=== PATIENT | male | born 1940 | race Caucasian/White ===

== ENCOUNTER 2017-11-08 10:01 | Emergency (ER) | payer OTHER, SELFPAY ==
[2017-11-08 10:12] VITALS: BP 160/86; PULSE 64; RESP 13; TEMP 38.1; O2SAT 98
--- NOTE | 2017-11-08 10:19 | ED_ITS ---
HPI - Fever General Chief Complaint: Fever Stated Complaint: FEVER Time Seen by Provider: 11/08/17 10:10 Source: patient Mode of arrival: EMS Limitations: no limitations History of Present Illness HPI Narrative: 77-year-old male here for evaluation of a fever. Patient states that he has had a fever since last week. He states that over the weekend he felt like that it improved somewhat but then came back again at the beginning of this week. Has not tried anything at home for it. Does denies any cough. Denies any rashes. States that he has been feeling chills. No recent travel. No recent antibiotics. States that he has been urinating although not as much as normal. Has no abdominal pain. Was brought in by EMS to ?get checked out ? Related Data Home Medications Medication Instructions Recorded Confirmed aspirin 325 mg PO DAILY 11/08/17 11/08/17 atenolol 25 mg PO DAILY 11/08/17 11/08/17 atorvastatin 40 mg PO DAILY 11/08/17 11/08/17 doxazosin 8 mg PO DAILY 11/08/17 11/08/17 glipizide 2 tab PO QACBREAK 11/08/17 11/08/17 linagliptin [Tradjenta] 5 mg PO DAILY 11/08/17 11/08/17 metformin 500 mg PO BIDAC 11/08/17 11/08/17 moexipril 15 mg PO BID 11/08/17 11/08/17 pantoprazole 20 mg PO QACBREAK 11/08/17 11/08/17 Previous Rx's Medication Instructions Recorded azithromycin See Label Instructions .ROUTE 11/08/17 .COMPLEX #6 tab Allergies Allergy/AdvReac Type Severity Reaction Status Date / Time sulfamethoxazole Allergy Intermediate Verified 11/08/17 11:19 [From Bactrim] trimethoprim [From Bactrim] Allergy Intermediate Verified 11/08/17 11:19 Review of Systems Constitutional Reports chills, Denies fatigue, Reports fever(s), Denies lethargy and Denies weakness Cardiovascular Denies chest pain, Denies irregular heart rhythm, Denies lightheadedness, Denies palpitations, Denies dyspnea, Denies dyspnea on exertion and Denies orthopnea Respiratory Denies cough, Denies dyspnea, Denies dyspnea on exertion and Denies wheezing Gastrointestinal Gastrointestinal: Denies abdominal pain, Denies change in bowel habits, Denies diarrhea, Denies nausea and Denies vomiting Genitourinary Comments: Still urinating although having some decreased output Musculoskeletal Denies back pain, Denies muscle weakness, Denies numbness and Denies tingling Integumentary/Breasts Denies pruritus, Denies erythema, Denies rash and Denies wounds Neurologic Denies numbness, Denies tingling and Denies weakness Endocrine Denies fatigue and Denies palpitations Hematologic/Lymphatic Denies easy bruising Allergic/Immunologic Denies wheezing [facility] Social History Smoking Status: Never smoker Exam Const General: cooperative and well developed Nutritional Appearance: well nourished Orientation: alert, awake, oriented x3 and not confused Resp Effort & Inspection: normal respiratory effort, able to speak in complete sentences, no respiratory distress and no use of accessory muscles Auscultation: clear to auscultation bilaterally, no rales, no rhonchi and no wheezes Cardio Rate: regular rate Rhythm: regular rhythm Heart Sounds: no click, no gallops, no murmurs and no rubs Pulses: normal peripheral pulses GI Inspection: non-distended Palpation: soft, no hepatosplenomegaly, No guarding, No pulsatile mass and No tender Auscultation: normal bowel sounds Skin General: no rashes or lesions noted, No jaundice and No petechiae Neuro General: alert, oriented x3, gait normal and no focal motor deficits Speech: speech normal Sensory Exam: no sensory deficits noted Extrem General: full ROM, no clubbing, cyanosis or edema, no pedal edema and no calf tenderness MDM - Fever MDM Narrative Medical decision making narrative: Patient is nontoxic appearing. Chest x-ray read by Radiology concern for left lower lobe pneumonia. Upon re-evaluation patient states that he has been coughing for the past several days. This is most likely the source of his fevers. He is still tolerating oral intake. Will give a prescription for antibiotics to cover for this pneumonia. He was instructed to contact his primary doctor for a follow-up. He is given return precautions. He expressed understanding and agreement with plan Lab Data Attestation: I reviewed the patient's lab results. Result diagrams: 11/08/17 10:30 11/08/17 10:30 Lab Results 11/08/17 11/08/17 11/08/17 Range/Units 10:30 10:30 10:30 WBC 8.6 (4.5-11.0) X10^3/uL RBC 4.58 (4.5-5.9) X10^6/uL Hgb 13.7 (13.5-17.5) g/dL Hct 39.7 L (41-53) % MCV 86.6 (80-100) fL MCH 29.9 (26-34) PG MCHC 34.5 (30-36) % RDW 13.8 (11.6-14.8) % Plt Count 122 L (150-400) X10^3/uL Neut % (Auto) 82.9 H (50-75) % Lymph % (Auto) 7.2 L (25-40) % [place] % (Auto) 9.8 (3-14) % Eos % (Auto) 0.0 L (2-4) % Baso % (Auto) 0.1 (0-2) % Neut # (Auto) 7100 H (3955-0822) /uL Sodium 130 L (137-145) mmol/L Potassium 3.4 (3.4-5.1) mmol/L Chloride 93.0 L (98-107) mmol/L Carbon Dioxide 24.0 (22-32) mmol/L BUN 20.0 (9-20) mg/dL Creatinine 1.10 (0.66-1.25) mg/dL Estimated GFR > 60.0 (>60) mL/min BUN/Creatinine Ratio 18.2 (6-22) Glucose 177 H (80-110) mg/dL Lactate 1.2 (0.7-2.1) mmol/L Calcium 7.6 L (8.4-10.2) mg/dL Urine Color Urine Appearance Urine pH (4.5-8.0) Ur Specific [place] (1.000-1.035) Urine Protein (Negative) Urine Glucose (UA) (Normal) g/dL Urine Ketones (NEGATIVE) Urine Occult Blood (Negative) Urine Nitrate (NEGATIVE) Urine Bilirubin (NEGATIVE) Urine Urobilinogen (0.2) E.U./dL Ur Leukocyte Esterase (NEGATIVE) Urine RBC (0-5/HPF) Amorphous Sediment Urine Bacteria (None) Granular Casts (None) Ur Culture Indicated? Micro UA Comment 11/08/17 Range/Units 10:45 WBC (4.5-11.0) X10^3/uL RBC (4.5-5.9) X10^6/uL Hgb (13.5-17.5) g/dL Hct (41-53) % MCV (80-100) fL MCH (26-34) PG MCHC (30-36) % RDW (11.6-14.8) % Plt Count (150-400) X10^3/uL Neut % (Auto) (50-75) % Lymph % (Auto) (25-40) % [place] % (Auto) (3-14) % Eos % (Auto) (2-4) % Baso % (Auto) (0-2) % Neut # (Auto) (9466-5273) /uL Sodium (137-145) mmol/L Potassium (3.4-5.1) mmol/L Chloride (98-107) mmol/L Carbon Dioxide (22-32) mmol/L BUN (9-20) mg/dL Creatinine (0.66-1.25) mg/dL Estimated GFR (>60) mL/min BUN/Creatinine Ratio (6-22) Glucose (80-110) mg/dL Lactate (0.7-2.1) mmol/L Calcium (8.4-10.2) mg/dL Urine Color Yellow Urine Appearance Sl cloudy Urine pH 5.0 (4.5-8.0) Ur Specific [place] 1.020 (1.000-1.035) Urine Protein 2+ (Negative) Urine Glucose (UA) 2+ (Normal) g/dL Urine Ketones 1+ H (NEGATIVE) Urine Occult Blood 3+ (Negative) Urine Nitrate Negative (NEGATIVE) Urine Bilirubin Negative (NEGATIVE) Urine Urobilinogen 0.2 (0.2) E.U./dL Ur Leukocyte Esterase Negative (NEGATIVE) Urine RBC 1-5/hpf (0-5/HPF) Amorphous Sediment 1+ Urine Bacteria Many (>30) H (None) Granular Casts Occasional H (None) Ur Culture Indicated? Cult not indicated Micro UA Comment Not Reportable Imaging Data Chest x-ray: Radiologist's impression: PROCEDURE: XR CHEST 1V INDICATIONS: Fever TECHNIQUE: One view of the chest was acquired. COMPARISON: None. FINDINGS: Surgical changes and devices: None except for surgical clips right neck area possibly from prior carotid endarterectomy or glandular surgery. Lungs and pleura: No pleural effusions or pneumothorax. Lungs are abnormal with reduced inspiratory volume in the retrocardiac left lower lobe pneumonia. Mediastinum: Mediastinal contours appear normal. Heart size is normal. Bones and chest wall: No suspicious bony lesions. Overlying soft tissues appear unremarkable. IMPRESSION: Retrocardiac left lower lobe pneumonia, reduced inspiratory volume. Dictated by: Jarett Pino M.D. on 11/08/2017 at 11:33 Course Orders Ordered: ED Orders 11/08/17 10:25 XR chest 1V Stat 11/08/17 10:30 Basic Metabolic Panel Stat Complete Blood Count AUTO DIFF Stat Lactate (Lactic Acid) Stat 11/08/17 10:45 Urinalysis and Microscopic Stat Acetaminophen (Tylenol) 650 mg PO Q4HR PRN PRN Reason: As Needed for Fever/Mild Pain Last Admin: 11/08/17 10:38 Dose: 650 mg Discontinued Medications Sodium Chloride (Normal Saline 0.9%) 1,000 mls @ 1,000 mls/hr IV BOLUS ONE Stop: 11/08/17 11:24 Last Admin: 11/08/17 10:39 Dose: 1,000 mls/hr Last Vital Signs Temp 100.3 F H 11/08/17 10:38 Pulse 64 11/08/17 10:12 Resp 13 11/08/17 10:12 BP 160/86 H 11/08/17 10:12 Pulse Ox 98 11/08/17 10:12 Discharge Plan Departure Patient Disposition: Home, Self-Care Clinical Impression: Pneumonia, Fever and chills Instructions: DI for Pneumonia -- Adult Activity Restrictions/Additional Instructions: Take all of your medications as instructed. Call your primary care doctor for a follow-up in the next week. Return to the emergency department for any new symptoms, problems breathing, inability to take her medications, or any other concerning symptoms Prescriptions: New azithromycin 250 mg tablet See Label Instructions .ROUTE .COMPLEX Qty: 6 RF: 0 No Action atorvastatin 40 mg tablet 40 mg PO DAILY RF: 0 metformin 500 mg tablet 500 mg PO BIDAC RF: 0 aspirin 325 mg Tablet 325 mg PO DAILY RF: 0 glipizide 10 mg tablet extended release 24hr 2 tab PO QACBREAK RF: 0 atenolol 25 mg tablet 25 mg PO DAILY RF: 0 pantoprazole 20 mg tablet,delayed release (DR/EC) 20 mg PO QACBREAK RF: 0 doxazosin 8 mg tablet 8 mg PO DAILY RF: 0 moexipril 15 mg tablet 15 mg PO BID RF: 0 linagliptin [Tradjenta] 5 mg tablet 5 mg PO DAILY RF: 0
--- NOTE | 2017-11-08 10:25 | DI.RAD.S_ITS ---
PROCEDURE: XR CHEST 1V INDICATIONS: Fever TECHNIQUE: One view of the chest was acquired. COMPARISON: None. FINDINGS: Surgical changes and devices: None except for surgical clips right neck area possibly from prior carotid endarterectomy or glandular surgery. Lungs and pleura: No pleural effusions or pneumothorax. Lungs are abnormal with reduced inspiratory volume in the retrocardiac left lower lobe pneumonia. Mediastinum: Mediastinal contours appear normal. Heart size is normal. Bones and chest wall: No suspicious bony lesions. Overlying soft tissues appear unremarkable. IMPRESSION: Retrocardiac left lower lobe pneumonia, reduced inspiratory volume. Dictated by: Jarett Pino M.D. on 11/08/2017 at 11:33 Approved by: Jarett Pino M.D. on 11/08/2017 at 11:34
[2017-11-08 10:38] VITALS: TEMP 37.9
[2017-11-08] MEDS: ACETAMINOPHEN 325 MG TABLET 650 MG PO (10:38)
[2017-11-08] MEDS: SODIUM CHLORIDE 0.9% 1,000 ML 1000 ML IV (10:39)
[2017-11-08 10:41] LABS: Add Manual Diff / Slide Review NO; Basophils Percent Auto 0.1 % (0-2); Hematocrit 39.7 % (41-53); Hemoglobin 13.7 g/dL (13.5-17.5); Lymphocytes Percent Auto 7.2 % (25-40); Mean Corpuscular HGB Conc 34.5 % (30-36); Mean Corpuscular Hemoglobin 29.9 PG (26-34); Mean Corpuscular Volume 86.6 fL (80-100); Monocytes Percent Auto 9.8 % (3-14); Neutrophils Absolute Auto 7100 /uL (3000-5900); Neutrophils Percent Auto 82.9 % (50-75); Platelet Count 122 X10^3/uL (150-400); Red Blood Cell Count 4.58 X10^6/uL (4.5-5.9); Red Cell Distribution Width 13.8 % (11.6-14.8); White Blood Cell Count 8.6 X10^3/uL (4.5-11.0)
[2017-11-08 10:53] LABS: BUN Creatinine Ratio 18.2 (6-22); Calcium 7.6 mg/dL (8.4-10.2); Estimated Glomerular Filt Rate > 60.0 mL/min (>60); Glucose 177 mg/dL (80-110); HEMOLYSIS < 15 (0-50); Lactate (Lactic Acid) 1.2 mmol/L (0.7-2.1); Potassium 3.4 mmol/L (3.4-5.1); Sodium 130 mmol/L (137-145)
[2017-11-08 10:55] LABS: Appearance Urine UA SL CLOUDY; Bilirubin Urine UA NEGATIVE (NEGATIVE); Color Urine UA YELLOW; Glucose Urine UA 2+ g/dL (Normal); Ketones Urine UA 1+ (NEGATIVE); Leukocyte Esterase Urine UA NEGATIVE (NEGATIVE); Nitrite Urine UA NEGATIVE (NEGATIVE); Occult Blood Urine UA 3+ (Negative); Protein Urine UA 2+ (Negative); Urobilinogen Urine UA 0.2 E.U./dL (0.2)
[2017-11-08 11:12] LABS: Amorphous Sediment Urine 1+; Bacteria Urine Many (>30); RBC Urine 1-5/HPF (0-5/HPF)
[2017-11-08 11:13] LABS: Culture Indicated Urine Cult Not Indicated; Granular Casts Urine Occasional
[2017-11-08 11:57] VITALS: BP 145/60; PULSE 70; RESP 15; TEMP 37.8; O2SAT 96
== END 2017-11-08 12:09 | disposition home or self-care (01) ==
PROVIDERS: Emergency Provider Emergency Medicine; Family Provider Family Medicine; PCP Family Medicine
DX: J18.9 Pneumonia, unspecified organism (principal); R50.9 Fever, unspecified; R68.83 Chills (without fever)
CPT/HCPCS: 36591; 71045; 80048; 81001; 83605; 85025; 96360; 99282; 99284

== ENCOUNTER → 2017-11-14 11:06 | Outpatient (CLI) | payer OTHER, SELFPAY ==
--- NOTE | 2017-11-14 | DI.US.S_ITS ---
PROCEDURE: US PERIPH VENOUS LOW EXTREM RT INDICATIONS: PAIN IN RIGHT CALF TECHNIQUE: Real-time imaging, as well as color and pulse Doppler interrogation, were performed of the lower extremity deep veins from the inguinal ligament to the popliteal fossa. COMPARISON: None. FINDINGS: The deep veins are normally compressible, and free of intraluminal thrombus. Color and pulse Doppler demonstrate normal phasic intraluminal flow. There is normal augmentation response to distal compression maneuver. IMPRESSION: Negative for DVT Dictated by: Alexandr Vega M.D. on 11/14/2017 at 14:15 Approved by: Alexandr Vega M.D. on 11/14/2017 at 14:16
== END ==
PROVIDERS: Family Provider Family Medicine; PCP Family Medicine; Visit Provider Family Medicine
DX: M79.661 Pain in right lower leg (principal)
CPT/HCPCS: 93971

== ENCOUNTER → 2017-11-28 12:51 | Outpatient (CLI) | payer OTHER, SELFPAY ==
--- NOTE | 2017-11-28 | DI.RAD.S_ITS ---
PROCEDURE: XR CHEST 2V INDICATIONS: 77 year-old male with right lower lobe pneumonia symptoms. TECHNIQUE: 2 views of the chest were acquired. COMPARISON: [facility], CR, XR CHEST 1V, 11/08/2017, 10:30. FINDINGS: Surgical changes and devices: Patient is status post transcatheter cardiac valve replacement. Right neck surgical clips are present. Lungs and pleura: No pleural effusions or pneumothorax. Posterior left hemidiaphragm is obscured by localized airspace opacity on the lateral projection. Lung volumes are decreased. Mediastinum: Mediastinal contours are normal. Heart size is normal. Bones and chest wall: No suspicious bony abnormalities. Soft tissues appear unremarkable. IMPRESSION: Possible posterior left lung base pneumonia. Decreased lung volumes. Dictated by: Abner Gonzalez M.D. on 11/28/2017 at 13:26 Approved by: Abner Gonzalez M.D. on 11/28/2017 at 13:29
== END ==
PROVIDERS: PCP Family Medicine; Visit Provider Family Medicine
DX: J18.1 Lobar pneumonia, unspecified organism (principal)
CPT/HCPCS: 71046

== ENCOUNTER → 2018-08-16 09:19 | Outpatient (CLI) | payer OTHER, SELFPAY ==
--- NOTE | 2018-08-16 | DI.MRI.S_ITS ---
PROCEDURE: MR LUMBAR SPINE WO CON INDICATIONS: BILATERAL HIP PAIN TECHNIQUE: Noncontrast sagittal T1 spin echo and T2 fast echo, sagittal STIR, axial T1 and T2 fast spin echo through the lumbar spine. In cases with scoliosis, additional coronal T2 fast spin echo may be performed. COMPARISON: None. FINDINGS: Image quality: Excellent. Alignment and Curvature: There is normal bony alignment. Bone Marrow: Marrow is of normal overall signal. No acute vertebral body compression fractures. Spinal Cord: Conus medullaris terminates at the L1 level. Visualized cord demonstrates normal signal and size. Paraspinous Soft Tissues: No paravertebral masses. Numerous peripelvic cysts can be seen involving the kidneys. T12-L1: Normal appearance. L1-L2: Mild loss of disc height is seen. Loss of disc signal is seen. Mild to moderate disc bulge is seen. Moderate bilateral neural foraminal narrowing is seen. Mild central canal narrowing is seen. L2-L3: Mild loss of disc height is seen. Loss of disc signal is seen. Moderate disc bulge is seen, which is eccentric to the left. There is mild to moderate right-sided and moderate left-sided neural foraminal narrowing seen. Mild to moderate central canal narrowing is seen. L3-L4: The disc height is well-preserved. Loss of disc signal is seen at this level. Moderate disc bulge is seen, which is eccentric to the left. Mild facet joint hypertrophy is seen. There is mild to moderate bilateral neural foraminal narrowing seen, left worse than right. Mild to moderate central canal narrowing is seen. L4-L5: The disc height is well-preserved. Loss of disc signal is seen at this level. At least moderate disc bulge is seen. Moderate facet joint hypertrophy is seen. Moderate to severe bilateral neural foraminal narrowing is seen. There is a degree of impingement seen upon the exiting nerve roots. At least moderate central canal narrowing is seen. L5-S1: At least moderate loss of disc height and disc signal are seen. Along the posterior aspect of the annulus fibrosis, there is a focal annular fissure, as on series 4 image 9. Moderate disc bulge is seen, with a central/left disc extrusion. There is inferior migration of disc material. Reactive marrow endplate changes are seen which are hypointense on T1-weighted imaging and hyperintense on T2 weighted imaging, which is most consistent with edema (Modic type I changes). Moderate to severe bilateral neural foraminal narrowing is seen, right greater than left. There is a degree of impingement seen upon the exiting nerve roots. Moderate central canal narrowing is seen. IMPRESSION: Multiple levels of lumbar spine degenerative changes are seen, which are overall most prominent at L5-S1 level. At this level, there is endplate edema with moderate to severe bilateral neural foraminal narrowing and moderate to severe central canal narrowing. A central/left disc extrusion is also seen at this level. Dictated by: Damir Murrell M.D. on 08/16/2018 at 9:52 Approved by: Damir Murrell M.D. on 08/16/2018 at 9:58
== END ==
PROVIDERS: Family Provider Family Medicine; PCP Family Medicine; Visit Provider Physical Medicine & Rehabilitation Pain Medicine
DX: M25.551 Pain in right hip (principal); M25.552 Pain in left hip; M47.817 Spondylosis without myelopathy or radiculopathy, lumbosacral region; M47.816 Spondylosis without myelopathy or radiculopathy, lumbar region; M48.07 Spinal stenosis, lumbosacral region; M48.061 Spinal stenosis, lumbar region without neurogenic claudication
CPT/HCPCS: 72148

== ENCOUNTER → 2019-03-07 07:39 | Outpatient (CLI) | payer OTHER, SELFPAY ==
--- NOTE | 2019-03-07 | DI.MRI.S_ITS ---
PROCEDURE: MR HIPS LEONILA WO CON INDICATIONS: BILATERAL PRIMARY OSTEOARTHRITIS TECHNIQUE: Noncontrast coronal T1 spin echo and STIR through the bony pelvis. Coronal and axial T2 fast spin echo with fat saturation, sagittal T1 spin echo, and oblique axial T2 fast spin echo with fat saturation through the hip. COMPARISON: None. FINDINGS: Image quality: Excellent. Bones and joints: There is mild to moderate bilateral hip joint space narrowing slightly worse on the right side with subchondral sclerosis. No marrow edema. No acute fracture or dislocation. No gross intraosseous lesions. No avascular necrosis of the femoral heads. The visualized lower lumbar spine appears normally aligned. Degenerative disc disease in visualized lower lumbar spine is seen most prominent at L5-S1 level. Tendons and ligaments: The gluteus medius and minimus tendons appear intact, without associated muscle atrophy. The nearby proximal iliotibial band also appears intact. The iliopsoas tendon appears intact, without adjacent bursal fluid collections or evidence for impingement syndrome. The origin of the hamstring tendon is intact at the ischial tuberosity, as well as the associated sacrotuberous ligament. The straight and reflected heads of the rectus femoris muscle origin appear intact, as well as the conjoint tendon. The ligamentum teres appears intact where visualized. Labrum and cartilage: There is suggestion of bilateral superior anterior labral tear in the absence of intra-articular contrast. The alpha angle of the femur is within normal limits at less than 55 degrees. Soft tissues: Visualized muscles demonstrate normal bulk and internal signal. Quadratus femoris muscle demonstrates no internal edema to suggest ischiofemoral impingement. The proximal sciatic neurovascular bundle appears normal adjacent to the hamstring tendons. No free pelvic fluid. Bladder wall thickness is normal. Genitourinary structures and bowel loops appear normal where visualized. IMPRESSION: 1. Right worse than left bilateral hip joint osteoarthritis. No marrow edema. No fracture or dislocation. No evidence of avascular necrosis of femoral head. 2. Degenerative disc disease at L5-S1 level. 3. Finding is suspicious for bilateral superior anterior hip labral tear in the absence of intra-articular contrast. Dictated by: Amaury Kaur M.D. on 03/07/2019 at 11:24 Approved by: Amaury Kaur M.D. on 03/07/2019 at 14:36
== END ==
PROVIDERS: PCP Family Medicine; Visit Provider Orthopaedic Surgery
DX: M16.0 Bilateral primary osteoarthritis of hip (principal); M51.37 Other intervertebral disc degeneration, lumbosacral region
CPT/HCPCS: 73721

== ENCOUNTER → 2019-04-05 16:40 | Outpatient (CLI) | payer OTHER, SELFPAY | PROVIDERS: PCP Family Medicine | DX: Z23 Encounter for immunization (principal) | CPT/HCPCS: 90471; 90662 ==

== ENCOUNTER → 2019-06-05 10:02 | Outpatient (CLI) | payer OTHER, SELFPAY ==
--- NOTE | 2019-06-05 12:19 | DIET.PN ---
Diabetes Intake: Initial Assessment Assess: Mr. Ty is a 78 YOM referred for type 2 diabetes. He was diagnosed several years ago and has been taking metformin, glipizide, and lantus. He has not been consistent with monitoring his BG until recently. He continues to notice an upward trend as the day progresses starting with a FBG in the 130 increasing to 250-280 by the end of the day. He reports no specific dietary habits. He does not eat 3 meals per day, but rather grazes all day long. He admits to having a sweet tooth and is always looking for sugar free cookies and snacks. Neither he nor his cook regularly as his does dialysis 3x/wk and often does not have energy to prepare meals. He has recently been place on Humalog which he has not yet began as he was concerned with how this medication works. He is not interested in checking his BG several times per day and therefore purchased the freestyle humberto sensor for continuous glucose monitoring. His concern with this new regimen is how much to take and what his goal numbers should be. Labs: Per pt report: A1c: 8.5 (05/15) FB?s Evenin-300 Meds: lantus: 13 u am/pm Novolo u 2x/day (not yet taking) Metformin: 500 mg BID Glipizde XL: 10 mg x2 am Diet: per 24 hr recall: inconsistent dietary patterns. Reports grazing throughout the day. Does not count/understand carbohydrates DX: Altered nutrition related laboratory values related to impaired glucose metabolism, lack of previous exposure to nutrition information as evidenced by pt report, diagnosis of diabetes, previous diet high in refined carbohydrates. Intervention: 1. Discussed pathophysiology of diabetes. Reviewed A1c and its correlation to blood glucose numbers. Discussed recommended BG ranges. 2. Discussed importance of self-monitoring, how often, and when to check. Discussed use of freestyle humberto CGM. 3. Reviewed hyper/hypoglycemia and treatment. 4. Reviewed safe disposal of equipment (strip/lancets/insulin needles). 5. Discussed medication management. Described difference between rapid and long acting insulin. 6. Discussed appropriate use of Humalog and when to administer. Recommend patient start with 3 units with meals greater than 30 grams of carb. Pt will keep a record of FBG, pre-meal, and evening glucose. Will evaluate at follow up. 7. Discussed administer sites. Recommend patient alternate outer thigh and stomach. Reviewed appropriate steps for administering. Monitor/Evaluate: Will discuss carbohydrate counting and review blood glucose log and discuss medication management at follow up on Jul 13.
== END ==
PROVIDERS: PCP Family Medicine; Visit Provider Family Medicine
DX: E11.9 Type 2 diabetes mellitus without complications (principal); Z79.84 Long term (current) use of oral hypoglycemic drugs; Z79.4 Long term (current) use of insulin; Z71.3 Dietary counseling and surveillance
CPT/HCPCS: 97802

== ENCOUNTER → 2019-07-20 10:44 | Outpatient (CLI) | payer OTHER, SELFPAY ==
--- NOTE | 2019-07-20 14:16 | DIET.PN ---
INDIVIDUAL NUTRITION ASSESSMENT? ? ASSESS:? Mr. Ty is a 78 yom?seen for diabetes nutrition F/U. He has been wearing a CGM for 2 weeks and brings his results in with him today. His patterns appear to be consistent; however, it is difficult to associate his hyperglycemic events. He has very inconsistent dietary patterns and is far less worried about his caloric intake as he is his numbers and medication management. He reports he does not eat much sugar, but then states he had a cinnamon roll for breakfast without the glaze. He has been taking 13 u of lantus a.m. and p.m., but he has not yet started his Humalog which we discussed in our prior appt. He presents with similar questions from our previous visit regarding accuracy of his CGM, when to take his Humalog, and what his glucose numbers should be. ? LABS: A1c: 8.5 FB-121 between BF & L: 211-340 between L&D: 102-180 ? Weight: 218 ? DIET: inconsistent dietary patterns ? EXERCISE:??no exercise, but is active with heavy lifting at work ? NUTRITION Dx? 1. Altered nutrition related labs r/t type 2 DM, inconsistent carbohydrate intake as evidenced by pt report, dietary recall.?? ? INTERVENTION? 1. Reviewed blood sugar log and implications/reasons for elevated/decreased blood sugar.? Spent a considerate amount of time discussing appropriate glucose levels, the importance of meal timing and medications in pattern management. ? 2. Reviewed meal intake and importance of balanced meals (kirit to prevent overeating).??? 3. Discussed possible lag time between CGM and POC finger sticks. Recommended patient continue to monitor pre-meal ?finger stick? BG to ensure appropriate meal time insulin is achieved. 4. Discussed importance of limiting sugar/starchy foods for better glucose control. Will spend our next appt specifically on CHO counting and easy meal preparation. ? MONITOR/EVALUATE: Pt receptive to information provided.? Follow up scheduled for 2 weeks to review to CGM with novolog and discuss CHO counting.
== END ==
PROVIDERS: PCP Family Medicine; Visit Provider Family Medicine
DX: E11.9 Type 2 diabetes mellitus without complications (principal)
CPT/HCPCS: 97803

== ENCOUNTER 2019-07-21 14:29 | Emergency (ER) | payer OTHER, SELFPAY ==
[2019-07-21 14:29] VITALS: BP 110/78; PULSE 63; RESP 16; O2SAT 97; BMI 31.6
[2019-07-21] MEDS: HEPARIN DRIP 25,000 UNIT/500 ML IV.SOLN 20 UNIT IV (14:32)
[2019-07-21] MEDS: ASPIRIN 81 MG CHEW TAB 324 MG PO (14:32)
[2019-07-21] MEDS: HEPARIN 5,000 UNIT/ML VIAL 5000 UNIT IV (14:32)
--- NOTE | 2019-07-21 14:36 | ED_ITS ---
HPI - Chest Pain General Chief Complaint: Chest Pain Stated Complaint: STEMI Time Seen by Provider: 07/21/19 14:31 Source: patient Mode of arrival: Ambulatory Limitations: no limitations History of Present Illness HPI narrative: The patient is a 78-year-old male employee of [employer] with history of coronary artery disease including stents and TAVR, presenting with chest discomfort shortness of breath and diaphoresis. He says he actually had an episode like this yesterday which resolved. 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 Nonradiating he's extremely diaphoretic and short of breath. It started roughly 5 minutes prior to arrival MD complaint: chest pain Onset (ago): minute(s) Onset: during exertion Pain location: substernal Severity: moderate Quality: tightness and heaviness Pain radiation: none Relieving factors: nothing Exacerbating factors: nothing Related Data Home Medications Medication Instructions Recorded Confirmed aspirin 325 mg PO DAILY 11/08/17 11/08/17 atenolol 25 mg PO DAILY 11/08/17 11/08/17 atorvastatin 40 mg PO DAILY 11/08/17 11/08/17 doxazosin 8 mg PO DAILY 11/08/17 11/08/17 glipizide 2 tab PO QACBREAK 11/08/17 11/08/17 linagliptin [Tradjenta] 5 mg PO DAILY 11/08/17 11/08/17 metformin 500 mg PO BIDAC 11/08/17 11/08/17 moexipril 15 mg PO BID 11/08/17 11/08/17 pantoprazole 20 mg PO QACBREAK 11/08/17 11/08/17 Previous Rx's Medication Instructions Recorded azithromycin See Rx Instructions .ROUTE 11/08/17 .COMPLEX #6 tab Allergies Allergy/AdvReac Type Severity Reaction Status Date / Time sulfamethoxazole Allergy Intermediate Verified 11/08/17 11:19 [From Bactrim] trimethoprim [From Bactrim] Allergy Intermediate Verified 11/08/17 11:19 Review of Systems Review of Systems Narrative: GENERAL: Denies chills, fatigue, malaise, fever, sweats, travel HEENT: Denies sinus pain, ear pain, sore throat, difficulty swallowing, neck pain RESPIRATORY: Denies dyspnea, cough, wheezing, hemoptysis, sputum. CARDIOVASCULAR: See HPI GASTROINTESTINAL: Denies nausea, vomiting, abdominal pain, diarrhea, constipation, melena. : Denies dysuria, frequency, incontinence, hematuria, urinary retention, flank pain. MUSCULOSKELETAL: Denies weakness, joint pain, or bony pain SKIN: No rash, no erythema, no pruritus NEUROLOGIC: Denies weakness, dizziness, headache, numbness, change in speech, confusion PSYCHIATRIC: No concerning psychosocial issues. 12 point review of systems is negative except for those stated above and HPI Patient History Medical History Coronary artery disease (Acute) Diabetes (Acute) Hyperlipidemia (Acute) Hypertension (Acute) Social History Smoking Status: Never smoker Smoking Status: Never smoker alcohol intake frequency: 0-2 drinks per day Substance Use Type: does not use Exam Initial Vital Signs Initial Vital Signs: Vital Signs Pulse Rate 63 07/21/19 14:29 Respiratory Rate 16 07/21/19 14:29 Blood Pressure 110/78 07/21/19 14:29 Pulse Oximetry 97 07/21/19 14:29 GENERAL: Pale diaphoretic male appears in discomfort HEENT: Head atraumatic,EOMI, pupils reactive CARDIOVASCULAR: Regular rate and rhythm without murmurs, rubs or gallops. RESPIRATORY: Breath sounds equal bilaterally, no wheezes rales or rhonchi. ABDOMEN: Soft, nontender. Normoactive bowel sounds all 4 quadrants. No guarding or rebound. EXTREMITIES: Normal range of motion, no clubbing or edema. Neurovascularly intact NEUROLOGICAL: Alert and oriented x4.Normal gait and speech. Cranial nerves II through XII grossly intact. SKIN: Warm, dry, no laceration, no petechiae, no rashes or lesions. Course Orders Ordered: ED Orders 07/21/19 14:34 XR chest 1V Stat EKG-12 Lead Stat 07/21/19 14:40 Complete Blood Count AUTO DIFF Stat Comprehensive Metabolic Panel Stat Lipase Stat Partial Thromboplastin Time DAILY Troponin & CK Cardiac Panel Stat Discontinued Medications Aspirin (Aspirin Chew) 324 mg PO NOW ONE Stop: 07/21/19 14:32 Last Admin: 07/21/19 14:32 Dose: 324 mg Documented by: BRIANNA Heparin Sodium (Porcine) (Heparin) 5,000 unit IV NOW ONE Stop: 07/21/19 14:32 Last Admin: 07/21/19 14:32 Dose: 5,000 unit Documented by: BRIANNA Sodium Chloride (Normal Saline 0.9%) 1,000 mls @ 150 mls/hr IV CONT JOHN Last Admin: 07/21/19 14:45 Dose: Not Given Documented by: BRIANNA Heparin Sodium/Dextrose (Heparin Drip) 25,000 unit in 500 mls @ 20 mls/hr IV CONT JOHN; Protocol Last Titration: 07/21/19 14:38 Dose: 0 units/hr, 0 mls/hr Documented by: Admin: 07/21/19 14:32 Dose: 1,000 units/hr, 20 mls/hr Documented by: BRIANNA Vital Signs Vital signs: Vital Signs - 8 hr 07/21/19 14:29 Pulse Rate 63 Respiratory Rate 16 Blood Pressure 110/78 Pulse Oximetry 97 MDM - Chest Pain Lab Data Result diagrams: 07/21/19 14:40 07/21/19 14:40 Labs: Lab Results 07/21/19 07/21/19 07/21/19 Range/Units 14:40 14:40 14:40 WBC 10.0 (4.5-11.0) X10^3/uL RBC 4.59 (4.5-5.9) X10^6/uL Hgb 13.8 (13.5-17.5) g/dL Hct 40.0 L (41-53) % MCV 87.1 (80-100) fL MCH 30.0 (26-34) PG MCHC 34.4 (30-36) % RDW 13.3 (11.6-14.8) % Plt Count 137 L (150-400) X10^3/uL Neut % (Auto) 62.2 (50-75) % Lymph % (Auto) 24.4 L (25-40) % [place] % (Auto) 12.6 (3-14) % Eos % (Auto) 0.6 L (2-4) % Baso % (Auto) 0.2 (0-2) % Neut # (Auto) 6200 ([address]187) /uL Lymph # (Auto) 2400 (1657-6219) /uL [place] # (Auto) 1300 H (0-900) /uL Eos # (Auto) 100 (0-450) /uL Baso # (Auto) 0 (0-100) /uL APTT 32 (26.4-36.2) SECONDS Sodium 140 (137-145) mmol/L Potassium 4.3 (3.4-5.1) mmol/L Chloride 107 (98-107) mmol/L Carbon Dioxide 22 (22-32) mmol/L BUN 32 H (9-20) mg/dL Creatinine 1.30 H (0.66-1.25) mg/dL Estimated GFR 53.1 L (>60) mL/min BUN/Creatinine Ratio 24.6 H (6-22) Glucose 202 H (80-110) mg/dL Calcium 9.3 (8.4-10.2) mg/dL Total Bilirubin 0.6 (0.2-1.3) mg/dL AST 80 H (17-59) IU/L ALT 32 (<50) IU/L Alkaline Phosphatase 60 (38-126) U/L Total Creatine Kinase 342 H (55-170) U/L CK-MB (CK-2) 6.61 H (<2.37) ng/mL CK-MB (CK-2) Rel Index 1.9 (1.5-5.0) % Troponin I 8.470 H* (0.01-0.034) ng/mL Total Protein 7.3 (6.3-8.2) g/dL Albumin 3.8 (3.5-5.0) g/dL Globulin 3.5 (1.7-4.1) g/dL Albumin/Globulin Ratio 1.1 (1.0-2.8) Lipase 222 (23-300) U/L Imaging Data Chest x-ray: Attestation: I personally reviewed and interpreted this imaging study as follows: My Impression: No acute cardiopulmonary process Radiologist's Impression: PROCEDURE: XR CHEST 1V INDICATIONS: Chest pain TECHNIQUE: One view of the chest was acquired. COMPARISON: [facility], CR, XR CHEST 2V, 11/28/2017, 12:33. FINDINGS: Surgical changes and devices: Post surgical changes at the base of the right neck are incidentally noted. Lungs and pleura: Lungs are clear. No pleural effusions or pneumothorax. Subtle area of a linear increased density is evident at the left costophrenic angle, suggesting scarring versus atelectasis. Mediastinum: Mediastinal contours appear normal. Heart size is borderline enlarged. Bones and chest wall: No suspicious bony lesions. Overlying soft tissues appear unremarkable. IMPRESSION: No acute cardiopulmonary process is evident. Dictated by: Pollo Connor M.D. on 07/21/2019 at 13:43 ECG Data Attestation: I personally reviewed and interpreted this ECG as follows: Prior ECG tracings: not available for review Interpretation: ST elevation V1 and V2 with peak Ts in V3 and be for ST depression in 2 3 AVF no priors to compare MDM Narrative Medical decision making narrative: STEMI identified immediately is. EMS likely already in the emergency department. I called and spoke with Dr. Gann ER physician at [facility] updated patient's symptoms test results happy to accept patient for emergent transfer. Heparin was started in the emergency department he was given aspirin and nitro by EMS. Critical Care Time Critical Care Time Critical Care Time: Yes Total Critical Care Time: 10 Attestation: The high probability of a clinically significant, sudden or life threatening deterioration of the [cardiovascular] system(s) required my full and direct attention, intervention and personal management. The aggregate critical care time was [10] minutes. This time is in addition to time spent performing reported procedures but includes the following: [x] Data Review and interpretation [x] Patient assessment and monitoring of vital signs [x] Documentation [x] Medication orders and management Discharge Plan Departure Patient Disposition: [facility] Clinical Impression: ST elevation (STEMI) myocardial infarction Qualifiers: Involved coronary artery: LAD coronary artery Qualified Code(s): I21.02 - ST elevation (STEMI) myocardial infarction involving left anterior descending coron matilde artery Discharge Date/Time: 07/21/19 14:40 Prescriptions: No Action atorvastatin 40 mg tablet 40 mg PO DAILY RF: 0 metformin 500 mg tablet 500 mg PO BIDAC RF: 0 aspirin 325 mg Tablet 325 mg PO DAILY RF: 0 glipizide 10 mg tablet extended release 24hr 2 tab PO QACBREAK RF: 0 atenolol 25 mg tablet 25 mg PO DAILY RF: 0 pantoprazole 20 mg tablet,delayed release (DR/EC) 20 mg PO QACBREAK RF: 0 doxazosin 8 mg tablet 8 mg PO DAILY RF: 0 moexipril 15 mg tablet 15 mg PO BID RF: 0 linagliptin [Tradjenta] 5 mg tablet 5 mg PO DAILY RF: 0 azithromycin 250 mg tablet See Rx Instructions .ROUTE .COMPLEX Qty: 6 RF: 0 Referrals: Ian Manning MD [Primary Care Provider] -
[2019-07-21 14:44] LABS: Add Manual Diff / Slide Review NO; Basophils Absolute Auto 0 /uL (0-100); Basophils Percent Auto 0.2 % (0-2); Eosinophils Absolute Auto 100 /uL (0-450); Eosinophils Percent Auto 0.6 % (2-4); Hemoglobin 13.8 g/dL (13.5-17.5); Lymphocytes Absolute Auto 2400 /uL (1100-4500); Lymphocytes Percent Auto 24.4 % (25-40); Mean Corpuscular HGB Conc 34.4 % (30-36); Mean Corpuscular Volume 87.1 fL (80-100); Monocytes Absolute Auto 1300 /uL (0-900); Monocytes Percent Auto 12.6 % (3-14); Neutrophils Absolute Auto 6200 /uL (1500-7000); Neutrophils Percent Auto 62.2 % (50-75); Platelet Count 137 X10^3/uL (150-400); Red Blood Cell Count 4.59 X10^6/uL (4.5-5.9); Red Cell Distribution Width 13.3 % (11.6-14.8)
[2019-07-21 14:56] LABS: Alanine Aminotransferase 32 IU/L (<50); Albumin 3.8 g/dL (3.5-5.0); Albumin Globulin Ratio 1.1 (1.0-2.8); Alkaline Phosphatase 60 U/L (38-126); Aspartate Aminotransferase 80 IU/L (17-59); BUN Creatinine Ratio 24.6 (6-22); Bilirubin Total 0.6 mg/dL (0.2-1.3); Blood Urea Nitrogen 32 mg/dL (9-20); Calcium 9.3 mg/dL (8.4-10.2); Carbon Dioxide 22 mmol/L (22-32); Chloride 107 mmol/L (98-107); Creatine Kinase 342 U/L (55-170); Estimated Glomerular Filt Rate 53.1 mL/min (>60); Globulin 3.5 g/dL (1.7-4.1); Glucose 202 mg/dL (80-110); HEMOLYSIS < 15 (0-50); Lipase 222 U/L (23-300); Potassium 4.3 mmol/L (3.4-5.1); Sodium 140 mmol/L (137-145); Total Protein 7.3 g/dL (6.3-8.2)
[2019-07-21 15:11] LABS: CKMB % Relative Index 1.9 % (1.5-5.0); Creatine Kinase MB 6.61 ng/mL (<2.37)
[2019-07-21 15:17] LABS: PTT Partial Thromboplastin Tim 32 SECONDS (26.4-36.2)
== END 2019-07-21 14:40 | disposition short-term general hospital (02) ==
PROVIDERS: Emergency Provider Emergency Medicine; PCP Family Medicine
DX: I21.02 ST elevation (STEMI) myocardial infarction involving left anterior descending coronary artery (principal); I10 Essential (primary) hypertension; E78.5 Hyperlipidemia, unspecified; I25.10 Atherosclerotic heart disease of native coronary artery without angina pectoris; E11.9 Type 2 diabetes mellitus without complications
CPT/HCPCS: 36415; 71045; 80053; 82550; 82553; 83690; 84484; 85025; 85730; 93005; 93010; 96374; 99284; 99285; J1644

== ENCOUNTER 2019-07-28 09:47 | Inpatient (IN) | payer OTHER, SELFPAY ==
[2019-07-28] VITALS (14 sets, daily range): BP systolic 103–133; BP diastolic 55–89; PULSE 68–81; RESP 16–30; TEMP 36.4–37.4; O2SAT 95–100; BMI 32.6; BMI 31.2
--- NOTE | 2019-07-28 | DI.ECHO.S_ITS ---
[facility]---------+ [facility] +---------+ : : [address] : : : : [place] : : : : [id number] : : : : Phone: [phone]+ Echocardiogram Report + + :Name: DAVID COATES Study Date: 07/29/2019 Height: 68 in : :[facility] Exam Location: [facility] Weight: 208 lb : : Gender: Male BSA: 2.1 m2 : :: 1940 Age: 78 yrs BP: 129/94 mmHg: :Reason For Study: Recent STEMI : :Ordering Physician: Mckinley : :Hospitalist Performed By: Julianna Tadeo : :Referring: ALLY NEGRO : + + Interpretation Summary The left ventricle is normal in size. Left ventricular systolic function is severely reduced. The ejection fraction is estimated to be 20-25%. There has been no significant change since the previous study based on personal review of prior study. Compared to the prior exam, the left ventricular wall motion has not changed. Procedure: A two-dimensional transthoracic echocardiogram with color flow and Doppler was performed in limited views only. Focused echocardiogram to assess wall motion. See prior echocardiogram for assessment of valves. The study quality was technically adequate. Comparison is made with the echocardiogram of 07/22/2019. The patient was in normal sinus rhythm during the exam. Left Ventricle: The left ventricle is normal in size. Left ventricular wall thickness is mildly increased. There is no thrombus. Left ventricular systolic function is severely reduced. The ejection fraction is estimated to be 20-25%. There has been no significant change since the previous study. Compared to the prior exam, the left ventricular wall motion has not changed. Right Ventricle: The right ventricle is not well visualized. Mitral Valve: There is mild mitral regurgitation. Pericardium/ Pleura There is no pericardial effusion. There is no pleural effusion. MMode/2D Measurements & Calculations LVIDd: 5.7 cm LVIDs: 3.7 cm FS: 35.2 % IVSd: 1.1 cm LVPWd: 1.6 cm LV solano. diameter/BSA (cm/m^2): 2.7 LV sys. diameter/BSA (cm/m^2): 1.8 Reading Physician:04:10 PM
--- NOTE | 2019-07-28 10:06 | ED_ITS ---
HPI - General Adult General Chief complaint: Shortness of Breath/Dyspnea Stated complaint: difficulty breathing, dry mouth Time Seen by Provider: 07/28/19 09:59 Source: patient Mode of arrival: Ambulatory Limitations: no limitations History of Present Illness HPI narrative: Patient is an 78-year-old male. Known coronary artery disease. Within the past week was seen here in our emergency department and transferred to [facility] with a diagnosis of a ST-elevation NM. Patient states that he did have a cardiac stent placed. Was discharged home 4 days ago. States that he has been taking his medications. States that since his discharge she has been short of breath. He returns today for continued short of breath. He states he has a follow-up appointment on the with Cardiology and he felt like he could not wait that long because of the shortness of breath and also his children thought that he was having more problems. He denies any chest pain. No lightheadedness. He states that his symptoms today are not any worse than when he was discharged from the hospital. No lower extremity swelling. Related Data Home Medications Medication Instructions Recorded Confirmed glipizide 2 tab PO QACBREAK 11/08/17 07/28/19 metformin 500 mg PO BIDAC 11/08/17 07/28/19 apixaban 5 mg PO BID 07/28/19 07/28/19 aspirin [Adult Low Dose Aspirin] 81 mg PO DAILY 07/28/19 07/28/19 brimonidine 1 drp EYE-BOTH BID 07/28/19 07/28/19 coenzyme Q10 100 mg PO DAILY 07/28/19 07/28/19 dorzolamide-timolol (PF) 1 drp OPHTHALMIC (EYE) BID 07/28/19 07/28/19 insulin glargine [Lantus U-100 13 unit SUBCUT BID 07/28/19 07/28/19 Insulin] latanoprost 1 drp OPHTHALMIC (EYE) BEDTIME 07/28/19 07/28/19 lisinopril 2.5 mg PO DAILY 07/28/19 07/28/19 metoprolol succinate 25 mg PO DAILY 07/28/19 07/28/19 pantoprazole 20 mg PO DAILY 07/28/19 07/28/19 rosuvastatin 40 mg PO BEDTIME 07/28/19 07/28/19 spironolactone 12.5 mg PO DAILY 07/28/19 07/28/19 Allergies Allergy/AdvReac Type Severity Reaction Status Date / Time sulfamethoxazole Allergy Intermediate Verified 07/28/19 10:24 [From Bactrim] trimethoprim [From Bactrim] Allergy Intermediate Verified 07/28/19 10:24 Review of Systems Constitutional Constitutional: Denies fatigue and Denies headache(s) ENT Ears, Nose, Mouth, and Throat: Denies headache(s) Cardiovascular Cardiovascular: Denies chest pain, Denies syncope, Denies rapid heart rate, Denies pedal edema, Denies edema, Denies palpitations, Reports dyspnea and Reports dyspnea on exertion Respiratory Respiratory: Denies cough, Reports dyspnea and Reports dyspnea on exertion Gastrointestinal Gastrointestinal: Denies abdominal pain, Denies nausea and Denies vomiting Genitourinary Genitourinary: Denies dysuria Musculoskeletal Musculoskeletal: Denies myalgias and Denies arthralgias Integumentary/Breasts Skin/Breast: Denies lesions and Denies rash Neurologic Neurologic: Denies behavioral changes, Denies syncope and Denies headache(s) Psychiatric Psychiatric: Denies behavioral changes Endocrine Endocrine: Denies fatigue and Denies palpitations Hematologic/Lymphatic Comments: On blood thinners Allergic/Immunologic Allergic/Immunologic: Denies urticaria Patient History Medical History Coronary artery disease (Acute) Diabetes (Acute) Hyperlipidemia (Acute) Hypertension (Acute) Social History Smoking Status: Never smoker Smoking Status: Never smoker alcohol intake frequency: 0-2 drinks per day Substance Use Type: does not use Exam Initial Vital Signs Initial Vital Signs: Vital Signs Temperature 97.7 F 07/28/19 09:48 Pulse Rate 79 07/28/19 09:48 Respiratory Rate 26 H 07/28/19 09:48 Blood Pressure 133/84 07/28/19 09:48 Pulse Oximetry 99 07/28/19 09:48 Const General: cooperative, comfortable and well developed Limitations: mental status not altered [facility] Head: normal to inspection and normocephalic Resp Effort & Inspection: no cough, labored, no pursed lip breathing, no retractions, no stridor, tachypneic, no tracheal deviation and no tripod positioning Auscultation: clear to auscultation bilaterally Cardio Rate: regular rate Rhythm: regular rhythm GI Inspection: non-distended Palpation: soft Skin Lesions: no lesions Rashes: no rashes Neuro General: alert, awake and oriented x3 Cognition: normal cognition Speech: speech normal Extrem General: normal to inspection and capillary refill normal Psych Appearance: grossly normal and well kempt Scores GCS Michael coma scale eye opening: Spontaneous [place] coma scale verbal response: Orientated Michael coma scale motor response: Obey commands [place] coma scale total score: 15 Course Orders Ordered: ED Orders 07/28/19 10:07 XR chest 1V Stat 07/28/19 10:20 Complete Blood Count AUTO DIFF Stat Comprehensive Metabolic Panel Stat Lipase Stat NT-proBNP (BNP-Adult 18+) Stat Partial Thromboplastin Time Stat Procalcitonin Stat Prothrombin Time INR Stat Troponin I Stat 07/28/19 12:35 Troponin & CK Cardiac Panel Stat 07/28/19 14:16 Consult to Physician Routine Discontinued Medications Aspirin (Aspirin Chew) 324 mg PO NOW ONE Stop: 07/28/19 10:07 Last Admin: 07/28/19 10:34 Dose: 324 mg Documented by: SHIRA Furosemide (Lasix) 40 mg IV NOW ONE Stop: 07/28/19 10:26 Last Admin: 07/28/19 10:34 Dose: 40 mg Documented by: SHIRA Vital Signs Vital signs: Vital Signs - 8 hr 07/28/19 09:48 07/28/19 09:56 07/28/19 10:23 Temperature 97.7 F 97.7 F Pulse Rate 79 79 78 Respiratory Rate 26 H 26 H 24 Blood Pressure 133/84 Blood Pressure [Right Arm] 133/84 131/73 Pulse Oximetry 99 99 100 07/28/19 10:50 07/28/19 12:00 07/28/19 12:40 Temperature Pulse Rate 76 77 73 Respiratory Rate 20 18 Blood Pressure Blood Pressure [Right Arm] 118/80 128/89 133/65 Pulse Oximetry 100 99 100 07/28/19 13:20 07/28/19 13:30 07/28/19 14:00 Temperature Pulse Rate 68 74 74 Respiratory Rate 18 26 H 29 H Blood Pressure Blood Pressure [Right Arm] 107/68 119/71 124/66 Pulse Oximetry 97 99 100 Medical Decision Making Medical Records Medical records reviewed: Yes I reviewed the patient's medical records. Lab Data Lab results reviewed: Yes I reviewed the patient's lab results. Result diagrams: 07/28/19 10:20 07/28/19 10:20 Labs: Lab Results 07/28/19 07/28/19 07/28/19 Range/Units 10:20 10:20 10:20 WBC 12.4 H (4.5-11.0) X10^3/uL RBC 4.05 L (4.5-5.9) X10^6/uL Hgb 12.1 L (13.5-17.5) g/dL Hct 35.7 L (41-53) % MCV 88.1 (80-100) fL MCH 29.9 (26-34) PG MCHC 33.9 (30-36) % RDW 13.4 (11.6-14.8) % Plt Count 283 (150-400) X10^3/uL Neut % (Auto) 69.3 (50-75) % Lymph % (Auto) 16.9 L (25-40) % [place] % (Auto) 11.8 (3-14) % Eos % (Auto) 1.1 L (2-4) % Baso % (Auto) 0.9 (0-2) % Neut # (Auto) 8600 H (9848-5084) /uL Lymph # (Auto) 2100 (3381-7926) /uL [place] # (Auto) 1500 H (0-900) /uL Eos # (Auto) 100 (0-450) /uL Baso # (Auto) 100 (0-100) /uL PT 23.0 H (10.1-12.7) SECONDS INR 2.0 H (0.9-1.3) APTT 37 H D (26.4-36.2) SECONDS Sodium 136 L (137-145) mmol/L Potassium 4.3 (3.4-5.1) mmol/L Chloride 105 (98-107) mmol/L Carbon Dioxide 22 (22-32) mmol/L BUN 28 H (9-20) mg/dL Creatinine 1.00 (0.66-1.25) mg/dL Estimated GFR > 60.0 (>60) mL/min BUN/Creatinine Ratio 28.0 H (6-22) Glucose 146 H (80-110) mg/dL Calcium 8.8 (8.4-10.2) mg/dL Total Bilirubin 0.8 (0.2-1.3) mg/dL AST 51 (17-59) IU/L ALT 35 (<50) IU/L Alkaline Phosphatase 54 (38-126) U/L Total Creatine Kinase Cancelled CK-MB (CK-2) Cancelled CK-MB (CK-2) Rel Index Cancelled Troponin I 12.200 H* (0.01-0.034) ng/mL NT-Pro-B Natriuret Pep 64381 H (<450) pg/mL Total Protein 6.5 (6.3-8.2) g/dL Albumin 3.1 L (3.5-5.0) g/dL Globulin 3.4 (1.7-4.1) g/dL Albumin/Globulin Ratio 0.9 L (1.0-2.8) Lipase 87 D (23-300) U/L Procalcitonin (<0.5) ng/mL 07/28/19 07/28/19 Range/Units 10:20 12:35 WBC (4.5-11.0) X10^3/uL RBC (4.5-5.9) X10^6/uL Hgb (13.5-17.5) g/dL Hct (41-53) % MCV (80-100) fL MCH (26-34) PG MCHC (30-36) % RDW (11.6-14.8) % Plt Count (150-400) X10^3/uL Neut % (Auto) (50-75) % Lymph % (Auto) (25-40) % [place] % (Auto) (3-14) % Eos % (Auto) (2-4) % Baso % (Auto) (0-2) % Neut # (Auto) (3027-7735) /uL Lymph # (Auto) (0909-7929) /uL [place] # (Auto) (0-900) /uL Eos # (Auto) (0-450) /uL Baso # (Auto) (0-100) /uL PT (10.1-12.7) SECONDS INR (0.9-1.3) APTT (26.4-36.2) SECONDS Sodium (137-145) mmol/L Potassium (3.4-5.1) mmol/L Chloride (98-107) mmol/L Carbon Dioxide (22-32) mmol/L BUN (9-20) mg/dL Creatinine (0.66-1.25) mg/dL Estimated GFR (>60) mL/min BUN/Creatinine Ratio (6-22) Glucose (80-110) mg/dL Calcium (8.4-10.2) mg/dL Total Bilirubin (0.2-1.3) mg/dL AST (17-59) IU/L ALT (<50) IU/L Alkaline Phosphatase (38-126) U/L Total Creatine Kinase 238 H CK-MB (CK-2) 2.45 H CK-MB (CK-2) Rel Index 1.0 L Troponin I 11.800 H* (0.01-0.034) ng/mL NT-Pro-B Natriuret Pep (<450) pg/mL Total Protein (6.3-8.2) g/dL Albumin (3.5-5.0) g/dL Globulin (1.7-4.1) g/dL Albumin/Globulin Ratio (1.0-2.8) Lipase (23-300) U/L Procalcitonin < 0.05 (<0.5) ng/mL Imaging Data Chest x-ray: Radiologist's Impression: [address] [address] XRay Report Signed Patient: Jason Ty FMR#: [id number] : 9Acct:[id number] Age/Sex: 78 / MDate of Service: 07/28/19 Loc: ED Accession Number: [id number] Procedure: XR chest 1V Ordering Provider: Junaid Denson D.O. PROCEDURE: XR CHEST 1V INDICATIONS: Shortness of breath TECHNIQUE: One view of the chest was acquired. COMPARISON: [facility], CR, XR CHEST 1V, 11/08/2017, 10:30. [facility], CR, XR CHEST 2V, 11/28/2017, 12:33. [facility], CR, XR CHEST 1V, 07/21/2019, 14:32. FINDINGS: Surgical changes and devices: A percutaneously placed aortic valve replacement can be seen. Lower right neck clips can be seen. Lungs and pleura: There is mild interstitial prominence. No pleural effusions or pneumothorax. Mediastinum: The cardiac contours are mildly enlarged. The aorta demonstrates calcification and tortuosity. Bones and chest wall: No suspicious bony lesions. Age-appropriate bony degenerative changes are seen. Overlying soft tissues appear unremarkable. IMPRESSION: Mild cardiomegaly and interstitial prominence. Please correlate with patient presentation, physical examination findings, and laboratory values for congestive heart failure. Postoperative and degenerative changes are seen. Dictated by: Damir Murrell M.D. on 07/28/2019 at 9:43 Approved by: Damir Murrell M.D. on 07/28/2019 at 9:45 ECG Data Attestation: I personally reviewed and interpreted this ECG as follows: Prior ECG tracings: available for review Interpretation: EKG upon arrival Sinus rhythm Occasional PVCs Ventricular rate is 77 Left axis deviation Normal QRS Normal QTC ST elevation V2 V3 V4 V5 T-wave inversion 1 in aVL Comparison EKG 07/21/2019 Similar to today's EKG Repeat EKGs at 1010 a.m., 1015 hours, similar to presentation EKG MDM Narrative Medical decision making narrative: Patient with known coronary artery disease. Had a ST-elevation NM with a cardiac catheterization 1 week ago. Arrives today with shortness of breath. Appears that this is not new. He states that he has been having it since he was discharged from the hospital. No fevers. No cough. No chest pain. Has ST elevations on his EKG today but they are unchanged from his prior EKGs. I did discuss the case with Dr. Ward with cardiology. He was able to look up the patient's report. Does not appear that these ST elevations are new. There is some concern for left ventricular aneurysm given the persistent ST elevations. His troponin is also elevated but is down from a peak of 29. A repeat 2 hours later shows that it is not increasing in actually decreasing very small amount. Does have an elevated BNP. Chest x-ray is concerning for fluid overload. I do suspect his symptoms today are related to CHF. He did have a echocardiogram during his last admission which showed an ejection fraction of 30-35%. There was some question as to whether not he has been taking his diuretic since his discharge. I did discuss the case with Dr. castillo who is on-call for the patient's primary doctor. Will admit for continued diuresis and a repeat echocardiogram per Cardiology recommendation. Discussed this with the patient. He expressed understanding and agreement with plan. Discharge Plan Departure Patient Disposition: Admitted As Inpatient Clinical Impression: Congestive heart failure Qualifiers: Heart failure type: unspecified Heart failure chronicity: unspecified Qualified Code(s): I50.9 - Heart failure, unspecified
[2019-07-28] MEDS: FUROSEMIDE 40 MG/4 ML VIAL IV (10:34)
[2019-07-28] MEDS: ASPIRIN 81 MG CHEW TAB 324 MG PO (10:34)
[2019-07-28 10:36] LABS: Add Manual Diff / Slide Review NO; Basophils Absolute Auto 100 /uL (0-100); Basophils Percent Auto 0.9 % (0-2); Eosinophils Absolute Auto 100 /uL (0-450); Eosinophils Percent Auto 1.1 % (2-4); Hematocrit 35.7 % (41-53); Hemoglobin 12.1 g/dL (13.5-17.5); Lymphocytes Absolute Auto 2100 /uL (1100-4500); Lymphocytes Percent Auto 16.9 % (25-40); Mean Corpuscular HGB Conc 33.9 % (30-36); Mean Corpuscular Hemoglobin 29.9 PG (26-34); Mean Corpuscular Volume 88.1 fL (80-100); Monocytes Absolute Auto 1500 /uL (0-900); Monocytes Percent Auto 11.8 % (3-14); Neutrophils Absolute Auto 8600 /uL (1500-7000); Neutrophils Percent Auto 69.3 % (50-75); Platelet Count 283 X10^3/uL (150-400); Red Blood Cell Count 4.05 X10^6/uL (4.5-5.9); Red Cell Distribution Width 13.4 % (11.6-14.8); White Blood Cell Count 12.4 X10^3/uL (4.5-11.0)
[2019-07-28 10:48] LABS: PTT Partial Thromboplastin Tim 37 SECONDS (26.4-36.2)
--- NOTE | 2019-07-28 10:51 | PC.NURSE ---
Pt w/ recent STEMI and stent placement at [facility]. Also has h/o tavr procedure. States skipped doses of spironolactone r/t issue with pharmacy. Missed two days (Tue/) and took Tuesday am. c/o exertional shortness of breath, inability to lay down flat and sleep, persistent cough. Denies fever / chills. Denies chest pain.
[2019-07-28 11:17] LABS: NT-proBNP (BNP-Adult 18+) 12500 pg/mL (<450)
[2019-07-28 11:24] LABS: Alanine Aminotransferase 35 IU/L (<50); Albumin 3.1 g/dL (3.5-5.0); Albumin Globulin Ratio 0.9 (1.0-2.8); Alkaline Phosphatase 54 U/L (38-126); Aspartate Aminotransferase 51 IU/L (17-59); Bilirubin Total 0.8 mg/dL (0.2-1.3); Blood Urea Nitrogen 28 mg/dL (9-20); Calcium 8.8 mg/dL (8.4-10.2); Carbon Dioxide 22 mmol/L (22-32); Chloride 105 mmol/L (98-107); Estimated Glomerular Filt Rate > 60.0 mL/min (>60); Globulin 3.4 g/dL (1.7-4.1); Glucose 146 mg/dL (80-110); HEMOLYSIS 23 (0-50); Lipase 87 U/L (23-300); Potassium 4.3 mmol/L (3.4-5.1); Sodium 136 mmol/L (137-145); Total Protein 6.5 g/dL (6.3-8.2)
[2019-07-28 11:25] LABS: Procalcitonin < 0.05 ng/mL (<0.5)
[2019-07-28 13:12] LABS: Creatine Kinase 238 U/L (55-170)
[2019-07-28 13:22] LABS: Creatine Kinase MB 2.45 ng/mL (<2.37)
--- NOTE | 2019-07-28 17:47 | PM.HP.1 ---
History of Present Illness History of Present Illness Date Patient Seen: 07/28/19 Time Patient Seen: 17:47 Chief complaint: difficulty breathing, dry mouth Narrative: 78-year-old male with history of right carotid endarterectomy in 2012 and coronary artery angioplasty with stenting in 2017, presents from the ED secondary to worsening dyspnea at rest. He is status post a STEMI 8 days ago requiring a complex PCI of an acutely thrombosed and totally occluded LAD utilizing a combination of aspiration thrombectomy, balloon angioplasty, and drug-eluting stent x2. Procedure was complicated by ventricular tachycardia and cardiogenic shock and had long procedure time. Patient was on pressors in the CCU but improved substantially over the first 12 hours. His resultant acute systolic heart failure was treated with diuresis and he was started on a beta [place] for afterload reduction. He did have transient atrial fibrillation that cardiology elected to anticoagulate secondary to his CHADS score as well as the possibility of a coronary artery thrombus. He was discharged on apixaban and dual anti-platelet therapy 4 days ago. At time of discharge, he was also feeling short of breath as well but symptoms have progressed. Denies any current chest pain or pressure. ?It was nothing like it was when I was having a heart attack, that was like a ton of metal on my chest.? Last night, he did not get any rest, was coughing nonproductively and felt like he had to do something. He was discharged with new cardiac medications including spironolactone which he accidentally did not take until yesterday. Denies any peripheral edema. No nausea or vomiting, appetite is normal. No change in bowel or bladder symptoms. No change in mentation. Vital signs in the ED included temperature of 97.7, pulse 79, respirations 26, blood pressure 133/84, O2 saturation 98% on room air. Lab work significant for an elevated troponin of 12.2, trending down upon recheck in the ED to 10.8. Peak troponin during last hospitalization was 28.0. BMP also notably elevated at 12,500. Chest x-ray showed mild cardiomegaly with interstitial prominence. EKG showed normal sinus rhythm with a ventricular rate of 77, left axis deviation and ST elevation in V2-V4. There was also T-wave inversion in 1 and aVL. Patient's folder inspector, Dr. Ward was consulted and he noted that previous EKG on 07/21/2019 showed the same. Serial EKGs in the ED also showed no change. Social Work Instructor recommended inpatient hospitalization for diuresis due to acute CHF and repeat echocardiogram. Echo during last inpatient stay revealed an ejection fraction of 30-35%, the apical cap, anterior wall, mid to distal anterior septum, and mid to distal anterior lateral wall were all severely hypokinetic to akinetic. The inferior wall also had moderate hypokinesis. There was normal right ventricular size and function. Patient's bioprosthetic aortic valve was well seated with a mildly increased gradient. The ascending aorta was also mild to moderately enlarged at 4.5 cm. 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 Lives at home with his partner, Jose R Bazan. Never-smoker. Patient History Medical History Coronary artery disease (Acute) Diabetes (Acute) Hyperlipidemia (Acute) Hypertension (Acute) Family & Social History Social History: household members spouse Prior Living Arrangements House Safety & Behavioral: Feels Safe in Current Yes Environment Been Physically Hurt or No Threatened By a Person Suicidal Ideation Description None Tobacco & Substance use: Smoking Status Never smoker alcohol intake never alcohol intake frequency 0-2 drinks per day Substance Use Type does not use Meds Home Medications and Allergies Home Medications Medication Instructions Recorded Confirmed Type glipizide 2 tab PO QACBREAK 11/08/17 07/28/19 History metformin 500 mg PO BIDAC 11/08/17 07/28/19 History apixaban 5 mg PO BID 07/28/19 07/28/19 History aspirin [Adult Low Dose Aspirin] 81 mg PO DAILY 07/28/19 07/28/19 History brimonidine 1 drp EYE-BOTH BID 07/28/19 07/28/19 History cholecalciferol (vitamin D3) 2,000 unit PO DAILY 07/28/19 07/28/19 History clopidogrel 75 mg PO DAILY 07/28/19 07/28/19 History coenzyme Q10 100 mg PO DAILY 07/28/19 07/28/19 History dorzolamide-timolol (PF) 1 drp OPHTHALMIC (EYE) BID 07/28/19 07/28/19 History insulin glargine [Lantus U-100 13 unit SUBCUT BID 07/28/19 07/28/19 History Insulin] latanoprost 1 drp OPHTHALMIC (EYE) BEDTIME 07/28/19 07/28/19 History lisinopril 2.5 mg PO DAILY 07/28/19 07/28/19 History metoprolol succinate 25 mg PO DAILY 07/28/19 07/28/19 History pantoprazole 20 mg PO DAILY 07/28/19 07/28/19 History rosuvastatin 40 mg PO BEDTIME 07/28/19 07/28/19 History spironolactone 12.5 mg PO DAILY 07/28/19 07/28/19 History Allergies Allergy/AdvReac Type Severity Reaction Status Date / Time sulfamethoxazole Allergy Intermediate Verified 07/28/19 10:24 [From Bactrim] trimethoprim [From Bactrim] Allergy Intermediate Verified 07/28/19 10:24 Review of Systems Review of Systems ROS: Yes All systems reviewed with the patient and are negative except as otherwise documented Exam Vital Signs (past 8 hours): - 07/28/19 09:48 07/28/19 09:56 07/28/19 10:23 Temperature 97.7 F 97.7 F Pulse Rate 79 79 78 Respiratory Rate 26 H 26 H 24 Blood Pressure 133/84 Blood Pressure [Right Arm] 133/84 131/73 Pulse Oximetry 99 99 100 07/28/19 10:50 07/28/19 12:00 07/28/19 12:40 Temperature Pulse Rate 76 77 73 Respiratory Rate 20 18 Blood Pressure Blood Pressure [Right Arm] 118/80 128/89 133/65 Pulse Oximetry 100 99 100 07/28/19 13:20 07/28/19 13:30 07/28/19 14:00 Temperature Pulse Rate 68 74 74 Respiratory Rate 18 26 H 29 H Blood Pressure Blood Pressure [Right Arm] 107/68 119/71 124/66 Pulse Oximetry 97 99 100 07/28/19 14:58 07/28/19 15:23 07/28/19 15:45 Temperature 97.6 F Pulse Rate 80 78 81 Respiratory Rate 30 H 30 H 25 H Blood Pressure 117/76 Blood Pressure [Right Arm] 103/60 112/55 L Pulse Oximetry 99 97 97 Oxygen Delivery Method Room Air Oxygen Flow Rate 0 Narrative Exam Narrative: GENERAL: Alert and oriented, appearing stated age and in no acute distress. HEENT: Head normocephalic/atraumatic. LUNGS: Diminished inspiratory effort with expiratory cough with any amount of deep inhalation. No rhonchi or rales. CV: Normal S1 and S2 with regular rate and rhythm, no audible murmurs, rubs or gallops. ABDOMEN: Soft, non-tender, non-distended, no organomegaly. Positive bowel sounds. EXTREMITIES: No clubbing, cyanosis, or edema. NEURO: Cranial nerves II through XII grossly intact, no focal deficits. PSYCH: Alert and oriented x 3. SKIN: Large contusion, right upper thigh. Objective Labs Result Diagrams: 07/28/19 10:20 07/28/19 10:20 Labs: Laboratory Results - last 24 hr 07/28/19 07/28/19 07/28/19 10:20 10:20 10:20 WBC 12.4 H RBC 4.05 L Hgb 12.1 L Hct 35.7 L MCV 88.1 MCH 29.9 MCHC 33.9 RDW 13.4 Plt Count 283 Neut % (Auto) 69.3 Lymph % (Auto) 16.9 L Jennings % (Auto) 11.8 Eos % (Auto) 1.1 L Baso % (Auto) 0.9 Neut # (Auto) 8600 H Lymph # (Auto) 2100 Jennings # (Auto) 1500 H Eos # (Auto) 100 Baso # (Auto) 100 PT 23.0 H INR 2.0 H APTT 37 H D Sodium 136 L Potassium 4.3 Chloride 105 Carbon Dioxide 22 BUN 28 H Creatinine 1.00 Estimated GFR > 60.0 BUN/Creatinine Ratio 28.0 H Glucose 146 H Calcium 8.8 Total Bilirubin 0.8 AST 51 ALT 35 Alkaline Phosphatase 54 Total Creatine Kinase Cancelled CK-MB (CK-2) Cancelled CK-MB (CK-2) Rel Index Cancelled Troponin I 12.200 H* NT-Pro-B Natriuret Pep 29762 H Total Protein 6.5 Albumin 3.1 L Globulin 3.4 Albumin/Globulin Ratio 0.9 L Lipase 87 D Procalcitonin 07/28/19 07/28/19 10:20 12:35 WBC RBC Hgb Hct MCV MCH MCHC RDW Plt Count Neut % (Auto) Lymph % (Auto) Jennings % (Auto) Eos % (Auto) Baso % (Auto) Neut # (Auto) Lymph # (Auto) Jennings # (Auto) Eos # (Auto) Baso # (Auto) PT INR APTT Sodium Potassium Chloride Carbon Dioxide BUN Creatinine Estimated GFR BUN/Creatinine Ratio Glucose Calcium Total Bilirubin AST ALT Alkaline Phosphatase Total Creatine Kinase 238 H CK-MB (CK-2) 2.45 H CK-MB (CK-2) Rel Index 1.0 L Troponin I 11.800 H* NT-Pro-B Natriuret Pep Total Protein Albumin Globulin Albumin/Globulin Ratio Lipase Procalcitonin < 0.05 Assessment & Plan Assessment & Plan narrative: Assessment 1: Acute systolic heart failure, secondary to recent STEMI, failed outpatient therapy. Plan: IV furosemide 40 mg b.i.d., close monitoring of electrolytes. Will keep potassium greater than 4.0 and Mg greater than 2.0. Strict I/Os, daily weights. Will update echo per cardiology recommendation. Assessment 2: STEMI, recent, status post PCI 8 days ago. Plan: Continue home dual antiplatelet therapy, metoprolol, and spironolactone. Telemetry. Will continue to trend troponin closely. Assessment 3: Coronary artery disease, chronic. Plan: Continue atorvastatin. Assessment 4: Diabetes mellitus type 2 with long-term use of insulin, chronic. Plan: Continue home metformin, glipizide, and Lantus. Assessment 5: Atrial fibrillation, transient during last inpatient hospitalization. Plan: Continue rate control with metoprolol and anticoagulation with Eliquis. Assessment 6: Status post transcatheter aortic valve replacement, chronic, stable. Plan: Will update echo. Assessment 7: Hypertension, chronic. Plan: Continue home lisinopril. Assessment 8: Glaucoma, chronic. Plan: Continue home medications. Assessment 9: Obesity with BMI of 32, chronic. Plan: Dietary consult. Assessment 10: GERD, chronic. Plan: Continue home Protonix. DVT prophylaxis: Anticoagulated as above. Code: Full.
[2019-07-28] MEDS: FUROSEMIDE 100 MG/10 ML VIAL 60 MG IV (19:00)
[2019-07-28] MEDS: ROSUVASTATIN 10 MG TABLET 40 MG PO (21:40)
[2019-07-28] MEDS: APIXABAN 5 MG TABLET PO (21:40)
[2019-07-28] MEDS: INSULIN GLARGINE 100 UNIT/ML 3ML PEN 13 UNIT SUBCUT (21:46)
--- NOTE | 2019-07-28 23:39 | PC.NURSE ---
Admission Note: Pt admitted from ER for SOB. Pt arrives on RA, SPO2 mid 90s. Pt with tachypnea, and SOB with exertion. Pt denies chest pain or pressure. Mild crackles in Bilateral LL. Given 60 mg iv lasix with uop since hospital admission >2 L. Pt alert and oriented, high fall risk, bed alarm on and functioning. Pt instructed to call for assistance with transferring. Pt with call light in reach. Will continue to monitor, notify MD with changes.
[2019-07-29] VITALS (8 sets, daily range): BP systolic 96–129; BP diastolic 55–94; PULSE 60–81; RESP 16–20; TEMP 36.6–38.1; O2SAT 94–98
--- NOTE | 2019-07-29 05:32 | PC.NURSE ---
Patient disgruntled about having a bed alarm. FOREIGN EXCHANGE TRADER explained need, I explained need. Kept saying [facility] doesn't do that. Informed of safety rules, still not happy with bed alarm. Bed alarm remains on.
[2019-07-29 06:00] LABS: Add Manual Diff / Slide Review NO; Basophils Absolute Auto 0 /uL (0-100); Basophils Percent Auto 0.3 % (0-2); Eosinophils Absolute Auto 100 /uL (0-450); Eosinophils Percent Auto 1.2 % (2-4); Hematocrit 36.5 % (41-53); Hemoglobin 12.2 g/dL (13.5-17.5); Lymphocytes Absolute Auto 2400 /uL (1100-4500); Lymphocytes Percent Auto 20.5 % (25-40); Mean Corpuscular HGB Conc 33.5 % (30-36); Mean Corpuscular Hemoglobin 29.4 PG (26-34); Mean Corpuscular Volume 87.9 fL (80-100); Monocytes Absolute Auto 1200 /uL (0-900); Monocytes Percent Auto 10.2 % (3-14); Neutrophils Absolute Auto 7800 /uL (1500-7000); Neutrophils Percent Auto 67.8 % (50-75); Platelet Count 298 X10^3/uL (150-400); Red Blood Cell Count 4.15 X10^6/uL (4.5-5.9); Red Cell Distribution Width 13.6 % (11.6-14.8); White Blood Cell Count 11.5 X10^3/uL (4.5-11.0)
[2019-07-29 06:11] LABS: Magnesium 1.8 mg/dL (1.6-2.3)
[2019-07-29 06:14] LABS: Blood Urea Nitrogen 30 mg/dL (9-20); Calcium 8.6 mg/dL (8.4-10.2); Carbon Dioxide 29 mmol/L (22-32); Chloride 101 mmol/L (98-107); Estimated Glomerular Filt Rate 58.3 mL/min (>60); Glucose 108 mg/dL (80-110); HEMOLYSIS < 15 (0-50); Potassium 3.5 mmol/L (3.4-5.1); Sodium 136 mmol/L (137-145)
[2019-07-29 06:24] LABS: NT-proBNP (BNP-Adult 18+) 13000 pg/mL (<450)
[2019-07-29] MEDS: CLOPIDOGREL 75 MG TABLET PO (08:13)
[2019-07-29] MEDS: APIXABAN 5 MG TABLET PO ×2 (08:13→20:26)
[2019-07-29] MEDS: PANTOPRAZOLE 20 MG TABLET PO (08:13)
[2019-07-29] MEDS: ASPIRIN EC 81 MG TABLET PO (08:13)
[2019-07-29] MEDS: METFORMIN HCL 500 MG TABLET PO ×2 (08:13→16:43)
[2019-07-29] MEDS: CHOLECALCIFEROL (VITAMIN D3) 1,000 UNIT TABLET 2000 UNIT PO (08:13)
[2019-07-29] MEDS: METOPROLOL ER 25 MG TABLET 12.5 MG PO (08:14)
[2019-07-29] MEDS: lisinopriL 5 MG TABLET 2.5 MG PO (08:14)
[2019-07-29] MEDS: SPIRONOLACTONE 25 MG TABLET 12.5 MG PO (08:15)
[2019-07-29] MEDS: glipiZIDE XL 5 MG TAB 20 MG PO (08:16)
--- NOTE | 2019-07-29 08:31 | P.PN_ITS ---
Subjective Subjective Date Patient Seen: 07/29/19 Time Patient Seen: 08:31 Interval history: Did well overnight, denies any chest pain. Shortness of breath improved, but still unable to lie flat. Irritated that he needs to be observed while using the bathroom. They didn't do that at [facility]. Tolerated his dinner well with no nausea or vomiting. Exam Vital Signs (past 8 hours): - 07/29/19 04:04 07/29/19 08:14 Temperature 98.7 F Pulse Rate 73 67 Respiratory Rate 18 Blood Pressure 96/63 123/61 Pulse Oximetry 96 Oxygen Delivery Method Room Air Oxygen Flow Rate 0 Narrative Exam Narrative: GENERAL: Alert and oriented, appearing stated age and in no acute distress. HEENT: Head normocephalic/atraumatic. LUNGS: Diminished inspiratory effort with expiratory cough with any amount of deep inhalation. No rhonchi or rales. CV: Normal S1 and S2 with regular rate and rhythm, no audible murmurs, rubs or gallops. ABDOMEN: Soft, non-tender, non-distended, no organomegaly. Positive bowel sounds. EXTREMITIES: No clubbing, cyanosis, or edema. NEURO: Cranial nerves II through XII grossly intact, no focal deficits. PSYCH: Alert and oriented x 3. SKIN: Large contusion, right upper thigh. Objective Labs Result Diagrams: 07/29/19 05:35 07/29/19 05:35 Labs: Laboratory Results - last 24 hr 07/28/19 07/28/19 07/28/19 10:20 10:20 10:20 WBC 12.4 H RBC 4.05 L Hgb 12.1 L Hct 35.7 L MCV 88.1 MCH 29.9 MCHC 33.9 RDW 13.4 Plt Count 283 Neut % (Auto) 69.3 Lymph % (Auto) 16.9 L [place] % (Auto) 11.8 Eos % (Auto) 1.1 L Baso % (Auto) 0.9 Neut # (Auto) 8600 H Lymph # (Auto) 2100 [place] # (Auto) 1500 H Eos # (Auto) 100 Baso # (Auto) 100 PT 23.0 H INR 2.0 H APTT 37 H D Sodium 136 L Potassium 4.3 Chloride 105 Carbon Dioxide 22 BUN 28 H Creatinine 1.00 Estimated GFR > 60.0 BUN/Creatinine Ratio 28.0 H Glucose 146 H Calcium 8.8 Magnesium Total Bilirubin 0.8 AST 51 ALT 35 Alkaline Phosphatase 54 Total Creatine Kinase Cancelled CK-MB (CK-2) Cancelled CK-MB (CK-2) Rel Index Cancelled Troponin I 12.200 H* NT-Pro-B Natriuret Pep 02163 H Total Protein 6.5 Albumin 3.1 L Globulin 3.4 Albumin/Globulin Ratio 0.9 L Lipase 87 D Procalcitonin 07/28/19 07/28/19 07/29/19 10:20 12:35 05:35 WBC 11.5 H RBC 4.15 L Hgb 12.2 L Hct 36.5 L MCV 87.9 MCH 29.4 MCHC 33.5 RDW 13.6 Plt Count 298 Neut % (Auto) 67.8 Lymph % (Auto) 20.5 L [place] % (Auto) 10.2 Eos % (Auto) 1.2 L Baso % (Auto) 0.3 Neut # (Auto) 7800 H Lymph # (Auto) 2400 [place] # (Auto) 1200 H Eos # (Auto) 100 Baso # (Auto) 0 PT INR APTT Sodium Potassium Chloride Carbon Dioxide BUN Creatinine Estimated GFR BUN/Creatinine Ratio Glucose Calcium Magnesium Total Bilirubin AST ALT Alkaline Phosphatase Total Creatine Kinase 238 H CK-MB (CK-2) 2.45 H CK-MB (CK-2) Rel Index 1.0 L Troponin I 11.800 H* NT-Pro-B Natriuret Pep Total Protein Albumin Globulin Albumin/Globulin Ratio Lipase Procalcitonin < 0.05 07/29/19 07/29/19 05:35 05:35 WBC RBC Hgb Hct MCV MCH MCHC RDW Plt Count Neut % (Auto) Lymph % (Auto) [place] % (Auto) Eos % (Auto) Baso % (Auto) Neut # (Auto) Lymph # (Auto) [place] # (Auto) Eos # (Auto) Baso # (Auto) PT INR APTT Sodium 136 L Potassium 3.5 Chloride 101 Carbon Dioxide 29 BUN 30 H Creatinine 1.20 Estimated GFR 58.3 L BUN/Creatinine Ratio 25.0 H Glucose 108 Calcium 8.6 Magnesium 1.8 Total Bilirubin AST ALT Alkaline Phosphatase Total Creatine Kinase CK-MB (CK-2) CK-MB (CK-2) Rel Index Troponin I 10.300 H* NT-Pro-B Natriuret Pep 92139 H Total Protein Albumin Globulin Albumin/Globulin Ratio Lipase Procalcitonin Assessment & Plan Assessment & Plan narrative: Assessment 1: Acute systolic heart failure, secondary to recent STEMI, present during last admission and currently not resolved with failure of outpatient therapy. BNP extremely high and trending up this morning at 13,000. Potassium and magnesium still normal but trending down, -2350 fluid balance overnight. Troponin is also being closely monitored, still quite elevated 9 days out from his NSTEMI, unclear at this point if there is mixed etiology from his acute CHF versus a secondary cardiac event. Per cardiology, needs inpatient monitoring, telemetry, IV diuresis, and repeat echo. Plan: Will increase IV furosemide to 120 mg b.i.d. x 1, and follow electrolytes, possible need for switch to torsemide if nonresponsive. Will start potassium 40 mg p.o. twice daily and Slow-Mag 64 mg p.o. q.d. to keep potassium greater than 4.0 and Mg greater than 2.0. Strict I/Os, daily weights. Echo pending per cardiology recommendation. Assessment 2: STEMI, recent, status post PCI 8 days ago, troponin still high but trending down. Plan: Continue home dual antiplatelet therapy, metoprolol, and spironolactone. Telemetry. Will continue to trend troponin closely. Assessment 3: Coronary artery disease, chronic. Plan: Continue atorvastatin. Assessment 4: Diabetes mellitus type 2 with long-term use of insulin, chronic. Plan: Continue home metformin, glipizide, and Lantus. Assessment 5: Atrial fibrillation, transient during last inpatient hospitalization, no recurrence. Plan: Continue rate control with metoprolol and anticoagulation with Eliquis. Assessment 6: Status post transcatheter aortic valve replacement, chronic, stable. Plan: Will update echo. Assessment 7: Hypertension, chronic, blood pressure running low with extra diuretic. Plan: Will hold home lisinopril. Assessment 8: Glaucoma, chronic. Plan: Continue home medications. Assessment 9: Obesity with BMI of 32, chronic. Plan: Dietary consult. Assessment 10: GERD, chronic. Plan: Continue home Protonix. DVT prophylaxis: Anticoagulated as above. Code: Full.
--- NOTE | 2019-07-29 09:01 | CM.DANOTE ---
DCP; Case received, EMR reviewed and met with patient. Introduced self and role. Was able to meet with patient to obtain baseline history and health information. DCP assessment completed with information currently available. Patient is an 78 year old male who admitted yesterday afternoon to the care of the hospitalist team. PCP: Dr. Manning. Payer: confirmed: [facility] [employer]. 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 Spoke to patient in his room, he was sitting up in bed, conversive, and gave his history. Patient is alert and oriented, he resides with his life partner, Jose R Bazan, who he has been living with for approximately 10 years and met online. He takes her to dialysis 3 times a week here in town. 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 He is independent. Patient stated he had a severe [place] when he was downstairs working, they put him in a wheel-chair, took him upstairs, and sent him to [facility]. Patient was discharged from [facility] on Tuesday. He was at [facility] for post STEMI. He had stent put in at hospital. Patient had started to notice increased shortness of breath after leaving hospital. Patient was to be on a pill for diuresis, and stated, he missed a couple of doses. Patient holds diagnosis of acute systolic HF. Patient does also have P.T. orders, but no DME at baseline. P: DCP to continue to follow closely. Plan is for home when he is medically stable. Aniya Ramirez RN/Trace Clerk
--- NOTE | 2019-07-29 09:54 | OT.IP.EVAL ---
Past Medical History (Last Reviewed 07/28/19 @ 11:15 by Junaid Denson DO) Coronary artery disease (Acute) Diabetes (Acute) Hyperlipidemia (Acute) Hypertension (Acute) Occupational Therapy Inpatient Evaluation/Re-Eval M1 PT/OT-IP Prior Functional Status Start: 07/29/19 09:19 Freq: NEEDED Status: Active Protocol: Document 07/29/19 14:04 CGR (Rec: 07/29/19 14:15 CGR [email or web address]) Medical Review Prior Functional Status Medical History Reviewed Yes Communication WNL Mobility and Gait Prior to HI 1 week ago, pt had been independent with all functional mobility. Since his hospitalization, he has been using a SPC nearly 100% of the time to increase his confidence related to reported unsteadiness. Activities of Daily Living and IADL's Independent Social History Household Members spouse Living Arrangements House Number of Floors (Floors) One Floor Number of Stairs To Enter/Railing? ramped entry Home Environment Standard Height Toilet,Walk in Shower,Tub/Shower,Ramp Home Equipment Four Wheel Walker,Straight Cane,Shower Seat with Backrest ,Hand Held Shower,Poultry Sexer,Grab Bars Near Toilet,Grab Bars In Shower Employment Status Retired Additional Social History Comment Pt lives with his spouse. 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 He has a son who lives nearby and another who he states is a local intermodal truck driver on the formerly [facility] . M2 OT-IP Current Condition Start: 07/29/19 14:04 Freq: Status: Active Protocol: Document 07/29/19 14:04 CGR (Rec: 07/29/19 14:15 CGR [email or web address]) Occupational Therapy Current Condition Current Condition Evaluation Date 07/29/19 Treatment Diagnosis Dyspena @ rest, acute systolic heart failure Diagnosis Onset Date 07/28/19 M3 OT- IP Subjective and Pain Start: 07/29/19 14:04 Freq: Status: Active Protocol: Document 07/29/19 14:04 CGR (Rec: 07/29/19 14:15 CGR [email or web address]) OT- Subjective Occupational Therapy Visit Type Type Initial Evaluation Visit Start Time 09:10 Visit Stop Time 09:54 Total Visit Minutes 44 OT Pain Assessment Pain When Pain Assessed At Rest Pain Present Pain Present Denied Pain M4 OT- IP ADL's Start: 07/29/19 14:04 Freq: Status: Active Protocol: Document 07/29/19 14:04 CGR (Rec: 07/29/19 14:15 CGR [email or web address]) OT [id number] Comments OT Self-Feeding Comments Not assessed in this session. OT ADL-Grooming General Evaluation Grooming Ability Standby Assistance Areas Needing Assistance Combing/Brushing Hair,Face Washing Comments OT Grooming Comments Standing at sink, pt has LOB but recovered without physical assist. OT ADL-Oral Care General Eval Oral Care Ability Standby Assistance Areas of Assistance Brushing Teeth Comments Oral Care Comments standing at sink OT ADL-Dressing General Eval Lower Body Dressing Ability Standby Assistance Areas Needing Assistance Socks Comments OT Dressing Comments Pt able to perform socks but very SOB with activity. Pt educated on sock aid and provided with a sock aid for home use. Pt performed with IND using sock aid. OT ADL-Toileting General Evaluation Toileting Ability Standby Assistance Devices Toileting Assistive Devices Grab Bars OT ADL-Bathing Comments OT Bathing Comments Not performed in this session. M5 OT- IP IADL's Start: 07/29/19 14:04 Freq: Status: Active Protocol: Document 07/29/19 14:04 CGR (Rec: 07/29/19 14:15 CGR [email or web address]) OT-Instrumental Activities of Daily Living Deficits IADL Deficits Identified No Deficits Home Safety Awareness Awareness of Need for Assistance at Home Good Awareness Ability to Problem Solve Emergency Able to Problem Solve Situations Medication Management Medication Management No Deficits Identified Money Management Money Management No Deficits Identified Meal Preparation Meal Preparation Caregiver Provides Assist Senior Advisor Senior Advisor Caregiver Provides Assist Driving Driving Comments 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 M6 OT- IP Functional Cognition Start: 07/29/19 14:04 Freq: Status: Active Protocol: Document 07/29/19 14:04 CGR (Rec: 07/29/19 14:15 CGR [email or web address]) Cognitive Factors Limiting Selfcare Function Cognitive Ability Level of Alertness Alert Patient Orientation Name,Age,Birthday,Month,Date, Year,Day of Week,Place, Situation Attention Span Ability Capable of Focused Attention, Capable of Sustained Attention Ability to Follow Commands Able to Follow Multi-Step Commands Memory Description No Deficits Noted Safety Awareness No Deficits Noted Problem Solving Ability No deficits Noted Executive Function Ability No Deficits Noted Abstract Thinking Ability No Deficits Noted OT- Vision and Hearing OT- Hearing Assessment OT- Hearing Assessment Hearing Impaired OT- Vision Assessment Visual Acuity Glasses All The Time Visual Attentiveness WFL Occular Pursuits WFL Visual Convergence WFL Visual Morales WFL M7 OT- IP Mobility and Balance Start: 07/29/19 14:04 Freq: Status: Active Protocol: Document 07/29/19 14:04 CGR (Rec: 07/29/19 14:15 CGR [email or web address]) OT- Bed Mobility Assessment Rolling Type of Rolling Roll to Right Level of Assistance Contact Guard Assistance Supine to Sit Supine to Sit Assist Contact Guard Assistance Scooting Scooting to Edge of Bed Contact Guard Assistance OT-Transfer Assessment Sit to and From Stand Sit to and from Stand Contact Guard Assistance Transfers Transfer Ability Contact Guard Assistance Technique Transfer Destination Bed,Chair,Toilet Transfer Technique Stand Step Pivot Devices Transfer Assistive Devices Gait Belt,Front Wheeled Walker OT- Gait Assessment Gait Gait Assistance Required: Contact Guard Assist Assistive Devices Assistive Device Gait Belt,Front Wheeled Walker Comments Gait Ability Comments MObility around the room. OT- Balance Assessment Sitting Balance and Reactions Static Sitting Balance Ability Normal Dynamic Sitting Balance Ability Good M8 OT- IP Objective Assessments Start: 07/29/19 14:04 Freq: Status: Active Protocol: Document 07/29/19 14:04 CGR (Rec: 07/29/19 14:15 CGR [email or web address]) OT Gross Range of Motion Upper Extremity Range of Motion Assessment Within Functional Limits OT Strength Upper Extremity Strength Assessment Within Functional Limits Comments Strength Comments Grossly 4+/5 OT- Coordination Assessment Upper Extremity Finger to Nose Test Within Functional Limits Finger Tapping Test Within Functional Limits OT-Muscle Tone Assessment Muscle Tone WNL Yes OT Sensation Assessment Edema Edema Absent M9 OT- IP Assessment and Plan Start: 07/29/19 14:04 Freq: Status: Active Protocol: Document 07/29/19 14:04 CGR (Rec: 07/29/19 14:15 CGR [email or web address]) OT Summary Assessment and Plan Potential Rehabilitation Potential Good Analytic Complexity at Evaluation Low Summary OT Impairments Functional Mobility,Dressing, Bathing,Shower Transfers, Activity Tolerance Progress Towards Goals Progressing Toward Goals,Slow Progress due to Activity Tolerance Assessment Summary PT presents as a low complexity evaluation admitted with dyspena at rest and acute systolic heart failure. Pt with recent STEMI ~1 week ago and underwent complex angioplasty and thrombectomy. Pt started using a SPC in the last week and had a LOB during this session. Pt will benefit from OT services to address energy conservation, endurance, and ADLs. Pt will likely be ok for discharge home when medically stable. Goals Grooming Goal Independent Dressing Goal Independent,Sock Aid Bathing Goal Independent Shower Transfer Goal Independent Days to Meet Goals 3 Frequency of Treatment Frequency Of Treatment Once a Day Treatment Plan OT Treatment Plan ADL Training,Functional Mobility,Patient/Family Education,Discharge Planning Discharge Recommendations OT Discharge Recommendations Home Transportation Needs at Discharge Private Vehicle
[2019-07-29] MEDS: MAGNESIUM CHLORIDE 64 MG TABLET PO (10:35)
[2019-07-29] MEDS: FUROSEMIDE 120 MG in SODIUM CHLORIDE 0.9% 50 ML 124 ML IV (10:35)
--- NOTE | 2019-07-29 11:22 | PT.IIE ---
Medical History (Last Reviewed 07/28/19 @ 11:15 by Junaid Denson DO) Coronary artery disease (Acute) Diabetes (Acute) Hyperlipidemia (Acute) Hypertension (Acute) Physical Therapy Inpatient Evaluation/Re-Eval M1 PT/OT-IP Prior Functional Status Start: 07/29/19 09:19 Freq: NEEDED Status: Active Protocol: Document 07/29/19 11:21 AW (Rec: 07/29/19 11:53 AW [id number]) Medical Review Prior Functional Status Medical History Reviewed Yes Communication WNL Mobility and Gait Prior to [place] 1 week ago, pt had been independent with all functional mobility. Since his hospitalization, he has been using a SPC nearly 100% of the time to increase his confidence related to reported unsteadiness. Activities of Daily Living and IADL's Independent Social History Household Members spouse Living Arrangements House Number of Floors (Floors) One Floor Number of Stairs To Enter/Railing? ramped entry Home Environment Standard Height Toilet,Walk in Shower,Tub/Shower,Ramp Home Equipment Four Wheel Walker,Straight Cane,Shower Seat with Backrest ,Hand Held Shower,Tavern Operator,Grab Bars Near Toilet,Grab Bars In Shower Employment Status Retired Additional Social History Comment Pt lives with his spouse. 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 He has a son who lives nearby and another who he states is a truck loader and unloader on the [employer] . M2 PT-IP Current Condition Start: 07/29/19 09:19 Freq: NEEDED Status: Active Protocol: Document 07/29/19 11:21 AW (Rec: 07/29/19 11:53 AW [id number]) Physical Therapy Current Condition Current Condition Evaluation Date 07/29/19 Treatment Diagnosis acute systolic HF secondary to STEMI; impaired mobility Onset Date 07/28/2019 Weight Bearing Status Weight Bearing Status Full Weight Bearing M3 PT-IP Subjective Start: 07/29/19 09:19 Freq: NEEDED Status: Active Protocol: Document 07/29/19 11:21 AW (Rec: 07/29/19 11:53 AW [id number]) Subjective Physical Therapy Visit Type Type Initial Evaluation Visit Start Time 10:23 Visit Stop Time 10:45 Total Visit Minutes 22 Number of ASSOCIATE CREATIVE DIRECTOR Visits 0 Physical Therapy Visit Comments Patient Comments I really can do everything I need to do. Patient Goals To return home with his spouse Therapy Pain Assessment Pain When Pain Assessed During Mobility Pain Present Pain Present Denied Pain M4 PT-IP Mobility and Gait Start: 07/29/19 09:19 Freq: NEEDED Status: Active Protocol: Document 07/29/19 11:21 AW (Rec: 07/29/19 11:53 AW [id number]) PT-Transfer Assessment Sit to and From Stand Sit to and from Stand Standby Assistance,1 Person Assistance,Use of Upper Extremities Equipment Transfer Assistive Device Gait Belt,Straight Cane Orthotic/Prosthetic Devices or Brace: No Transfers Transfer Destination Chair Transfer Technique pt ambulated with SPC Transfer Ability Level of Assist Standby Assistance Comments Mobility Comments Pt sitting up in chair upon therapist arrival. He completed sit to stand using BUE for push off from the chair appropriately and stood with SPC. Upon return to the room after gait assessment, pt requested to return to the chair, refusing bed mobility assessment. He transferred to the chair SBA. Sitting prior to activity: BP 130/74, HR 76, SpO2 98% on room air After activity: BP 129/94, HR 102, SpO2 97% on room air Gait Assessment Gait Gait Assistance Required: Standby Assistance Distance (Feet) 220 Able to Maintain Weight Bearing Status Yes During Gait Assistive Devices Assistive Device Gait Belt,Straight Cane Orthotic/Prosthetic Devices or Brace: No Gait Deviations General Gait Pattern Decreased Stride Length, Decreased Feet Clearance Factors Limiting Gait Function Factors Limiting Gait Function Decreased Activity Tolerance, Decreased Strength,Poor Balance,Poor Safety Awareness Comments Gait Comments Pt ambulated ~[address] with SPC SBA. Pt had 2 (+) LOB from which he recovered without therapist assist - once during normal gait and once during testing with head turns. He admits to unsteadiness and feels more secure with his SPC. Pt reported shortness of breath at ~100 feet but SpO2 remained high 90's and no rest break was required. Modified DGI score of 7/12 (single points deducted for level surface, change in gait speed, vertical head turns; 2 points deducted for LOB with horizontal head turns). Stair Climbing Assessment Comments Stair Climbing Comments Not assessed. Pt has ramped entry. PT-Balance Assessment Sitting Balance and Reactions Static Sitting Balance Ability Good Dynamic Sitting Balance Ability Good Standing Balance and Reactions Static Standing Balance Ability Good Dynamic Standing Balance Ability Fair Functional Assessments Functional Tests Dynamic Gait Index 4-item/modified DGI: 7 M5 PT-IP Objective Assessments Start: 07/29/19 09:19 Freq: NEEDED Status: Active Protocol: Document 07/29/19 11:21 AW (Rec: 07/29/19 11:53 AW [id number]) Orientation Orientation/Cognition Level of Alertness Alert Orientation Name,Day of Week,Place, Situation Language Function Ability No Deficits Noted Safety Awareness Decreased Safety Awareness Memory Description No Deficits Noted Gross Range of Motion Lower Extremity ROM Assessment Within Functional Limits Strength Lower Extremity Strength Assessment Bilaterally Impaired Hip 4-/5 Knee 4/5 Ankle 4/5 Comments Strength Comments Pt with reduced B LE strength globally. Coordination Assessment Gross Coordination Gross Coordination WNL Sensation Assessment Sensation Gross Sensation WNL M6 PT-IP Treatment Start: 07/29/19 09:19 Freq: NEEDED Status: Active Protocol: Document 07/29/19 11:21 AW (Rec: 07/29/19 11:53 AW [id number]) Physical Therapy Treatment Education Education Provided Precautions,Safety Other Treatments Other Treatment Performed Provided education on role of PT, plan of care, recommendations for continued therapy. M7 PT-IP Assessment and Plan Start: 07/29/19 09:19 Freq: NEEDED Status: Active Protocol: Document 07/29/19 11:21 AW (Rec: 07/29/19 11:53 AW [id number]) PT Summary Assessment and Plan Potential Rehabilitation Potential Good Status of Condition at Evaluation Evolving Summary Impairments Strength,Balance,Transfers, Gait,Activity Tolerance Assessment Summary Jason is an 78yo man admitted with acute systolic heart failure secondary to STEMI ~9 days ago. He was treated at [facility] and discharged on Tuesday before returning to ED with worsening shortness of breath and possible orthopnea. At baseline, pt reports he had been fully independent with all functional mobility and ADL's prior to cardiac event. He states he has been using a SPC nearly 100% of the time since discharge from [facility] due to unsteady gait. On evaluation, Jason required SBA for transfers and ambulation with SPC. He experienced 2 LOB from which he was able to recover without therapist assist. He scored 7/12 on modified DGI, placing him in a high risk category for falls. PT recommends discharge to home with family assist once medically cleared. He would also benefit from cardiac rehab and outpatient physical therapy to address endurance and balance concerns. Goals Bed Mobility Goal Independent Transfer Goal Independent,Cane Gait Goal Independent,Cane Gait Distance 300 Other Goals - up/down one platform step with SPC for increased independence in the community Days to Meet Goals 5 Frequency of Treatment Frequency Of Treatment Once a Day Treatment Plan Physical Therapy Treatment Plan Bed Mobility Training,Transfer Training,Gait Training, Therapeutic Exercise,Balance Retraining,Discharge Planning, Hot or Cold Pack,Neuromuscular Re-ed Other Recommendations and Next Treatment assess bed mobility; assess Focus safety on platorm step/curb with SPC; ther ex for BLE strengthening Recommendations To Nursing Amount of Assist Needed Standby Assistance Discharge Recommendations PT Discharge Recommendations Home with Assistance, Outpatient PT Other Discharge Recommendations OP PT and cardiac rehab Transportation Needs at Discharge Private Vehicle
--- NOTE | 2019-07-29 15:11 | PC.NURSE ---
Resp/cardiac: aware of lab values. Recieved IV furosemide and has had 1900mls out so far. Bp 100/55 p 70-78, denies any dizziness when up. So far has tolerated same. Pt expressing concerns about having to have someone with him when he is moving, getting to the bathroom. Reviewed hospital fall protocol. Reviewed his recent hospitalization at [facility] and now here, he is sl unsteady on feet. Did see PT/OT and had a safety check with them. They made a plan he has assist to and from the bathroom and that he could have privacy while on the toilet. He has been complying with same. Sat in chair for a couple of hours. Cont w/poc.
[2019-07-29] MEDS: POTASSIUM CHLORIDE 20 MEQ TAB 40 MEQ PO (16:43)
[2019-07-29] MEDS: ROSUVASTATIN 10 MG TABLET 40 MG PO (20:25)
[2019-07-29] MEDS: INSULIN GLARGINE 100 UNIT/ML 3ML PEN 13 UNIT SUBCUT (20:26)
--- NOTE | 2019-07-29 22:23 | PC.NURSE ---
Evening Shift Note- Patient alert and oriented and able to make needs known to staff. Patient pleasent, calm, and cooperative with care. Patient calls appropriatly for assistance. Patient requires SBA, steady gait noted. No complaints of pain or discomfort. No complaints of N/V. Lung sounds diminished throughout with crackles. Safethy measures in place. call rosa and phone within reach. Will continue to monitor.
[2019-07-30] VITALS (7 sets, daily range): BP systolic 107–126; BP diastolic 64–88; PULSE 75–85; RESP 16–18; TEMP 36.5–37.2; O2SAT 95–97
[2019-07-30 05:47] LABS: Add Manual Diff / Slide Review NO; Basophils Absolute Auto 100 /uL (0-100); Basophils Percent Auto 0.7 % (0-2); Eosinophils Absolute Auto 200 /uL (0-450); Eosinophils Percent Auto 1.3 % (2-4); Hematocrit 37.7 % (41-53); Hemoglobin 12.6 g/dL (13.5-17.5); Lymphocytes Absolute Auto 2600 /uL (1100-4500); Lymphocytes Percent Auto 21.6 % (25-40); Mean Corpuscular HGB Conc 33.5 % (30-36); Mean Corpuscular Hemoglobin 29.3 PG (26-34); Mean Corpuscular Volume 87.5 fL (80-100); Monocytes Absolute Auto 1400 /uL (0-900); Monocytes Percent Auto 11.7 % (3-14); Neutrophils Absolute Auto 7900 /uL (1500-7000); Neutrophils Percent Auto 64.7 % (50-75); Platelet Count 312 X10^3/uL (150-400); Red Blood Cell Count 4.31 X10^6/uL (4.5-5.9); Red Cell Distribution Width 13.3 % (11.6-14.8); White Blood Cell Count 12.2 X10^3/uL (4.5-11.0)
[2019-07-30 05:53] LABS: Magnesium 1.8 mg/dL (1.6-2.3)
[2019-07-30 06:06] LABS: NT-proBNP (BNP-Adult 18+) 9730 pg/mL (<450)
[2019-07-30] MEDS: glipiZIDE XL 5 MG TAB 20 MG PO (07:29)
[2019-07-30] MEDS: METFORMIN HCL 500 MG TABLET PO ×2 (07:29→17:20)
--- NOTE | 2019-07-30 08:24 | PM.PN.1 ---
Subjective Subjective Date Patient Seen: 07/30/19 Time Patient Seen: 08:24 Interval history: Patient feeling better this morning. Still pretty significantly short of breath when he goes to the bathroom. No chest pain. No other progressive changes. Output has been good. No new changes. Able to lie flat a little better. Cough seems to be improving but not gone. Echo shows 20-25% EF but no other changes. Apparently this is unchanged from previous echo done at last admission. Exam Vital Signs (past 8 hours): - 07/30/19 05:00 07/30/19 08:00 Temperature 97.7 F 98.3 F Pulse Rate 79 79 Respiratory Rate 16 18 Blood Pressure 117/75 111/78 Pulse Oximetry 95 95 Oxygen Delivery Method Room Air Oxygen Flow Rate 0 Narrative Exam Narrative: Alert smiling male in no acute distress HEENT exam unremarkable. Neck shows JVD to angle of the jaw. Lungs basilar crackles. Otherwise unremarkable. Heart regular rate and rhythm with a 2/6 systolic murmur right sternal border. Abdomen benign. Extremities unremarkable. Neurologic exam is normal. Psychologically smiling and interactive. Objective Labs Result Diagrams: 07/30/19 05:30 07/29/19 05:35 Labs: Laboratory Results - last 24 hr 07/30/19 07/30/19 07/30/19 05:30 05:30 05:30 WBC 12.2 H RBC 4.31 L Hgb 12.6 L Hct 37.7 L MCV 87.5 MCH 29.3 MCHC 33.5 RDW 13.3 Plt Count 312 Neut % (Auto) 64.7 Lymph % (Auto) 21.6 L [place] % (Auto) 11.7 Eos % (Auto) 1.3 L Baso % (Auto) 0.7 Neut # (Auto) 7900 H Lymph # (Auto) 2600 [place] # (Auto) 1400 H Eos # (Auto) 200 Baso # (Auto) 100 Magnesium 1.8 Troponin I 8.770 H* NT-Pro-B Natriuret Pep 9730 H Assessment & Plan Assessment & Plan narrative: Acute systolic heart failure. Left ventricular. Probable secondary to recent SC. Apparently not a lot changes sores echo goes. Output has been good. BMP is down. Question is whether not he needs NORA-inhibitor. Pressures are still relatively low. Will discuss with retort condenser attendant again today. Hopefully they will see him here and set up plan. Recent STEMI. Troponin trending downward. On metoprolol on anti-platelet therapy. Will follow. Type 2 diabetes poor control continue current treatment and follow. Patient is on process of seeing choir accompanist. History of atrial fibrillation. Not active at this time. Will follow. Status post aortic valve replacement stable. Hypertension. Not an issue at this time. But may need to start lisinopril back secondary to his congestive heart failure Glaucoma. Stable. Mild obesity. No other change. History of GERD continue Protonix DVT prophylaxis on anticoagulation. Code status full. Disposition probable be heard 24 more hours were discussed with retort condenser attendant and follow. Time Spent With Patient Time with patient: Greater than 35 minutes
[2019-07-30] MEDS: MAGNESIUM CHLORIDE 64 MG TABLET PO (09:06)
[2019-07-30] MEDS: SODIUM CHLORIDE 0.9% FLUSH 10 ML IV ×2 (09:07→21:42)
[2019-07-30] MEDS: POTASSIUM CHLORIDE 20 MEQ TAB 40 MEQ PO ×2 (09:07→17:20)
[2019-07-30] MEDS: ASPIRIN EC 81 MG TABLET PO (09:08)
[2019-07-30] MEDS: CHOLECALCIFEROL (VITAMIN D3) 1,000 UNIT TABLET 2000 UNIT PO (09:08)
[2019-07-30] MEDS: APIXABAN 5 MG TABLET PO ×2 (09:08→21:42)
[2019-07-30] MEDS: PANTOPRAZOLE 20 MG TABLET PO (09:08)
[2019-07-30] MEDS: CLOPIDOGREL 75 MG TABLET PO (09:08)
[2019-07-30] MEDS: METOPROLOL ER 25 MG TABLET 12.5 MG PO (09:08)
[2019-07-30] MEDS: SPIRONOLACTONE 25 MG TABLET 12.5 MG PO (09:08)
[2019-07-30] MEDS: FUROSEMIDE 100 MG/10 ML VIAL 60 MG IV (09:12)
[2019-07-30 10:32] LABS: Hematocrit 37.7 % (41-53); Hemoglobin 12.9 g/dL (13.5-17.5)
[2019-07-30] MEDS: HEPARIN DRIP 25,000 UNIT/500 ML IV.SOLN 22.632 UNIT IV (10:34)
[2019-07-30] MEDS: HEPARIN 5,000 UNIT/ML VIAL 5000 UNIT IV (10:34)
[2019-07-30 10:39] LABS: INR 1.6 (0.9-1.3); Prothrombin Time 17.9 SECONDS (10.1-12.7)
[2019-07-30 10:40] LABS: Platelet Count 316 X10^3/uL (150-400)
[2019-07-30 10:42] LABS: PTT Partial Thromboplastin Tim 37 SECONDS (26.4-36.2)
[2019-07-30 10:44] LABS: Creatine Kinase 188 U/L (55-170)
--- NOTE | 2019-07-30 10:58 | PC.NURSE ---
Day shift: Pt made aware to use call light and to wait for staff to help hime when OOB due to being given heparin drip. Informed that if he falls he could bleed out and possibly be fatal. He agrees to use call light at this time. Will continue teaching this as needed. Call light in reach and bed alarm is on. Heparin drip per protocol. Set up with Larisa REEVES and Galen REEVES as well as this curriculum writer.
--- NOTE | 2019-07-30 11:08 | PT.IPTN ---
Physical Therapy Treatment Note M2 PT-IP Current Condition Start: 07/29/19 09:19 Freq: NEEDED Status: Active Protocol: Document 07/29/19 11:21 AW (Rec: 07/29/19 11:53 AW [email or web address]) Physical Therapy Current Condition Current Condition Evaluation Date 07/29/19 Treatment Diagnosis acute systolic HF secondary to STEMI; impaired mobility Onset Date 07/28/2019 Weight Bearing Status Weight Bearing Status Full Weight Bearing M3 PT-IP Subjective Start: 07/29/19 09:19 Freq: NEEDED Status: Active Protocol: Document 07/30/19 10:56 AW (Rec: 07/30/19 11:07 AW [email or web address]) Subjective Physical Therapy Visit Type Type Treatment Note Visit Start Time 10:40 Visit Stop Time 10:55 Total Visit Minutes 15 Notes Pt on heparin drip. Increased fall precautions. Number of SENIOR SOFTWARE QUALITY ENGINEER Visits 0 Physical Therapy Visit Comments Patient Comments Pt willing to work with therapy M4 PT-IP Mobility and Gait Start: 07/29/19 09:19 Freq: NEEDED Status: Active Protocol: Document 07/30/19 10:56 AW (Rec: 07/30/19 11:07 AW [email or web address]) PT-Bed Mobility Assessment Supine to Sit Supine to Sit Standby Assistance Sit to Supine Sit to Supine Independent Scooting Scooting to Edge of Bed Independent Scooting Up and Down in Bed Independent PT-Transfer Assessment Sit to and From Stand Sit to and from Stand Contact Guard Assistance Equipment Transfer Assistive Device Gait Belt,Front Wheeled Walker Orthotic/Prosthetic Devices or Brace: No Transfers Transfer Destination Bed,Toilet Transfer Technique Stand Step Pivot Transfer Ability Level of Assist Contact Guard Assistance Comments Mobility Comments Pt sitting up in bed upon therapist arrival. He completed supine to sit and sit to stand SBA. Upon return to the room after gait training, pt requested to use the toilet where he transferred SBA. He than ambulated back to the bed and completed sit to supine independent. Pt was repositioned in the bed with call light and table within reach, bed alarm armed for safety Gait Assessment Gait Gait Assistance Required: Contact Guard Assist Distance (Feet) 220 Able to Maintain Weight Bearing Status Yes During Gait Assistive Devices Assistive Device Gait Belt,Front Wheeled Walker Orthotic/Prosthetic Devices or Brace: No Gait Deviations General Gait Pattern Decreased Stride Length, Decreased Feet Clearance Factors Limiting Gait Function Factors Limiting Gait Function Decreased Activity Tolerance, Decreased Strength,Poor Balance,Poor Safety Awareness Comments Gait Comments Pt ambulated ~220 feet in the halls with SPC SBA. No LOB this date, improved steadiness on feet. Stair Climbing Assessment Evaluation Level of Assist On Stairs Standby Assistance Devices Stair Climbing Assistive Devices Straight Cane,Right Railing Technique/Endurance Stair Climbing Direction Ascend and Descend Stair Climbing Technique Step Over Step,Step to Step Number of Steps Climbed 3 Stair Climbing Set # Repetitions (reps) 2 Comments Stair Climbing Comments Pt ascended and descended 3 steps using R rail ascending SBA and step over step pattern . He also navigated up and over the platform step x 4 to practice with SPC. After brief demonstration and occ verbal cues, pt was able to sequence curb navigation with SPC SBA. M5 PT-IP Objective Assessments Start: 07/29/19 09:19 Freq: NEEDED Status: Active Protocol: Document 07/29/19 11:21 AW (Rec: 07/29/19 11:53 AW [id number]) Orientation Orientation/Cognition Level of Alertness Alert Orientation Name,Day of Week,Place, Situation Language Function Ability No Deficits Noted Safety Awareness Decreased Safety Awareness Memory Description No Deficits Noted Gross Range of Motion Lower Extremity ROM Assessment Within Functional Limits Strength Lower Extremity Strength Assessment Bilaterally Impaired Hip 4-/5 Knee 4/5 Ankle 4/5 Comments Strength Comments Pt with reduced B LE strength globally. Coordination Assessment Gross Coordination Gross Coordination WNL Sensation Assessment Sensation Gross Sensation WNL M6 PT-IP Treatment Start: 07/29/19 09:19 Freq: NEEDED Status: Active Protocol: Document 07/30/19 10:56 AW (Rec: 07/30/19 11:07 AW [email or web address]) Physical Therapy Treatment Education Education Provided Safety M7 PT-IP Assessment and Plan Start: 07/29/19 09:19 Freq: NEEDED Status: Active Protocol: Document 07/30/19 10:56 AW (Rec: 07/30/19 11:07 AW [email or web address]) PT Summary Assessment and Plan Summary Impairments Strength,Balance,Transfers, Gait,Activity Tolerance Progress Towards Goals Progressing Toward Goals Assessment Summary Jason progressed toward goals this session, requiring no more than SBA and improved steadiness during ambulation with SPC. He also managed stairs with railing and alternately with SPC SBA. No overt signs of shortness of breath during activity today. Goals Bed Mobility Goal Independent Transfer Goal Independent,Cane Gait Goal Independent,Cane Gait Distance 300 Other Goals - up/down one platform step with SPC for increased independence in the community Days to Meet Goals 3 Frequency of Treatment Frequency Of Treatment Once a Day Treatment Plan Physical Therapy Treatment Plan Bed Mobility Training,Transfer Training,Gait Training, Therapeutic Exercise,Balance Retraining,Discharge Planning, Hot or Cold Pack,Neuromuscular Re-ed Other Recommendations and Next Treatment ther ex for BLE strength; Focus progress gait distance with attention to RPE; repeat mDGI Recommendations To Nursing Amount of Assist Needed Standby Assistance Discharge Recommendations PT Discharge Recommendations Home with Assistance, Outpatient PT Other Discharge Recommendations OP PT and cardiac rehab Transportation Needs at Discharge Private Vehicle
--- NOTE | 2019-07-30 13:09 | OT.IPNOTE ---
Attempted to see pt for OT treatment. Pt states too tired, would rather rest, and refused at this time. Therefore check on pt tomorrow.
--- NOTE | 2019-07-30 13:11 | DIET.PN ---
Dietary Progress Note Assessment: Mr. Ty is an 78-year-old male with history of right carotid endarterectomy and coronary artery angioplasty with stenting, who presents from the ED secondary to worsening dyspnea at rest. He was admitted x 1 week ago with similar complaints. I am currently seeing Mr Ty for outpatient nutrition therapy. He has been complaining of weakness and dizziness similar to hypoglycemia for several weeks. He reports no change in appetite. HT: 173.99cm WT: 94.3 kg BMI: 31.2 Labs: Na: 136 BNP: 57466, 9730 Trop: 11.8, 10.3, 8.7 MNA: 12 Jakob: 20 Nutrition Diagnosis: Excessive fat intake r/t food- and nutrition-related knowledge deficit concerning appropriate amount of dietary fat aeb frequent or large portions of high fat foods, verbalizes not ready for lifestyle change. Interventions: 1. Discussed heart healthy nutrition therapy. Recommended reducing sodium and fat intake. 2. Discussed importance of light, moderate exercise for maintaining heart health and controlling blood sugar. Diet Order: HH, CCD EER: 2100 juana @ 30 juana/kg IBW ; 90-100 g Pro @ 1.3-1.5g/kg IBW Monitoring/Evaluations: PO intake, labs, weight
--- NOTE | 2019-07-30 16:01 | P.CONS_ITS ---
History of Present Illness <Cabrera HdzANA - Last Filed: 07/30/19 17:32> Consult details Date Patient Seen: 07/30/19 Time Patient Seen: 16:02 Chief complaint: difficulty breathing, dry mouth Reason for consult: Abnormal EKG Requesting provider: Ian Manning Narrative: Jason is a delightful 78-year-old man with a history of two-vessel CAD s/p PTCA and PCI, TAVR, HTN, DM, HLD who presented to the emergency department following 2 days of progressively worse shortness of breath 4 days a fter discharge from [facility] for acute anteroseptal ST elevation NH. On 07/21/2019 the patient presented to hospital emergency department reporting crushing chest pressure and associated diaphoresis. He was found to have ST-elevation in V1 through V4 and significantly elevated CK, CK-MB and troponin. On 07/22/2019, CK-MB was 272.1, CK-MB index 4.1, total CK 6584 and troponin T 29.010. He was transferred to [facility] and taken to the oil laboratory analyst by Dr. Polanco for emergent selective coronary angiography. Coronary angiography showed the LAD was acutely thrombosed and totally occluded in the proximal segment. He had high-grade tandem stenosis of the RCA which was treated with STORM placement. He underwent aspiration thrombectomy of the proximal/mid/distal LAD as well as PTCA of the proximal/mid/distal LAD with placement of a 2.5 x 34 mm STORM to the mid to distal LAD in addition to a 3.0 by 34 mm STORM to the proximal/mid LAD. He was hemodynamically unstable with progressive hypotension and cardiogenic shock requiring vasopressors/inotropes. The case was further complicated by recurrent ventricular tachycardia requiring pharmacologic cardioversion. Once stabilized, to be in 9th and a friend were weaned. Dual anti-platelet therapy was recommended for 1 year with guideline directed medical therapy for atherosclerotic vascular disease. Echocardiogram showed normal left ventricular size with moderately to severely reduced systolic function. The apical cap, anterior wall, mid to distal anterior septum and mid to distal anterolateral wall were severely hypokinetic to akinetic. The inferior wall had moderate hypokinesis. Right ventricle is normal in size and function. There is a prosthetic aortic valve well seated opening well with mildly increased gradient (mean 24.1 mmHg). The ascending aorta was mild to moderately enlarged at 4.5 cm. Aortic root mildly dilated at 4.3 cm. He was discharged home on 07/24/2019 on apixaban 5 mg twice daily aspirin 81 mg daily, clopidogrel 75 mg daily, lisinopril 2.5 mg daily, metoprolol succinate 12.5 mg daily, rosuvastatin 40 mg nightly and spironolactone 12.5 mg nightly in addition to noncardiac medications. He was not discharged on Lasix. Jason took his medications faithfully however he realized about 2 days after discharge that he had not filled spironolactone. He was developing progressively worsening shortness of breath and ultimately decided he could not wait until his 08/16/2019 follow-up with cardiology to be evaluated in presented again to [facility] Emergency Department. Cardiolgy was consulted for abnormal ECG and elevated cardiac enzymes. Jason denies ever having any chest pain prior to this admission. He has been following a heart healthy diet. He does not drink alcohol. Meds <ANA Rubi - Last Filed: 07/30/19 17:32> Home Medications and Allergies Home Medications Medication Instructions Recorded Confirmed Type glipizide 2 tab PO QACBREAK 11/08/17 07/28/19 History metformin 500 mg PO BIDAC 11/08/17 07/28/19 History apixaban 5 mg PO BID 07/28/19 07/28/19 History aspirin [Adult Low Dose Aspirin] 81 mg PO DAILY 07/28/19 07/28/19 History brimonidine 1 drp EYE-BOTH BID 07/28/19 07/28/19 History cholecalciferol (vitamin D3) 2,000 unit PO DAILY 07/28/19 07/28/19 History clopidogrel 75 mg PO DAILY 07/28/19 07/28/19 History coenzyme Q10 100 mg PO DAILY 07/28/19 07/28/19 History dorzolamide-timolol (PF) 1 drp OPHTHALMIC (EYE) BID 07/28/19 07/28/19 History insulin glargine [Lantus U-100 13 unit SUBCUT BID 07/28/19 07/28/19 History Insulin] latanoprost 1 drp OPHTHALMIC (EYE) BEDTIME 07/28/19 07/28/19 History lisinopril 2.5 mg PO DAILY 07/28/19 07/28/19 History metoprolol succinate 12.5 mg PO DAILY 07/28/19 07/28/19 History pantoprazole 20 mg PO DAILY 07/28/19 07/28/19 History rosuvastatin 40 mg PO BEDTIME 07/28/19 07/28/19 History spironolactone 12.5 mg PO DAILY 07/28/19 07/28/19 History Allergies Allergy/AdvReac Type Severity Reaction Status Date / Time sulfamethoxazole Allergy Intermediate Verified 07/28/19 10:24 [From Bactrim] trimethoprim [From Bactrim] Allergy Intermediate Verified 07/28/19 10:24 Review of Systems <ANA Rubi - Last Filed: 07/30/19 17:32> Review of Systems Narrative: Jason specifically denies any chest pain, pressure, palpitations, shortness of breath, dyspnea on exertion, orthopnea, dizziness, lightheadedness, swelling or presyncope. ROS: Yes All systems reviewed with the patient and are negative except as otherwise documented Exam <ANA Rubi - Last Filed: 07/30/19 17:32> Vital Signs (past 8 hours): - 07/30/19 09:05 07/30/19 12:00 Temperature 97.8 F Pulse Rate 75 85 Respiratory Rate 18 Blood Pressure 114/64 125/88 Pulse Oximetry 95 Oxygen Delivery Method Room Air Oxygen Flow Rate 0 Const General: cooperative and comfortable Nutritional Appearance: well nourished Orientation: alert and oriented x3 HENMT Head: normocephalic and atraumatic Ears: hearing grossly normal bilaterally Mouth: oral mucosae normal Eyes General: appearance normal, both eyes and all related structures Neck Other: Supple. No JVD. Right carotid endarterectomy scar noted. Chest Chest: normal inspection of the chest and normal palpation of entire chest wall Resp Effort & Inspection: normal respiratory effort and able to speak in complete sentences Auscultation: clear to auscultation bilaterally Percussion: percussion normal Cardio Other: Regular rate and rhythm. Normal S1 and S2. There is a 2/6 systolic ejection murmur heard best at the apex. GI Other: Bowel sounds present. Soft, nontender, nondistended. No pulsatile mass. Skin Other: Warm and dry. No gangrene or ulcer. Extrem Other: Extensive ecchymosis to the right groin and anterior thigh consistent with recent PCI. No hematoma. No pain to palpation. <Vera Kirby MD - Last Filed: 07/30/19 17:50> Extrem Other: No right groin bruit or pulsatile mass Objective <ANA Rubi - Last Filed: 07/30/19 17:32> Labs Result Diagrams: 07/30/19 10:12 07/29/19 05:35 Labs: Laboratory Results - last 24 hr 07/30/19 07/30/19 07/30/19 05:30 05:30 05:30 WBC 12.2 H RBC 4.31 L Hgb 12.6 L Hct 37.7 L MCV 87.5 MCH 29.3 MCHC 33.5 RDW 13.3 Plt Count 312 Neut % (Auto) 64.7 Lymph % (Auto) 21.6 L [place] % (Auto) 11.7 Eos % (Auto) 1.3 L Baso % (Auto) 0.7 Neut # (Auto) 7900 H Lymph # (Auto) 2600 [place] # (Auto) 1400 H Eos # (Auto) 200 Baso # (Auto) 100 PT INR APTT Magnesium 1.8 Total Creatine Kinase Troponin I 8.770 H* NT-Pro-B Natriuret Pep 9730 H 07/30/19 07/30/19 07/30/19 10:12 10:12 10:12 WBC RBC Hgb 12.9 L Hct 37.7 L MCV MCH MCHC RDW Plt Count Neut % (Auto) Lymph % (Auto) [place] % (Auto) Eos % (Auto) Baso % (Auto) Neut # (Auto) Lymph # (Auto) [place] # (Auto) Eos # (Auto) Baso # (Auto) PT 17.9 H D INR 1.6 H APTT 37 H Magnesium Total Creatine Kinase 188 H Troponin I NT-Pro-B Natriuret Pep 07/30/19 10:12 WBC RBC Hgb Hct MCV MCH MCHC RDW Plt Count 316 Neut % (Auto) Lymph % (Auto) [place] % (Auto) Eos % (Auto) Baso % (Auto) Neut # (Auto) Lymph # (Auto) [place] # (Auto) Eos # (Auto) Baso # (Auto) PT INR APTT Magnesium Total Creatine Kinase Troponin I NT-Pro-B Natriuret Pep Assessment & Plan <ANA Rubi - Last Filed: 07/30/19 17:32> Assessment & Plan narrative: 1. Acute decompensated heart failure with severe ischemic cardiomyopathy secondary to recent anterior wall NH 2. s/p PCI to LAD and RCA 3. Status post TAVR 4. Hypertension 5. Hyperlipidemia 6. Status post right carotid endarterectomy 7. Diabetes mellitus Jason is a delightful 78-year-old man with a recent history of anterior wall ST- elevation NH. He was discharged from [facility] on 07/24/2019. The trigger for his decompensation appears to be volume overload due to missed diuretic doses. He did not realize he had not filled his spironolactone into 2 days after discharge. While cardiac enzymes are elevated, they are decreased from previous presentation. ECG shows sinus rhythm with QS in V1 through V3 and continued ST elevation in V2 and V3 though less than on 07/23/2019. Echocardiogram shows an EF of 20-25%, unchanged from 07/22/2019. There is no evidence of mechanical basis for decompensation. Telemetry shows sinus rhythm with PACs and PVCs. After 120 mg of IV furosemide total yesterday and 60 mg this morning he appears to be euvolemic. He is able to lie flat and speak in complete sentences. Lungs are clear. Will stop IV furosemide and initiate p.o. furosemide 40 mg daily. Will increase spironolactone from 12.5 mg to 25 mg q.day. Continue lisinopril 2.5 mg. We will stop potassium replacement to avoid hyperkalemia. Continue statin. Continue low-dose beta-cheyenne. Will stop heparin infusion. He is on Eliquis, aspirin and Plavix therefore we will stop aspirin to lower his risk of bleeding. He should maintain a heart healthy, less than 2 g sodium per day diet with less than 2 L of fluid daily. Repeat echocardiogram in 3 months. He will need CHF education. Cardiac rehab in 2 weeks. Plan was discussed with Dr. Vera Kirby MD who also saw and examined the mynor ent. <Vera Kirby MD - Last Filed: 07/30/19 17:50> Assessment & Plan narrative: Pt was seen and examined with SUPERVIS[employer]GET[employer] Cabrera Hdz. A/P discussed with Cabrera. Consider close electrolytes monitoring.F/U with Cabrera in 3-4 weeks.
[2019-07-30] MEDS: INSULIN GLARGINE 100 UNIT/ML 3ML PEN 13 UNIT SUBCUT (21:40)
[2019-07-30] MEDS: ROSUVASTATIN 10 MG TABLET 40 MG PO (21:41)
[2019-07-31 05:18] VITALS: BP 118/86; PULSE 82; RESP 18; TEMP 36.7; O2SAT 96
[2019-07-31 06:23] LABS: Add Manual Diff / Slide Review NO; Basophils Absolute Auto 100 /uL (0-100); Basophils Percent Auto 0.6 % (0-2); Eosinophils Absolute Auto 200 /uL (0-450); Eosinophils Percent Auto 1.8 % (2-4); Hematocrit 37.9 % (41-53); Hemoglobin 12.6 g/dL (13.5-17.5); Lymphocytes Absolute Auto 2500 /uL (1100-4500); Lymphocytes Percent Auto 22.5 % (25-40); Mean Corpuscular HGB Conc 33.3 % (30-36); Mean Corpuscular Hemoglobin 29.3 PG (26-34); Monocytes Absolute Auto 1200 /uL (0-900); Monocytes Percent Auto 11.1 % (3-14); Neutrophils Absolute Auto 7000 /uL (1500-7000); Platelet Count 323 X10^3/uL (150-400); Red Cell Distribution Width 13.3 % (11.6-14.8); White Blood Cell Count 10.9 X10^3/uL (4.5-11.0)
[2019-07-31] MEDS: METFORMIN HCL 500 MG TABLET PO (06:29)
[2019-07-31] MEDS: glipiZIDE XL 5 MG TAB 20 MG PO (06:29)
[2019-07-31 06:35] LABS: Magnesium 1.9 mg/dL (1.6-2.3)
[2019-07-31 06:36] LABS: BUN Creatinine Ratio 22.3 (6-22); Blood Urea Nitrogen 29 mg/dL (9-20); Calcium 8.9 mg/dL (8.4-10.2); Carbon Dioxide 32 mmol/L (22-32); Chloride 99 mmol/L (98-107); Estimated Glomerular Filt Rate 53.1 mL/min (>60); Glucose 220 mg/dL (80-110); HEMOLYSIS < 15 (0-50); Potassium 4.6 mmol/L (3.4-5.1); Sodium 135 mmol/L (137-145)
[2019-07-31 06:48] LABS: NT-proBNP (BNP-Adult 18+) 7310 pg/mL (<450)
[2019-07-31 08:00] VITALS: BP 118/71; PULSE 69; RESP 18; TEMP 36.9; O2SAT 97
--- NOTE | 2019-07-31 08:08 | PM.DS.1 ---
History of Present Illness History of Present Illness Date Patient Seen: 07/31/19 Time Patient Seen: 08:08 Chief complaint: difficulty breathing, dry mouth Narrative: See history and physical Discharge Providers Provider Date of admission: 07/28/19 14:31 Discharge Date: 07/31/19 Primary care physician: Ian Manning MD Consults: 07/28/19 14:16 Consult to Physician Routine Comment: Consulting Provider: Pari Blackman Reason for consultation: admission Has provider been notified: Yes 07/28/19 18:05 Consult to Discharge Planning Routine Comment: 07/28/19 18:07 Consult to Occupational Therapy Evaluate & Treat Comment: Physician Instructions: Evaluate and treat Consult to Physical Therapy Evaluate & Treat Comment: Physician Instructions: Evaluate and Treat 07/28/19 19:16 Consult to Dietitian, Adult Routine Comment: Reason For Exam: obesity 07/30/19 09:34 Consult to Cardiology Routine Comment: Consulting Provider: Ian Manning Reason for consultation: Elevated troponins, recent Stemi Discharge provider: Ian Manning MD Summary Hospital Course Discharge Diagnosis: Acute decompensated heart failure with severe ischemic cardiomyopathy secondary to recent anterior wall [place] Status post PCI to LAD RCA status post TAVR Hypertension Hyperlipidemia Type 2 diabetes History of GERD Hospital Course: Acute systolic heart failure left ventricular secondary to ischemic cardiomyopathy severe from recent anterior wall [place]. Patient was admitted and aggressively diuresed. Brutus better after the 1st 24 hours continue diuresis. Had discussed twice with transportation worker to felt as if he was stable and just needed to be diuresed. Echo was obtained. 20-25% EF which has not changed. Discussed with transportation worker who initially felt as if this could be potentially an issue with his stents. Heparin was began transportation worker saw him and felt as if he was stable. Was discontinued on his heparin. Less than 4 hours. Patient otherwise continued to do well. Was feeling back to baseline and will be discharged home he will be followed closely. Congestive heart failure issues were discussed. We did discuss as needed Lasix and use. He will be restarted on all his previous medication. Which should cover most of issues. Recent STEMI status post PCI to LAD and RCA. Patient had significant increase in his troponins but no change in his EKG no symptoms of any chest pain. Trigger troponins and CPK of all continue to improve. Patient was felt to be just recovering from his previous large cardiac event and at this point no further treatment. We discussed importance of his not under evaluating any chest discomfort he has. He understands and will call if any change. Type 2 diabetes his control continues to be poor but we have been adjusting. He is on his way to an executive compensation analyst. History of atrial fibrillation on active this time and stable. Status post aortic valve replacement doing well. No evidence of any issue. Will follow. Hypertension. Not an issue on current medicines will follow. Good, stable. . No issues during admission. Will follow as outpatient Status at Discharge Cognitive/behavioral status at discharge: oriented Functional status at discharge: uses cane/walker Overall status at discharge: patient is progressing back to baseline Time Spent with Patient Time spent: Greater than 30 minutes Exam Vital Signs (past 8 hours): - 07/31/19 05:18 Temperature 98.1 F Pulse Rate 82 Respiratory Rate 18 Blood Pressure 118/86 Pulse Oximetry 96 Oxygen Delivery Method Room Air Oxygen Flow Rate 0 Objective Labs Result Diagrams: 07/31/19 06:05 07/31/19 06:05 Labs: Laboratory Results - last 24 hr 07/30/19 07/30/19 07/30/19 10:12 10:12 10:12 WBC RBC Hgb 12.9 L Hct 37.7 L MCV MCH MCHC RDW Plt Count Neut % (Auto) Lymph % (Auto) Hopkins % (Auto) Eos % (Auto) Baso % (Auto) Neut # (Auto) Lymph # (Auto) [place] # (Auto) Eos # (Auto) Baso # (Auto) PT 17.9 H D INR 1.6 H APTT 37 H Sodium Potassium Chloride Carbon Dioxide BUN Creatinine Estimated GFR BUN/Creatinine Ratio Glucose Calcium Magnesium Total Creatine Kinase 188 H Troponin I NT-Pro-B Natriuret Pep 07/30/19 07/31/19 07/31/19 10:12 06:05 06:05 WBC 10.9 RBC 4.30 L Hgb 12.6 L Hct 37.9 L MCV 88.0 MCH 29.3 MCHC 33.3 RDW 13.3 Plt Count 316 323 Neut % (Auto) 64.0 Lymph % (Auto) 22.5 L Hopkins % (Auto) 11.1 Eos % (Auto) 1.8 L Baso % (Auto) 0.6 Neut # (Auto) 7000 Lymph # (Auto) 2500 Hopkins # (Auto) 1200 H Eos # (Auto) 200 Baso # (Auto) 100 PT INR APTT Sodium Potassium Chloride Carbon Dioxide BUN Creatinine Estimated GFR BUN/Creatinine Ratio Glucose Calcium Magnesium Total Creatine Kinase Troponin I 6.280 H* NT-Pro-B Natriuret Pep 7310 H 07/31/19 07/31/19 06:05 06:05 WBC RBC Hgb Hct MCV MCH MCHC RDW Plt Count Neut % (Auto) Lymph % (Auto) [place] % (Auto) Eos % (Auto) Baso % (Auto) Neut # (Auto) Lymph # (Auto) [place] # (Auto) Eos # (Auto) Baso # (Auto) PT INR APTT Sodium 135 L Potassium 4.6 Chloride 99 Carbon Dioxide 32 BUN 29 H Creatinine 1.30 H Estimated GFR 53.1 L BUN/Creatinine Ratio 22.3 H Glucose 220 H D Calcium 8.9 Magnesium 1.9 Total Creatine Kinase Troponin I NT-Pro-B Natriuret Pep Discharge Plan Discharge Plan Patient Disposition: Home Discharge comment: Patient is to check morning daily weights and use furosemide if more than 2-3 lb weight gain in 24 hours Discharge orders & Medications Prescriptions: New furosemide 20 mg tablet 20 mg PO DAILY Qty: 30 RF: 1 Continued metformin 500 mg tablet 500 mg PO BIDAC RF: 0 glipizide 10 mg tablet extended release 24hr 2 tab PO QACBREAK RF: 0 latanoprost 0.005 % Drops 1 drp OPHTHALMIC (EYE) BEDTIME RF: 0 Lantus U-100 Insulin 100 unit/mL Solution 13 unit SUBCUT BID RF: 0 aspirin [Adult Low Dose Aspirin] 81 mg Tablet,Delayed Release (Dr/Ec) 81 mg PO DAILY RF: 0 spironolactone 25 mg Tablet 12.5 mg PO DAILY RF: 0 pantoprazole 20 mg Tablet,Delayed Release (Dr/Ec) 20 mg PO DAILY RF: 0 metoprolol succinate 25 mg Tablet Extended Release 24 Hr 12.5 mg PO DAILY RF: 0 lisinopril 2.5 mg Tablet 2.5 mg PO DAILY RF: 0 brimonidine 0.15 % Drops 1 drp EYE-BOTH BID RF: 0 coenzyme Q10 100 mg Capsule 100 mg PO DAILY RF: 0 rosuvastatin 40 mg Tablet 40 mg PO BEDTIME RF: 0 apixaban 5 mg Tablet 5 mg PO BID RF: 0 dorzolamide-timolol (PF) 2-0.5 % Drops 1 drp OPHTHALMIC (EYE) BID RF: 0 clopidogrel 75 mg Tablet 75 mg PO DAILY RF: 0 cholecalciferol (vitamin D3) 2,000 unit Tablet 2,000 unit PO DAILY RF: 0 Follow up/Referrals: Ian Manning MD [Primary Care Provider] - 08/06/19 Visit Report/Discharge Packet Instructions: Heart Failure, DI for Heart Failure, Fluid Restricted Diet, Furosemide, How to Restrict Fluids, Heart Failure: Salt and Fluids Discharge Data Primary Care Provider: Ian Manning
[2019-07-31] MEDS: APIXABAN 5 MG TABLET PO (08:41)
[2019-07-31] MEDS: CLOPIDOGREL 75 MG TABLET PO (08:42)
[2019-07-31] MEDS: FUROSEMIDE 40 MG TABLET PO (08:43)
[2019-07-31] MEDS: lisinopriL 5 MG TABLET 2.5 MG PO (08:43)
[2019-07-31] MEDS: MAGNESIUM CHLORIDE 64 MG TABLET PO (08:47)
[2019-07-31] MEDS: METOPROLOL ER 25 MG TABLET 12.5 MG PO (08:48)
[2019-07-31] MEDS: PANTOPRAZOLE 20 MG TABLET PO (08:49)
[2019-07-31] MEDS: SPIRONOLACTONE 25 MG TABLET PO (08:51)
[2019-07-31] MEDS: DORZOLAMIDE TIMOLOL 1 EACH EYE-BOTH (08:54)
[2019-07-31] MEDS: BRIMONIDINE 0.15% OPHTH 5 ML 1 DROPS EYE-BOTH (08:55)
--- NOTE | 2019-07-31 09:51 | OT.IP.EVAL ---
Current Diagnoses Acute on chronic systolic (congestive) heart failure (07/28/19) Past Medical History (Last Reviewed 07/30/19 @ 16:55 by ANA Rubi) Coronary artery disease (Acute) Diabetes (Acute) Hyperlipidemia (Acute) Hypertension (Acute) Occupational Therapy Inpatient Evaluation/Re-Eval M1 PT/OT-IP Prior Functional Status Start: 07/29/19 09:19 Freq: NEEDED Status: Active Protocol: Document 07/29/19 14:04 CGR (Rec: 07/29/19 14:15 CGR [email or web address]) Medical Review Prior Functional Status Medical History Reviewed Yes Communication WNL Mobility and Gait Prior to [place] 1 week ago, pt had been independent with all functional mobility. Since his hospitalization, he has been using a SPC nearly 100% of the time to increase his confidence related to reported unsteadiness. Activities of Daily Living and IADL's Independent Social History Household Members spouse Living Arrangements House Number of Floors (Floors) One Floor Number of Stairs To Enter/Railing? ramped entry Home Environment Standard Height Toilet,Walk in Shower,Tub/Shower,Ramp Home Equipment Four Wheel Walker,Straight Cane,Shower Seat with Backrest ,Hand Held Shower,Washer Machine,Grab Bars Near Toilet,Grab Bars In Shower Employment Status Retired Additional Social History Comment Pt lives with his spouse. 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 He has a son who lives nearby and another who he states is a truck and transport mechanic on the [facility] [employer] . M2 OT-IP Current Condition Start: 07/29/19 14:04 Freq: Status: Active Protocol: Document 07/29/19 14:04 CGR (Rec: 07/29/19 14:15 CGR [email or web address]) Occupational Therapy Current Condition Current Condition Evaluation Date 07/29/19 Treatment Diagnosis Dyspena @ rest, acute systolic heart failure Diagnosis Onset Date 07/28/19 M3 OT- IP Subjective and Pain Start: 07/29/19 14:04 Freq: Status: Active Protocol: Document 07/31/19 09:45 CCC (Rec: 07/31/19 09:51 CCC [email or web address]) OT- Subjective Occupational Therapy Visit Type Type Treatment Note Visit Start Time 09:30 Visit Stop Time 09:42 Total Visit Minutes 12 Occupational Therapy Visit Comments Patient Comments Pt ready to go home and dressing and getting his items together. Patient/Caregiver Goals To go home. OT Pain Assessment Pain When Pain Assessed At Rest Pain Present Pain Present Denied Pain M4 OT- IP ADL's Start: 07/29/19 14:04 Freq: Status: Active Protocol: Document 07/31/19 09:45 [facility] (Rec: 07/31/19 09:51 [facility] [id number]) OT EXI-Dqbv-Afgasle Comments OT Self-Feeding Comments Not assessed in this session. OT ADL-Grooming Comments OT Grooming Comments Pt already performed prior to therapist coming in. OT ADL-Dressing General Eval Upper Body Dressing Ability Independent Lower Body Dressing Ability Standby Assistance Areas Needing Assistance Socks Comments OT Dressing Comments Able to set up sock iad for pt and re-educated on use. OT ADL-Bathing Comments OT Bathing Comments Pt states to shower at home. M5 OT- IP IADL's Start: 07/29/19 14:04 Freq: Status: Active Protocol: Document 07/29/19 14:04 CGR (Rec: 07/29/19 14:15 CGR [email or web address]) OT-Instrumental Activities of Daily Living Deficits IADL Deficits Identified No Deficits Home Safety Awareness Awareness of Need for Assistance at Home Good Awareness Ability to Problem Solve Emergency Able to Problem Solve Situations Medication Management Medication Management No Deficits Identified Money Management Money Management No Deficits Identified Meal Preparation Meal Preparation Caregiver Provides Assist Emergency Management Consultant Emergency Management Consultant Caregiver Provides Assist Driving Driving Comments 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 M6 OT- IP Functional Cognition Start: 07/29/19 14:04 Freq: Status: Active Protocol: Document 07/31/19 09:45 [facility] (Rec: 07/31/19 09:51 [facility] [email or web address]) Cognitive Factors Limiting Selfcare Function Cognitive Ability Memory Description Short Term Impaired Cognitive Comments Cognitive Assessment Comments Pt needing reminders to gather all items prior to going home . Had to point out ot get his phone program planner, and to look into the bathroom as pt forgetting his robe. M7 OT- IP Mobility and Balance Start: 07/29/19 14:04 Freq: Status: Active Protocol: Document 07/31/19 09:45 [facility] (Rec: 07/31/19 09:51 [facility] [email or web address]) OT-Transfer Assessment Sit to and From Stand Sit to and from Stand Independent Transfers Transfer Ability Independent Technique Transfer Destination Chair Transfer Technique Stand Step Pivot Devices Transfer Assistive Devices None Comments Mobility Comments Pt able to walk in the room with no device. 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 Pt aware to be careful at home and use his SPC as needed. Able to go over energy conservation strategies for pt and information given. Pt has good understanding. M8 OT- IP Objective Assessments Start: 07/29/19 14:04 Freq: Status: Active Protocol: Document 07/29/19 14:04 CGR (Rec: 07/29/19 14:15 CGR [email or web address]) OT Gross Range of Motion Upper Extremity Range of Motion Assessment Within Functional Limits OT Strength Upper Extremity Strength Assessment Within Functional Limits Comments Strength Comments Grossly 4+/5 OT- Coordination Assessment Upper Extremity Finger to Nose Test Within Functional Limits Finger Tapping Test Within Functional Limits OT-Muscle Tone Assessment Muscle Tone WNL Yes OT Sensation Assessment Edema Edema Absent M9 OT- IP Assessment and Plan Start: 07/29/19 14:04 Freq: Status: Active Protocol: Document 07/31/19 09:45 CCC (Rec: 07/31/19 09:51 CCC [email or web address]) OT Summary Assessment and Plan Potential Rehabilitation Potential Good Analytic Complexity at Evaluation Low Summary Progress Towards Goals Progressing Toward Goals Assessment Summary Pt just needing cues to slow down and take his time while dressing and gathering items prior to going home. Pt going home with partner to assist. Discharge Recommendations OT Discharge Recommendations Home Transportation Needs at Discharge Private Vehicle
--- NOTE | 2019-07-31 10:02 | PC.NURSE ---
Day shift: Pt left unit in WC taken by student RN. Taken to car driven by his spouse. Paperwork signed and MD script sent to Pt's pharmacy. All questions answered. Pt has all personal belongings. Pt stated that he is glad to go home today.
--- NOTE | 2019-07-31 10:35 | CM.DPC ---
DCP: continued: Case received and discussed in Team Rounds. DC to home order was noted. A check in after Rounds shows that pt did d/c to home with is life partner Jose R driving at 1000.
== END 2019-07-31 10:04 | disposition home or self-care (01) | DRG 282 ==
LOC: ED 11:18 → AC 14:33
PROVIDERS: Admitting Provider Student in an Organized Health Care Education/Training Program; Emergency Provider Emergency Medicine; PCP Family Medicine; Referring Provider Emergency Medicine; Visit Provider Student in an Organized Health Care Education/Training Program
DX: I11.0 Hypertensive heart disease with heart failure (principal); I21.09 ST elevation (STEMI) myocardial infarction involving other coronary artery of anterior wall; I50.23 Acute on chronic systolic (congestive) heart failure; I25.5 Ischemic cardiomyopathy; E11.9 Type 2 diabetes mellitus without complications; E78.5 Hyperlipidemia, unspecified; I25.10 Atherosclerotic heart disease of native coronary artery without angina pectoris; K21.9 Gastro-esophageal reflux disease without esophagitis; Z79.4 Long term (current) use of insulin; Z95.2 Presence of prosthetic heart valve; H40.9 Unspecified glaucoma; Z79.01 Long term (current) use of anticoagulants
CPT/HCPCS: 36415; 71045; 80048; 80053; 82550; 82553; 82962; 83690; 83735; 83880; 84145; 84484; 85014; 85018; 85025; 85049; 85610; 85730; 93005; 93307; 94762; 96374; 97116; 97162; 97165; 97530; 97535; 99285; J1644; J1940

== ENCOUNTER 2019-09-11 12:25 | Outpatient (RCR) | payer OTHER, SELFPAY ==
[2019-07-28 16:02] VITALS: BMI 31.2
== END 2019-09-11 13:25 ==
LOC: CAR 12:25
PROVIDERS: Family Provider Family Medicine; PCP Family Medicine; Referring Provider Family Medicine; Visit Provider Family Medicine
DX: I21.3 ST elevation (STEMI) myocardial infarction of unspecified site (principal)
CPT/HCPCS: 93798

== ENCOUNTER → 2019-09-28 15:41 | Outpatient (CLI) | payer OTHER, SELFPAY ==
[2019-07-28 16:02] VITALS: BMI 31.2
[2019-09-28 17:13] LABS: BUN Creatinine Ratio 27.4 (6-22); Blood Urea Nitrogen 26 mg/dL (9-20); Calcium 9.3 mg/dL (8.4-10.2); Carbon Dioxide 25 mmol/L (22-32); Chloride 106 mmol/L (98-107); Estimated Glomerular Filt Rate > 60.0 mL/min (>60); Glucose 166 mg/dL (80-110); HEMOLYSIS 19 (0-50); Potassium 4.5 mmol/L (3.4-5.1); Sodium 139 mmol/L (137-145)
== END ==
PROVIDERS: Family Provider Family Medicine; PCP Family Medicine; Referring Provider Nurse Practitioner; Visit Provider Nurse Practitioner
DX: I25.5 Ischemic cardiomyopathy (principal); E11.59 Type 2 diabetes mellitus with other circulatory complications; Z79.4 Long term (current) use of insulin
CPT/HCPCS: 36415; 80048; 83036

== ENCOUNTER → 2019-10-05 14:04 | Outpatient (CLI) | payer OTHER, SELFPAY ==
[2019-07-28 16:02] VITALS: BMI 31.2
[2019-10-05 15:56] LABS: BUN Creatinine Ratio 25.5 (6-22); Blood Urea Nitrogen 24 mg/dL (9-20); Calcium 9.4 mg/dL (8.4-10.2); Carbon Dioxide 23 mmol/L (22-32); Chloride 106 mmol/L (98-107); Estimated Glomerular Filt Rate > 60.0 mL/min (>60); Glucose 293 mg/dL (80-110); HEMOLYSIS 25 (0-50); Potassium 4.9 mmol/L (3.4-5.1); Sodium 137 mmol/L (137-145)
== END ==
PROVIDERS: Family Provider Family Medicine; PCP Family Medicine; Referring Provider Nurse Practitioner; Visit Provider Nurse Practitioner
DX: I25.5 Ischemic cardiomyopathy (principal); E11.59 Type 2 diabetes mellitus with other circulatory complications; Z79.4 Long term (current) use of insulin
CPT/HCPCS: 36415; 80048

== ENCOUNTER → 2019-10-22 10:37 | Outpatient (CLI) | payer OTHER, SELFPAY ==
[2019-07-28 16:02] VITALS: BMI 31.2
[2019-10-22 13:12] LABS: BUN Creatinine Ratio 21.6 (6-22); Blood Urea Nitrogen 22 mg/dL (9-20); Calcium 9.1 mg/dL (8.4-10.2); Carbon Dioxide 21 mmol/L (22-32); Chloride 106 mmol/L (98-107); Estimated Glomerular Filt Rate > 60.0 mL/min (>60); Glucose 181 mg/dL (80-110); HEMOLYSIS < 15 (0-50); Potassium 4.6 mmol/L (3.4-5.1); Sodium 138 mmol/L (137-145)
== END ==
PROVIDERS: Family Provider Family Medicine; PCP Family Medicine; Referring Provider Nurse Practitioner; Visit Provider Nurse Practitioner
DX: I25.5 Ischemic cardiomyopathy (principal); E11.59 Type 2 diabetes mellitus with other circulatory complications; Z79.4 Long term (current) use of insulin
CPT/HCPCS: 36415; 80048

== ENCOUNTER → 2019-12-25 12:54 | Outpatient (CLI) | payer OTHER, SELFPAY ==
[2019-07-28 16:02] VITALS: BMI 31.2
[2019-12-25 14:58] LABS: BUN Creatinine Ratio 22.9 (6-22); Blood Urea Nitrogen 27 mg/dL (9-20); Calcium 9.3 mg/dL (8.4-10.2); Carbon Dioxide 23 mmol/L (22-32); Chloride 105 mmol/L (98-107); Estimated Glomerular Filt Rate 59.2 mL/min (>60); Glucose 332 mg/dL (80-110); HEMOLYSIS < 15 (0-50); Sodium 136 mmol/L (137-145)
== END ==
PROVIDERS: Family Provider Family Medicine; PCP Family Medicine; Referring Provider Nurse Practitioner; Visit Provider Nurse Practitioner
DX: I48.0 Paroxysmal atrial fibrillation (principal); I25.5 Ischemic cardiomyopathy
CPT/HCPCS: 36415; 80048

== ENCOUNTER → 2020-01-21 07:48 | Outpatient (CLI) | payer OTHER, SELFPAY ==
[2019-07-28 16:02] VITALS: BMI 31.2
--- NOTE | 2020-01-21 | DI.ECHO.S_ITS ---
[place] [facility]---------+ [facility] +---------+ : : [address] : : : : [id number] : : : : Phone: [phone]---------+ Echocardiogram Report + + :Name: DAVID COATES Study Date: 01/21/2020 Height: 68 in : :[facility] Weight: 202 lb : : Gender: Male BSA: 2.1 m2 : :: 1940 Age: 79 yrs BP: 108/64 mmHg: :Reason For Study: Ischemic Cardiomyopathy : :Ordering Physician: JOHNNA, : :NATHAN PEREZ Performed By: Yusra Cisneros : :Referring: NATHAN OROPEZA N : + + Interpretation Summary The left ventricle is normal in size. Left ventricular ejection fraction is estimated to be 45%. There is moderate hypokinesis of the basal to apical anterior and anteroseptal bennett. The right ventricle is normal in size and function. The right ventricular systolic pressure is estimated to be at least 26 mmHg based on an estimated right atrial pressure of 3 mm Hg. The ascending aorta is moderately enlarged. -Compared to the prior echocardiogram, the LV ejection fraction has improved and the anterior wall tract has a slightly improved as well. Procedure: A two-dimensional transthoracic echocardiogram with color flow and Doppler was performed. The study quality was technically adequate. Comparison is made with the echocardiogram of 07/29/2019. The patient was in sinus bradycardia with heart rates between 49-60 bpm during the exam. Left Ventricle: The left ventricle is normal in size. There is mild concentric left ventricular hypertrophy. Left ventricular ejection fraction is estimated to be 45%. There is moderate hypokinesis of the basal to apical anterior and anteroseptal bennett. Diastolic function could not be accurately assessed due to contradictory data. Right Ventricle: The right ventricle is normal in size and function. Atria: The left atrium is mildly dilated. Right atrial size is normal. There is no Doppler evidence for an interatrial shunt. Mitral Valve: There is mild to moderate mitral annular calcification. The mitral valve is normal in structure and function. There is mild mitral regurgitation. 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 No aortic regurgitation is present. Tricuspid Valve: The tricuspid valve is normal in structure and function. There is trace tricuspid regurgitation. The right ventricular systolic pressure is estimated to be at least 26 mmHg based on an estimated right atrial pressure of 3 mm Hg. Pulmonic Valve: The pulmonic valve leaflets are thin and pliable; valve motion is normal. There is no pulmonic valvular regurgitation. Great Vessels: The ascending aorta is moderately enlarged. The IVC is of normal diameter and collapses greater than 50% with a sniff. This suggests a low right atrial pressure of 3 mm Hg. Pericardium/ Pleura There is no pericardial effusion. There is no pleural effusion. MMode/2D Measurements & Calculations LVIDd: 4.7 cm LVOT diam: 2.1 cm LVIDs: 3.6 cm asc Aorta Diam: 4.5 cm FS: 22.5 % Ao Arch Diam (Prox Trans): 2.6 cm EPSS: 0.61 cm IVSd: 1.2 cm LVPWd: 1.1 cm LV solano. diameter/BSA (cm/m^2): 2.3 LV sys. diameter/BSA (cm/m^2): 1.8 LA A2 area: 25.6 cm2 RA long axis: 5.8 cm LA A4 area: 20.5 cm2 RA area: 16.4 cm2 LA length (vol): 5.7 cm RA vol: 39.5 ml LA vol: 78.0 ml RA : 19.2 ml/m2 LA vol index: 38.0 ml/m2 IVC diam: 1.6 cm RVD1 (basal): 3.5 cm LVAd ap4: 39.6 cm2 TAPSE: 2.2 cm LVAs ap4: 26.1 cm2 LVLs ap4: 7.4 cm LVAd ap2: 37.0 cm2 LVLd ap2: 9.4 cm LVAs ap2: 23.2 cm2 LVLs ap2: 7.4 cm Doppler Measurements & Calculations Ao V2 max: 166.8 cm/sec LVOT Max Tony: 74.1 cm/sec Ao V2 mean: 118.7 cm/sec LV V1 max P.2 mmHg Ao max P.1 mmHg LV V1 VTI: 15.9 cm Ao mean P.2 mmHg JANA(I,D): 1.7 cm2 Ao V2 VTI: 33.5 cm JANA(V,D): 1.6 cm2 sev ratio: 0.47 JANA indexed to BSA (cm^2/m^2): 0.84 MV E max tony: 83.1 cm/sec TR max tony: 237.4 cm/sec MV A max tony: 66.5 cm/sec TR max P.5 mmHg MV E/A: 1.2 PA V2 max: 73.6 cm/sec Med Peak E' Tony: 3.7 cm/sec PA V2 mean: 43.7 cm/sec E/E' med: 22.3 PA mean P.93 mmHg Lat Peak E' Tony: 8.8 cm/sec PA pr(Accel): 32.8 mmHg E/E' lat: 9.4 E/e' average: 15.8 MV dec time: 0.22 sec SV(LVOT): 57.7 ml Electronically signed by: David Chavez M.D. on Reading Physician:01/24/2020 12:26 PM
== END ==
PROVIDERS: Family Provider Family Medicine; PCP Family Medicine; Referring Provider Nurse Practitioner; Visit Provider Nurse Practitioner
DX: I34.0 Nonrheumatic mitral (valve) insufficiency (principal); I25.5 Ischemic cardiomyopathy; Z95.2 Presence of prosthetic heart valve
CPT/HCPCS: 93306

== ENCOUNTER → 2020-04-25 10:29 | Outpatient (CLI) | payer OTHER, SELFPAY ==
[2019-07-28 16:02] VITALS: BMI 31.2
[2020-04-25 11:50] LABS: Hemoglobin A1C% w Est Avg Glu 9.2 % (4.0-6.0)
[2020-04-25 12:13] LABS: Alanine Aminotransferase 27 IU/L (<50); Albumin 3.7 g/dL (3.5-5.0); Albumin Globulin Ratio 1.2 (1.0-2.8); Alkaline Phosphatase 50 U/L (38-126); Aspartate Aminotransferase 25 IU/L (17-59); BUN Creatinine Ratio 32.4 (6-22); Bilirubin Total 0.6 mg/dL (0.2-1.3); Blood Urea Nitrogen 36 mg/dL (9-20); Carbon Dioxide 23 mmol/L (22-32); Chloride 106 mmol/L (98-107); Cholesterol 146 mg/dL (140-199); Estimated Glomerular Filt Rate > 60.0 mL/min (>60); Globulin 3.2 g/dL (1.7-4.1); Glucose 152 mg/dL (80-110); HDL Cholesterol 35 mg/dL (40-60); HEMOLYSIS < 15 (0-50); LDL Cholesterol Calculated 69 mg/dL (<100); Sodium 136 mmol/L (137-145); Total Protein 6.9 g/dL (6.3-8.2); Triglycerides 208 mg/dL (35-150)
[2020-05-06 15:53] LABS: LDL Particle 1071
[2020-05-06 15:54] LABS: HDL-Cholesterol 39; LDL-Cholsterol 86; Triglycerides 190
[2020-05-06 15:55] LABS: Cholesterol, Total 157; HDL-Particle (Total) 26.1
[2020-05-06 15:56] LABS: LDL Size 20.8; Small LDL- Particle 560
== END ==
PROVIDERS: Family Provider Family Medicine; PCP Family Medicine; Referring Provider Specialist; Visit Provider Specialist
DX: I48.0 Paroxysmal atrial fibrillation (principal); E78.2 Mixed hyperlipidemia; E11.9 Type 2 diabetes mellitus without complications
CPT/HCPCS: 36415; 80053; 80061; 83036; 83704; 83735

== ENCOUNTER → 2021-03-24 13:41 | Outpatient (CLI) | payer OTHER, SELFPAY ==
[2019-07-28 16:02] VITALS: BMI 31.2
--- NOTE | 2021-03-24 | DI.ECHO.S_ITS ---
[place] [facility]---------+ [facility] +---------+ : : [address] : : : : [phone] : : : : Phone: [phone] +---------+ Echocardiogram Report + + :Name: DAVID COATES Study Date: 03/24/2021 Height: 69 in : :[facility] ReadingLocation: Weight: 211 lb : : Gender: Male BSA: 2.1 m2 : :: 1940 Age: 80 yrs BP: 132/83 mmHg: :Reason For Study: Cardiomyopathy, Ischemic : :Ordering Physician: Marcella : :Zarina Mckeon Performed By: AMY YOST : :Referring: MARCELLA MCKEON : + + Interpretation Summary Left ventricular systolic function is mildly reduced with an estimated ejection fraction of around 45% with mild global hypokinesis and no obvious focal wall motion abnormalities and appears slightly more dynamic compared to the previous study. Left ventricular size and wall thickness appear normal. Diastolic function is likely abnormal with a pseudonormalized filling pattern, suggesting elevated filling pressures, possibly higher compared to the previous study. The right ventricle appears normal and likely unchanged from the previous study. Right ventricular systolic pressure cannot be estimated but CVP is likely around 3 mmHg. There is moderate left atrial enlargement with mild interval increase in size. The right atrium is normal in size and unchanged. There is mild mitral regurgitation that is slightly more prominent compared to the previous study. The bioprosthetic aortic valve appears to be well-seated but now with significantly higher transvalvular velocities at 3.5 m/s and a mean gradient of 33 mmHg, compared to 1.7 m/s and 6 mmHg, respectively, on the previous exam. 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 There is mild to moderate aortic regurgitation that is also new compared to the previous study. The aortic root is mildly enlarged and the ascending aorta is moderately enlarged but the latter grossly unchanged from the previous study, perhaps slightly smaller. Procedure: A two-dimensional transthoracic echocardiogram with color flow and Doppler was performed. The study quality was technically adequate. Comparison is made with the echocardiogram of 01/21/2020. The patient was in normal sinus rhythm during the exam. Left Ventricle: The left ventricle is normal in size and wall thickness. Left ventricular systolic function is mildly reduced. Left ventricular ejection fraction is estimated to be around 45%. There is mild global hypokinesis of the left ventricle. There are no focal wall motion abnormalities. This is slightly more dynamic compared to the previous study. Diastolic parameters suggest a pseudonormalization pattern, consistent with probable elevated filling pressures. This is possibly higher compared to the previous study. Right Ventricle: The right ventricle grossly appears normal in size with probable normal systolic function. This is unchanged compared to the previous study. Atria: The left atrium is moderately dilated. The left atrium has mildly increased in size since the prior echo exam. Right atrial size is normal. This is unchanged compared to the previous study. There is no Doppler evidence for an interatrial shunt. The atrial septum is aneurysmal. Mitral Valve: There is mild to moderate mitral annular calcification. There is mild mitral regurgitation. This is slightly more prominent compared to the previous study. 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 The prosthetic aortic valve is well-seated. There is moderate to severe aortic stenosis. The peak aortic velocity is 3.5 m/sec. The aortic valve mean gradient is 33 mmHg. This is significantly higher compared to the previous study. There is mild to moderate aortic regurgitation. This is significantly more prominent compared to the previous study. Tricuspid Valve: The tricuspid valve is normal. There is a trace or physiologic amount of tricuspid regurgitation. Pulmonary artery pressures cannot be estimated because of the lack of a measurable TR jet velocity but the IVC suggests a CVP of around 3 mmHg. Pulmonic Valve: The pulmonic valve leaflets are thin and pliable; valve motion is normal. There is a trace or physiologic amount of pulmonic regurgitation. Great Vessels: The aortic root is mildly dilated. The ascending aorta is moderately enlarged. This is unchanged compared to the previous study. The aortic arch is normal in size. The IVC is of normal diameter and collapses greater than 50% with a sniff. This suggests a low right atrial pressure of 3 mm Hg. Pericardium/ Pleura There is no pericardial effusion. There is an anterior echo-free space consistent with a fat pad. There is no pleural effusion. MMode/2D Measurements & Calculations LVIDd: 4.9 cm LVOT diam: 2.4 cm LVIDs: 4.2 cm Ao root diam: 4.0 cm FS: 14.0 % asc Aorta Diam: 4.1 cm IVSd: 0.67 cm Ao Arch Diam (Prox Trans): 2.5 cm LVPWd: 1.0 cm LV solano. diameter/BSA (cm/m^2): 2.3 LV sys. diameter/BSA (cm/m^2): 2.0 LA A2 area: 27.4 cm2 RA long axis: 6.5 cm LA A4 area: 28.2 cm2 RA area: 17.7 cm2 LA length (vol): 6.6 cm RA vol: 41.2 ml LA vol: 100.0 ml RA : 19.5 ml/m2 LA vol index: 47.3 ml/m2 TAPSE: 1.9 cm Doppler Measurements & Calculations Ao V2 max: 347.9 cm/sec LVOT Max Tony: 89.0 cm/sec Ao V2 mean: 275.9 cm/sec LV V1 max P.2 mmHg Ao max P.4 mmHg LV V1 VTI: 23.5 cm Ao mean P.5 mmHg JANA(I,D): 1.2 cm2 Ao V2 VTI: 88.2 cm JANA(V,D): 1.1 cm2 sev ratio: 0.27 JANA indexed to BSA (cm^2/m^2): 0.55 MV E max tnoy: 84.5 cm/sec PA V2 max: 59.3 cm/sec MV A max tony: 43.7 cm/sec PA V2 mean: 42.4 cm/sec MV E/A: 1.9 PA mean P.76 mmHg Med Peak E' Tony: 2.8 cm/sec PA pr(Accel): 51.6 mmHg E/E' med: 30.4 Lat Peak E' Tony: 7.1 cm/sec E/E' lat: 11.9 E/e' average: 21.1 MV dec time: 0.17 sec SV(LVOT): 102.8 ml Reading Physician:03:51 PM
== END ==
PROVIDERS: Family Provider Family Medicine; PCP Family Medicine; Referring Provider Specialist; Visit Provider Specialist
DX: I08.0 Rheumatic disorders of both mitral and aortic valves (principal); I77.810 Thoracic aortic ectasia; I77.89 Other specified disorders of arteries and arterioles; I25.5 Ischemic cardiomyopathy; Z95.2 Presence of prosthetic heart valve
CPT/HCPCS: 93306

== ENCOUNTER → 2021-06-01 08:40 | Outpatient (CLI) | payer OTHER, SELFPAY ==
[2019-07-28 16:02] VITALS: BMI 31.2
[2021-06-01 09:44] LABS: COVID19 -Nasal RAPID Negative (Negative)
--- NOTE | 2021-06-01 19:02 | DI.NM.S_ITS ---
DATE OF SERVICE: 06/01/2021 PROCEDURE: Pharmacological perfusion study. 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 RADIOPHARMACEUTICAL: 24.8 millicurie technetium-99m Myoview IV was injected at stress and 12.3 millicurie technetium-99m Myoview IV was injected at rest. CARDIAC STRESS: The patient initially attempted exercise stress test, but could not walk further. His hip was hurting. Hence, the patient was given intravenous Lexiscan Under the supervision of an supervision of an attending staff, as per standard protocol. Baseline blood pressure 114/70. Peak blood pressure 142/80. Baseline rhythm was sinus with heart rate about 59. Maximum heart rate about 107 beats per minute. During stress, there were no convincing ischemic changes seen. According to the midlevel, the patient has frequent PVCs and PACs at rest, but the rhythm strips available to me, I do not see it. No sustained ventricular tachycardia was recorded. RAW DATA: There is increased subdiaphragmatic activity. GATED STUDY: Resting LV ejection fraction reported to be 51 percent and stress, 50 percent, with a resting end-diastolic volume 194 mL suggestive of dilated LV. TID ratio 0.96, which is within normal limits. However, lung/heart ratio 0.69, which is abnormal, suggestive of elevated LV filling pressure. There appears to be hypokinesis of the apex, septum, as well as mid to distal anterior wall. MYOCARDIAL PERFUSION: Please note, there are no stress prone images. Stress supine and resting supine images were compared to each other. There appears to be predominantly fixed, large size, moderate to severely decreased perfusion of anterior wall extending into the apex, as well as the entire anteroseptum and distal inferior wall with extension into the mid to distal inferolateral wall. Resting studies revealed almost similar perfusion defect, but only mildly decreased perfusion in the mid to distal inferior lateral wall. CONCLUSION: This is an abnormal myocardial perfusion study consistent with large size infarction involving the anterior wall, apex, entire anterior septum, as well as distal inferior wall and mild infarction of distal inferolateral wall with mild tres-infarct ischemia involving mid inferior lateral wall, as well. Left ventricle is dilated. Lung/heart ratio 0.69, suggestive of elevated left ventricular filling pressure. Resting ejection fraction of 51 percent and stress ejection fraction of 50 percent. Jason Ty - REGLA/sreedhar/anastasiya doc#: [id number]/job#: [id number] dd: 06/01/2021 17:11:00 dt: 06/01/2021 18:29:00 DICTATING MD/COPIES TO: Vera Kirby MD COPIES MNE: DION;
== END ==
PROVIDERS: Family Provider Family Medicine; PCP Family Medicine; Referring Provider Specialist; Visit Provider Specialist
DX: R94.39 Abnormal result of other cardiovascular function study (principal); I25.118 Atherosclerotic heart disease of native coronary artery with other forms of angina pectoris; R06.02 Shortness of breath; I48.0 Paroxysmal atrial fibrillation; I25.2 Old myocardial infarction; Z95.5 Presence of coronary angioplasty implant and graft
CPT/HCPCS: 78452; 87635; 93017; A9502; J2785

== ENCOUNTER → 2021-08-26 14:12 | Outpatient (CLI) | payer OTHER, SELFPAY ==
[2019-07-28 16:02] VITALS: BMI 31.2
--- NOTE | 2021-08-27 15:50 | DIAB.INIT ---
Addendum entered by Jamee Metz 08/27/21 16:00: Called pt today 08/27/21: He picked up new freestyle aiden applicator He is checking BG q two hours - 10p last night 400 - Midnight 375 - 3am high (>400) -Noon today fbg 249 Forgot to roll insulin *Encouraged him to roll insulin prior to mixing. Encouraged him to call provider regarding BG >250 consistently. Original Note: Initial Diabetes Education Assessment Name: Jason Ty Date: 08/26/21 Time: 230-4p Dx: Type II Diabetes Provider: Daryl Manning Preferred Learning Style: Listening, watching, reading, doing Jason presents today for initial diabetes education visit. He has seen previous taxation inspector in 2019. 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 Reports inconsistent food intake due to this. is on dialysis and seems to have a lot of health needs, ie mobility barriers. States he wants to focus more on insulin than nutrition. Eating out frequently. Cereal for dinner at times. Feels uneducated about insulin. Brought in his humlin N and R. Has not been taking Lantus over the last 5 days. ROHAN has concerns about his current inability to check BG at home (broken freestyle aiden applicator and no meter), has not been taking insulin, and is about to start a new insulin regimen. Today we spent the bulk of our time figuring out his insulin regimen and plan for freestyle aiden. He wanted to practice drawing up and mixing insulins. Discussed proper technique per pharmacy. He did not follow this technique discussed and contaminated his humilin N with R. He now cannot use this vial, though has others. Physical Activity: Not discussed today Self-Monitoring Blood Glucose: Reports h/o checking BG and brought readings to his provider, but not currently checking. Does not have a meter. Has Freestyle Aiden, but he brings the broken applicator today after an attempt at home to place sensor. He is now unable to use this applicator. Diabetes Medications: Humilin R 5 u BID Humalin N 10 u BID Pertinent Labs: HgA1c: 10.3% (06/2021), 8% (02/2021) Past Medical History: (Last Reviewed 07/30/19 @ 16:55 by ANA Rubi) Coronary artery disease Diabetes Hyperlipidemia Hypertension Intervention: This participant was very receptive. Provided appropriate educational handouts. Discussed the following topics: Completed intake assessment. Discussed barriers to care. Reviewed action of each insulin Discussed rx of insulin from provider Reviewed recs on mixing and injecting Confirmed with pharmacy while in visit technique for mixing He demonstrated technique in visit Reviewed rotation of sites and where to inject Discussed plan for BG checks. Encouraged him to purchase a meter today until his freestyle aiden applicator can be figured out. Reviewed medication inserts for home review Discussed problem solving for freestyle aiden issue and importance of SMBG with new insulin Reviewed what to do if BG >250 and what to do if BG <80 Encouraged him to call provider for increases to insulin. [facility], but provider notes does indicate provider would like a call once medication is started. Encouraged him to call this week. Will reinforce provider plan for titration. Goals: Get meter today or new freestyle applicator Start insulin as rx'd call provider Follow-up: CHER MADRIGAL follow-up in 1 week over the phone and in person in two weeks Jamee Metz RDN, ROHAN Certified Diabetes Care and Data Analyst P: [phone] Thank you for this referral
== END ==
PROVIDERS: Family Provider Family Medicine; PCP Family Medicine; Referring Provider Family Medicine; Visit Provider Family Medicine
DX: E11.9 Type 2 diabetes mellitus without complications (principal)
CPT/HCPCS: G0108

== ENCOUNTER → 2021-09-10 16:19 | Outpatient (CLI) | payer OTHER, SELFPAY ==
[2019-07-28 16:02] VITALS: BMI 31.2
--- NOTE | 2021-09-16 17:37 | DIAB.MNT ---
Diabetes Medical Nutrition Therapy Assessment Name: Jason Ty Date: 09/10/21 Time: 435-6p Dx: Type II Diabetes Jason presents for visit regarding T2DM. Last visit we reviewed his insulin regimen in detail. Today he brings BG charts for review. States he would like to cont to review insulin regimen and needed changes. Limited stage of change in terms of nutrition. States he eats so different every day that he cannot make nutrition changes. Reports high intake of take-out/restaurant food. Also feels that he cannot force himself to eat at certain times, though seems some reported food portions may be high in kcals and carbs, which may be why he can go long periods of times without eating. States his 's illness and him caring for her is the main barrier to making nutrition changes. States when he was working, he was able to maintain a schedule. Overall, avoids sugar but not carbs. Reports interest in seeing an rd lab technician. Has changed his insulin to 10u R and 15u N in the morning and 5u R and 10u N in the evening. This is primarily due to experiencing hypoglycemia with 10u R and 15u N BID. Anthropometrics: Ht: 68 Wt: 197# reported Physical Activity: Not discussed Self-Monitoring Blood Glucose: With increase in insulins BID, Jason woke with a BG of 58 and 50 on 08/30 and 09/08 respectively. Symptoms: sweaty and chills. Treated with juice. Time in range: 32% over the last 7 days per Aiden Above goal: 68% Though BG are above goal, they have come down to the 200-300s vs 300-400s. No lows since reducing HS insulin. States he is unclear on how to adjust insulins to reduce daytime hyperglycemia without hypoglycemia risk. Diabetes Medications: Humilin R 10u morning & 5u evening Humilin N 15u morning & 10u evening Pertinent Labs: HgA1c: 10.3% (06/2021), 8% (02/2021) Past Medical History: (Last Reviewed 07/30/19 @ 16:55 by ANA Rubi) Coronary artery disease Diabetes Hyperlipidemia Hypertension Nutrition Rx: Carbohydrates: Meal:45-60g Snack:15-30g Nutrition Diagnosis: - Predicted excessive carb intake r/t eating out occurrences aeb pt report and spikes in BG - Predicted excessive sodium intake r/t eating out occurrences aeb pt report - Not ready for diet changes r/t caring for his and current schedule aeb pt report Intervention: This participant was very receptive. Provided appropriate educational handouts. Discussed the following topics: Briefly discussed how reducing portions at meals may change his hunger and eating schedule, as well as BG, limited readiness for this at this time it seems Insulin action times for N and R Problem solving BG for hypoglycemia Review Rule 15 Discussing further plan with PCP and/or endo Goals: Get meter today or new freestyle applicator- met Start insulin as rx'd - met call provider - met Consider reducing pm N to 5-8 units to reduce lows in evening Increase am insulin to cover daytime hyperglcyemia [facility]. Offered follow-up, but Jsaon would like to chat with an endo before proceeding. This may be a good idea, as he seems very confused about which insulin to titrate. We did review when he is having lows and when the peak of each insulin is. It seems he is having lows in the evening at the peak of Humilin N evening dose. It seems reasonable that his provider chose this insulin, given his schedule and limited injection times. He may benefit from basal long acting /bolus short/quick insulin, given they seem to be easier to titrate, however this would require additional injections-- not sure of his potential for following such a regimen. Encouraged him to call with any questions, and this [facility] plans to call him to check-in in one week. Jamee Metz RDN, [facility] Certified Diabetes Care and Lease Administration Analyst P: [phone] Thank you for this referral
== END ==
PROVIDERS: Family Provider Family Medicine; PCP Family Medicine; Referring Provider Family Medicine; Visit Provider Family Medicine
DX: E11.9 Type 2 diabetes mellitus without complications (principal)
CPT/HCPCS: 97802

== ENCOUNTER → 2021-11-10 08:48 | Outpatient (CLI) | payer OTHER, SELFPAY ==
[2019-07-28 16:02] VITALS: BMI 31.2
--- NOTE | 2021-11-10 | DI.ECHO.S_ITS ---
[facility] +---------+ : : [address] : : : : [id number] : : : : Phone: [phone] Echocardiogram Report + + :Name: DAVID COATES Study Date: 11/10/2021 Height: 68 in : :[facility] ReadingLocation: Weight: 197 lb : : Gender: Male BSA: 2.0 m2 : :: 1940 Age: 81 yrs BP: 129/72 mmHg: :Reason For Study: ISCHEMIC CARDIOMYOPATHY : :Ordering Physician: LINDA, : :MARCELLA Performed By: Yusra Cisneros : :Referring: MARCELLA MCKEON : + + Interpretation Summary Left ventricular systolic function remains moderately impaired with an estimated ejection fraction of 35 to 40% with moderate global hypokinesis with more severe hypokinesis in the mid and distal septum, extending into the apex and the mid and distal anterior wall that appears unchanged from the previous study. Left ventricular size is borderline increased but unchanged from the previous study. While there is some contradictory data, there is likely significantly elevated filling pressures but probably unchanged compared to the previous study. The right ventricle is not well seen but grossly appears to be mildly enlarged and slightly larger compared to the previous study. Right ventricular systolic function is normal. Right ventricular systolic pressure is estimated at 44 mmHg with a CVP of 3 mmHg. There is severe left atrial enlargement that is grossly unchanged from the previous exam. There is mild right atrial enlargement that measures slightly larger compared to the previous study. There is mild mitral regurgitation that is unchanged from previous exam and mild tricuspid regurgitation that appears slightly more prominent. There is a bioprosthetic aortic valve that appears anatomically normal and well-seated. The peak transvalvular velocity is 2.8 m/s with a mean gradient of 19 mmHg, compared to 3.5 m/s and 33 mmHg, respectively, previously, and suggests probable normal prosthetic valve function. The severity ratio has increased from 0.27 up to 0.34. There is mild aortic regurgitation that is less prominent. 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 The patient was in sinus rhythm with occasional PVCs, occasionally in a bigeminal pattern during the study. Procedure: A two-dimensional transthoracic echocardiogram with color flow and Doppler was performed. The study quality was technically adequate. Comparison is made with the echocardiogram of 03/24/2021. The patient was in sinus rhythm with heart rates between 53-61 bpm during the exam. There are occasional PVCs, occasionally in a bigeminal pattern. Left Ventricle: Left ventricular size is at the upper limits of normal. The estimated left ventricular end diastolic volume is 106 ml. There is normal left ventricular wall thickness. This is unchanged compared to the previous study. Left ventricular systolic function is moderately reduced. The ejection fraction is estimated to be 35-40%. There is moderate global hypokinesis of the left ventricle. There is more severe hypokinesis in the mid and distal septum, extending into the apex and somewhat into the anterior wall. There is been no significant change since the previous study. Diastolic parameters suggest a restrictive filling pattern consistent with probable significantly elevated filling pressures. This is unchanged compared to the previous study. Right Ventricle: The right ventricle is not well visualized. The right ventricle is mildly dilated. The right ventricular systolic function is normal. This is slightly larger compared to the previous study. Atria: The left atrium is severely dilated. This is unchanged compared to the previous study. The right atrium is mildly dilated. The right atrium has mildly increased in size since the prior echo exam. The interatrial septum grossly appears intact with no obvious evidence for an atrial septal defect. There is no Doppler evidence for an interatrial shunt. Mitral Valve: There is mild to moderate mitral annular calcification. The mitral valve leaflets appear mildly thickened, but open well. There is mild mitral regurgitation. This is unchanged compared to the previous study. 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 The prosthetic aortic valve is well-seated. There is probable normal prosthetic aortic valve function. The peak aortic velocity is 2.8 m/sec. The aortic valve mean gradient is 19 mmHg. There is mild aortic regurgitation. This is less prominent compared to the previous study. Tricuspid Valve: The tricuspid valve is not well visualized, but is grossly normal. There is mild tricuspid regurgitation. This is more prominent compared to the previous study. The right ventricular systolic pressure is estimated to be at least 44 mmHg based on an estimated right atrial pressure of 3 mm Hg. Comparison with the previous study is not possible because this was unable to be assessed on the previous study. Pulmonic Valve: The pulmonic valve is not well seen, but is grossly normal. There is no pulmonic valvular regurgitation. Great Vessels: The ascending aorta is moderate-severely enlarged. This is slightly larger compared to the previous study. The IVC is of normal diameter and collapses greater than 50% with a sniff. This suggests a low right atrial pressure of 3 mm Hg. Pericardium/ Pleura There is no pericardial effusion. There is no pleural effusion. MMode/2D Measurements & Calculations LVIDd: 5.4 cm LVOT diam: 2.3 cm LVIDs: 4.5 cm asc Aorta Diam: 4.5 cm FS: 16.4 % Ao Arch Diam (Prox Trans): 2.5 cm IVSd: 0.96 cm LVPWd: 0.78 cm LV solano. diameter/BSA (cm/m^2): 2.7 LV sys. diameter/BSA (cm/m^2): 2.2 LA A2 area: 32.0 cm2 RA long axis: 6.4 cm LA A4 area: 22.4 cm2 RA area: 23.4 cm2 LA length (vol): 5.7 cm RA vol: 72.5 ml LA vol: 106.4 ml RA : 35.7 ml/m2 LA vol index: 52.4 ml/m2 IVC diam: 1.1 cm RVD1 (basal): 4.3 cm RVD2 (mid): 3.8 cm TAPSE: 2.1 cm Doppler Measurements & Calculations Ao V2 max: 283.5 cm/sec LVOT Max Tony: 84.0 cm/sec Ao V2 mean: 194.8 cm/sec LV V1 max P.8 mmHg Ao max P.1 mmHg LV V1 VTI: 21.9 cm Ao mean P.1 mmHg JANA(I,D): 1.4 cm2 Ao V2 VTI: 64.1 cm JANA(V,D): 1.2 cm2 sev ratio: 0.34 JANA indexed to BSA (cm^2/m^2): 0.69 AI P1/2t: 480.4 msec AI dec slope: 239.8 cm/sec2 MV E max tony: 93.3 cm/sec TR max tony: 318.3 cm/sec MV A max tony: 50.7 cm/sec TR max P.5 mmHg MV E/A: 1.8 PA V2 max: 87.2 cm/sec Med Peak E' Tony: 5.0 cm/sec PA V2 mean: 61.7 cm/sec E/E' med: 18.6 PA mean P.7 mmHg Lat Peak E' Tony: 7.9 cm/sec PA pr(Accel): 39.6 mmHg E/E' lat: 11.8 E/e' average: 15.2 MV dec time: 0.22 sec [facility] 90.0 ml Reading Physician:06:18 PM
== END ==
PROVIDERS: Family Provider Family Medicine; PCP Family Medicine; Referring Provider Specialist; Visit Provider Specialist
DX: I08.3 Combined rheumatic disorders of mitral, aortic and tricuspid valves (principal); I77.89 Other specified disorders of arteries and arterioles; I25.5 Ischemic cardiomyopathy; Z95.2 Presence of prosthetic heart valve
CPT/HCPCS: 93306

== ENCOUNTER 2022-02-25 11:33 | Emergency (ER) | payer OTHER, SELFPAY ==
[2019-07-28 16:02] VITALS: BMI 31.2
[2022-02-25 11:40] VITALS: BP 151/107; PULSE 71; RESP 15; TEMP 36.2; O2SAT 98; BMI 31.9
--- NOTE | 2022-02-25 12:24 | ED.EXTPRO ---
HPI - Extremity Problem General Chief complaint: Extremity Problem,Nontraumatic Stated complaint: Sent by doc- Neuropathy Time Seen by Provider: 02/25/22 12:14 Source: patient Mode of arrival: Ambulatory History of Present Illness HPI Narrative: 81-year-old male. Has a history of diabetes. Also has a history of coronary artery disease and has had a TAVR with pig valve replacement. Is here for evaluation because for the past 4 days he has had neck pain and shoulder pain. No specific injury. He has been taking his 's oxycodone because of the discomfort. The symptoms have been there most of the time over the past 4 days but not consistently. Not necessarily worse with movement or palpation. He is not having chest pain. No shortness of breath. No nausea vomiting. He states he has been having problems keeping his blood sugar under control and is scheduled to see an materials engineer in the upcoming weeks. He currently has no symptoms. He contacted his primary doctor about a refill of pain medication and was instructed to come to the emergency department for further cardiac workup. Related Data Home Medications Medication Instructions Recorded Confirmed glipizide 10 mg tablet, extended 2 tab PO QACBREAK 11/08/17 07/28/19 release 24 hr metformin 500 mg tablet 500 mg PO BIDAC 11/08/17 07/28/19 apixaban 5 mg tablet 5 mg PO BID 07/28/19 07/28/19 aspirin 81 mg tablet,delayed 81 mg PO DAILY 07/28/19 07/28/19 release (Adult Low Dose Aspirin) brimonidine 0.15 % eye drops 1 drp EYE-BOTH BID 07/28/19 07/28/19 cholecalciferol (vitamin D3) 50 2,000 unit PO DAILY 07/28/19 07/28/19 mcg (2,000 unit) tablet clopidogrel 75 mg tablet 75 mg PO DAILY 07/28/19 07/28/19 coenzyme Q10 100 mg capsule 100 mg PO DAILY 07/28/19 07/28/19 dorzolamide 2 %-timolol 0.5 % (PF) 1 drp ophthalmic (eye) BID 07/28/19 07/28/19 eye drops insulin glargine 100 unit/mL 13 unit SUBCUT BID 07/28/19 07/28/19 subcutaneous solution (Lantus U-100 Insulin) latanoprost 0.005 % eye drops 1 drp ophthalmic (eye) BEDTIME 07/28/19 07/28/19 lisinopril 2.5 mg tablet 2.5 mg PO DAILY 07/28/19 07/28/19 metoprolol succinate 25 mg 12.5 mg PO DAILY 07/28/19 07/28/19 tablet,extended release 24 hr pantoprazole 20 mg tablet,delayed 20 mg PO DAILY 07/28/19 07/28/19 release rosuvastatin 40 mg tablet 40 mg PO BEDTIME 07/28/19 07/28/19 spironolactone 25 mg tablet 12.5 mg PO DAILY 07/28/19 07/28/19 Previous Rx's Medication Instructions Recorded furosemide 20 mg tablet 20 mg PO DAILY #30 tabs 07/31/19 Allergies Allergy/AdvReac Type Severity Reaction Status Date / Time sulfamethoxazole Allergy Intermediate Verified 02/25/22 11:40 [From Bactrim] trimethoprim [From Bactrim] Allergy Intermediate Verified 02/25/22 11:40 Review of Systems Review of Systems ROS Unobtainable: All systems reviewed & are unremarkable except as noted in HPI and below Patient History Medical History (Updated 02/25/22 @ 13:58 by Junaid Denson DO) Coronary artery disease Diabetes Hyperlipidemia Hypertension Social History household members: spouse Smoking Status: Never smoker alcohol intake: never Smoking Status: Never smoker alcohol intake frequency: 0-2 drinks per day Substance Use Type: does not use Exam Initial Vital Signs Initial Vital Signs: Vital Signs Temperature 97.2 F L 02/25/22 11:40 Pulse Rate 71 02/25/22 11:40 Respiratory Rate 15 02/25/22 11:40 Blood Pressure 151/107 H 02/25/22 11:40 Pulse Oximetry 98 02/25/22 11:40 Oxygen Delivery Method 02/25/22 11:40 HENMT Head: normal to inspection and normocephalic Resp Effort & Inspection: normal respiratory effort Auscultation: clear to auscultation bilaterally Cardio Rate: regular rate Rhythm: regular rhythm GI Inspection: normal to inspection Neuro General: patient alert, patient awake and patient oriented x3 Motor: muscle tone normal throughout Sensory Exam: no sensory deficits noted Extrem Other: No tenderness to palpation of the cervical spine nor left shoulder. Full range of motion left shoulder. Course Orders Ordered: ED Orders 02/25/22 11:44 EKG-12 Lead Stat 02/25/22 12:26 XR chest 1V Stat 02/25/22 12:38 Basic Metabolic Panel Stat Complete Blood Count AUTO DIFF Stat Magnesium Stat Troponin & CK Cardiac Panel Stat Vital Signs Vital signs: Vital Signs - 8 hr 02/25/22 11:40 Temperature 97.2 F L Pulse Rate 71 Respiratory Rate 15 Blood Pressure 151/107 H Pulse Oximetry 98 Oxygen Delivery Method Room Air MDM - Extremity (Nontraumatic) Lab Data Result diagrams: 02/25/22 12:38 02/25/22 12:38 Labs: Lab Results 02/25/22 02/25/22 Range/Units 12:38 12:38 WBC 8.6 (4.5-11.0) X10^3/uL RBC 5.23 (4.5-5.9) X10^6/uL Hgb 15.7 (13.5-17.5) g/dL Hct 47.4 (41-53) % MCV 90.7 (80-100) fL MCH 30.0 (26-34) PG MCHC 33.1 (30-36) % RDW 14.4 (11.6-14.8) % Plt Count 157 (150-400) X10^3/uL Neut % (Auto) 68.5 (50-75) % Lymph % (Auto) 20.8 L (25-40) % Granite % (Auto) 9.2 (3-14) % Eos % (Auto) 1.2 L (2-4) % Baso % (Auto) 0.3 (0-2) % Neut # (Auto) 5900 (5230-7351) /uL Lymph # (Auto) 1800 (7742-1302) /uL Granite # (Auto) 800 (0-900) /uL Eos # (Auto) 100 (0-450) /uL Baso # (Auto) 0 (0-100) /uL Sodium 137 (137-145) mmol/L Potassium 4.3 (3.4-5.1) mmol/L Chloride 104 (98-107) mmol/L Carbon Dioxide 28 (22-32) mmol/L BUN 26 H (9-20) mg/dL Creatinine 1.16 (0.66-1.25) mg/dL Estimated GFR > 60 (>60) mL/min BUN/Creatinine Ratio 22.4 H (6-22) Glucose 363 H (80-110) mg/dL Calcium 8.7 (8.4-10.2) mg/dL Magnesium 1.8 (1.6-2.3) mg/dL Total Creatine Kinase 89 (55-170) U/L CK-MB (CK-2) TNP CK-MB (CK-2) Rel Index TNP Troponin I 0.034 (0.01-0.034) ng/mL Imaging Data Chest x-ray: Radiologist's Impression: [address] [address] XRay Report Signed Patient: Jason Ty MR#: [id number] : 1940 Acct:[id number] Age/Sex: 81 / M Date of Service: 02/25/22 Loc: ED Accession Number: [id number] ?? Procedure: XR chest 1V Ordering Provider: Junaid Denson D.O. PROCEDURE:? XR CHEST 1V ? INDICATIONS:? chest pain ? TECHNIQUE:? One view of the chest was acquired.? ? COMPARISON:? [facility], CR, XR CHEST 1V, 07/28/2019, 10:26. ? FINDINGS:? ? Surgical changes and devices:? None.? ? Lungs and pleura:? Lungs are clear.? No pleural effusions or pneumothorax.? ? Mediastinum:? Mediastinal contours appear normal.? Heart size is normal.? ? Bones and chest wall:? No suspicious bony lesions.? Overlying soft tissues appear unremarkable.? ? IMPRESSION:? No acute cardiopulmonary abnormality. ? ? ? Dictated by: Aiden Herron M.D. on 02/25/2022 at 13:26 ? ? Approved by: Aiden Herron M.D. on 02/25/2022 at 13:27?? ECG Data Attestation EKG: I personally reviewed and interpreted this ECG as follows: Interpretation: Sinus rhythm Ventricular rate is 65 First-degree AV block pr interval 210 milliseconds Occasional PAC Left axis deviation MDM Narrative Medical decision making narrative: EKG is unremarkable chest x-ray is unremarkable. Patient does have a history of coronary artery disease had a valve replacement. He is also diabetic. His symptoms today are very consistent with neuropathy/radiculopathy from the cervical spine although given his significant cardiac history we did discuss the potential of his symptoms being caused by his heart. We did discuss his troponin today. We do not have a troponin in our system since the time where he had his acute DC several unsure whether not the troponin level today is baseline for him. We discussed staying in the emergency department and repeating the troponin level and a couple hours. Discussed the risks and benefits of this. Patient states he has to leave because he has to drive his to dialysis. He understands the risks and benefits of leaving. He understands that repeating a troponin could build the picture that his symptoms today are musculoskeletal verses potential cardiac in origin. Patient is alert oriented x3. GCS of 15. In my opinion has capacity to make decisions. He opted to discharge home and contact his infection control specialist and also his primary doctor. He was given strict return precautions. He expressed understanding and agreement. Discharge Plan Departure Patient Disposition: Home Clinical Impression: Neuropathy Instructions: DI for Peripheral Neuropathy Activity Restrictions/Additional Instructions: I do recommend that you continue to take all of your medications as directed and contact your primary doctor and also your infection control specialist for a follow-up. Return to the emergency department for any new or worsening symptoms. Prescriptions: No Action metformin 500 mg tablet 500 mg PO BIDAC Label Comments: take 1 tablet by mouth twice a day BEFORE MEALS glipizide 10 mg tablet extended release 24hr 2 tab PO QACBREAK latanoprost 0.005 % Drops 1 drp OPHTHALMIC (EYE) BEDTIME Lantus U-100 Insulin 100 unit/mL Solution 13 unit SUBCUT BID aspirin [Adult Low Dose Aspirin] 81 mg Tablet,Delayed Release (Dr/Ec) 81 mg PO DAILY spironolactone 25 mg Tablet 12.5 mg PO DAILY pantoprazole 20 mg Tablet,Delayed Release (Dr/Ec) 20 mg PO DAILY metoprolol succinate 25 mg Tablet Extended Release 24 Hr 12.5 mg PO DAILY lisinopril 2.5 mg Tablet 2.5 mg PO DAILY brimonidine 0.15 % Drops 1 drp EYE-BOTH BID coenzyme Q10 100 mg Capsule 100 mg PO DAILY rosuvastatin 40 mg Tablet 40 mg PO BEDTIME apixaban 5 mg Tablet 5 mg PO BID dorzolamide-timolol (PF) 2-0.5 % Drops 1 drp OPHTHALMIC (EYE) BID clopidogrel 75 mg Tablet 75 mg PO DAILY cholecalciferol (vitamin D3) 2,000 unit Tablet 2,000 unit PO DAILY furosemide 20 mg tablet 20 mg PO DAILY Qty: 30 1RF Rx Instructions: please take in am if weight increased greater than 2 pounds over 1-2 days Referrals: Ian Manning MD [Primary Care Provider] - Visit Report Forms: Patient Portal/API
--- NOTE | 2022-02-25 12:26 | DI.RAD.S_ITS ---
PROCEDURE: XR CHEST 1V INDICATIONS: chest pain TECHNIQUE: One view of the chest was acquired. COMPARISON: , CR, XR CHEST 1V, 07/28/2019, 10:26. FINDINGS: Surgical changes and devices: None. Lungs and pleura: Lungs are clear. No pleural effusions or pneumothorax. Mediastinum: Mediastinal contours appear normal. Heart size is normal. Bones and chest wall: No suspicious bony lesions. Overlying soft tissues appear unremarkable. IMPRESSION: No acute cardiopulmonary abnormality. Dictated by: Aiden Herron M.D. on 02/25/2022 at 13:26 Approved by: Aiden Herron M.D. on 02/25/2022 at 13:27
[2022-02-25 12:49] LABS: Add Manual Diff / Slide Review NO; Basophils Absolute Auto 0 /uL (0-100); Basophils Percent Auto 0.3 % (0-2); Eosinophils Absolute Auto 100 /uL (0-450); Eosinophils Percent Auto 1.2 % (2-4); Hematocrit 47.4 % (41-53); Hemoglobin 15.7 g/dL (13.5-17.5); Lymphocytes Absolute Auto 1800 /uL (1100-4500); Lymphocytes Percent Auto 20.8 % (25-40); Mean Corpuscular HGB Conc 33.1 % (30-36); Mean Corpuscular Volume 90.7 fL (80-100); Monocytes Absolute Auto 800 /uL (0-900); Monocytes Percent Auto 9.2 % (3-14); Neutrophils Absolute Auto 5900 /uL (1500-7000); Neutrophils Percent Auto 68.5 % (50-75); Platelet Count 157 X10^3/uL (150-400); Red Blood Cell Count 5.23 X10^6/uL (4.5-5.9); Red Cell Distribution Width 14.4 % (11.6-14.8); White Blood Cell Count 8.6 X10^3/uL (4.5-11.0)
[2022-02-25 13:23] LABS: BUN Creatinine Ratio 22.4 (6-22); Blood Urea Nitrogen 26 mg/dL (9-20); Calcium 8.7 mg/dL (8.4-10.2); Carbon Dioxide 28 mmol/L (22-32); Chloride 104 mmol/L (98-107); Creatine Kinase 89 U/L (55-170); Estimated Glomerular Filt Rate > 60 mL/min (>60); Glucose 363 mg/dL (80-110); HEMOLYSIS 16 (0-50); Magnesium 1.8 mg/dL (1.6-2.3); Potassium 4.3 mmol/L (3.4-5.1); Sodium 137 mmol/L (137-145)
[2022-02-25 13:34] LABS: Troponin I 0.034 ng/mL (0.01-0.034)
== END 2022-02-25 14:08 | disposition home or self-care (01) ==
PROVIDERS: Emergency Provider Emergency Medicine; Family Provider Family Medicine; PCP Family Medicine
DX: G62.9 Polyneuropathy, unspecified (principal); R07.9 Chest pain, unspecified; Z95.5 Presence of coronary angioplasty implant and graft
CPT/HCPCS: 36415; 71045; 80048; 82550; 83735; 84484; 85025; 93005; 99281; 99284

== ENCOUNTER → 2022-04-24 09:31 | Outpatient (CLI) | payer OTHER, SELFPAY ==
[2019-07-28 16:02] VITALS: BMI 31.2
[2022-04-24 13:50] LABS: Hemoglobin A1C% w Est Avg Glu 9.7 % (4.0-6.0)
[2022-04-24 13:53] LABS: Alanine Aminotransferase 27 IU/L (<50); Albumin 3.5 g/dL (3.5-5.0); Alkaline Phosphatase 47 U/L (38-126); Aspartate Aminotransferase 29 IU/L (17-59); BUN Creatinine Ratio 18.8 (6-22); Bilirubin Total 0.6 mg/dL (0.2-1.3); Blood Urea Nitrogen 21 mg/dL (9-20); Calcium 8.6 mg/dL (8.4-10.2); Carbon Dioxide 25 mmol/L (22-32); Chloride 107 mmol/L (98-107); Cholesterol 113 mg/dL (140-199); Estimated Glomerular Filt Rate > 60 mL/min (>60); Globulin 3.5 g/dL (1.7-4.1); Glucose 89 mg/dL (80-110); HDL Cholesterol 37 mg/dL (40-60); HEMOLYSIS < 15 (0-50); LDL Cholesterol Calculated 61 mg/dL (<100); Sodium 141 mmol/L (137-145); Triglycerides 77 mg/dL (35-150)
[2022-04-24 17:28] LABS: Microalbumi Creatinin Ratio Ur 98.3 ug/mg CR (<30)
== END ==
PROVIDERS: Family Provider Family Medicine; PCP Family Medicine; Referring Provider Internal Medicine Endocrinology, Diabetes & Metabolism; Visit Provider Internal Medicine Endocrinology, Diabetes & Metabolism
DX: E11.51 Type 2 diabetes mellitus with diabetic peripheral angiopathy without gangrene (principal); Z79.4 Long term (current) use of insulin
CPT/HCPCS: 36415; 80053; 80061; 82043; 82570; 83036

== ENCOUNTER 2022-04-28 08:00 | Outpatient (RCR) | payer OTHER, SELFPAY ==
[2019-07-28 16:02] VITALS: BMI 31.2
--- NOTE | 2022-05-03 09:11 | PT-OP ANOTE ---
cancelled due to in ER, need pain clinic, requests cancel all PT appointments
--- NOTE | 2022-05-03 09:11 | PT.OPDS ---
Current Diagnoses Cervicalgia (04/28/22) Visit Care Team Role Provider Type Ian Manning MD Attending Provider Physician Family Provider Primary Care Provider Referring Provider Specialty: Family Practice Address: [address] [place] [address], [address], [place], [place], [facility] Email: [email or web address] Visit Number Visit Number 1 Discharge Summary PT-OP-B Current Condition Start: 04/26/22 16:04 Freq: Status: Active Protocol: Document 04/28/22 08:14 [facility] (Rec: 04/28/22 09:08 [facility] [id number]) Current Condition History of Current Condition Onset Date 1 month Current Complaints right sided low back pain, neck pain History of Current Condition over 1 month ago woke up with left sided neck pain, has had before, one vertebrae felt out of place, felt paresthesia down left UE. Saw Dr. Manning, recommended therapy and wrote prescription for Hydrocodone. Had 3 day supply, couldn't get therapy for 1 month. Has been taking his 's, decreases pain 50%. Neck pain has now largely subsided, still getting paresthesia down left UE. Now low back right side has become excrutiating. States in 1973 woke up laying on stomach with severe neck pain and chiropractor helpful in decreasing pain eventually. Has also had PT for LBP and states it was helpful. Now limited in walking due to pain like a knife sticking into his back. Using straight cane on right side, not receptive to adjustment of cane height. Not currently doing any regular exercise program. is in care center in [place], spends a lot of time sitting at computer, in car, or with . Mattress is 30 years old. Prior Treatments and Tests Prior TIA's affecting whole right side, stopped after 30 days. Was 46 y/o. 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 Current Functional Impairments (Reported) Functional Limitations- ADL's painful Functional Limitations- Mobility/Gait painful Personal Factors Other Personal Factors That May Effect No current exercise program Therapy/Recovery PT-OP-C Subjective Start: 10/31/22 16:04 Freq: Status: Active Protocol: Document 04/28/22 08:14 [facility] (Rec: 04/29/22 11:08 [facility] [id number]) Patient Questionnaires Oswestry Low Back Index Oswestry Score 56 OP-PT Pain Assessment Pain Assessment Grid Paper Pain Assessment Grid Completed Yes Location right lumbar spine Intensity 6 Description Aching,Burning,Pinching,Spasm, Stabbing,Tender Frequency Frequent Pain Aggravating Factors Position,Activity,Standing, Walking,Bending Pain Alleviating Factors Medication Pain Behaviors Pain Behaviors Facial Grimacing,Guarding, Restlessness Comments Pain Comments leans to left in sitting PT-OP-G Mobility & Gait Start: 04/26/22 16:04 Freq: Status: Active Protocol: Document 04/28/22 08:14 [facility] (Rec: 04/29/22 11:08 [facility] [id number]) OP Mobility Evaluation Functional Movements Squats unable OP Gait Assessment Gait Gait Assistance Required: Independent Assistive Devices Assistive Device Straight Cane Orthotic/Prosthetic Devices or Brace: No Gait Deviations General Gait Pattern Antalgic Comments Gait Comments using cane on right side, instructed correct use would be in left, patient briefly tried and reported he preferred on right. Also instructed inc height would be better but he prefers fully straight arm and refused adjustment of cane. PT-OP-J Posture/Palpation/Skin Start: 04/26/22 16:04 Freq: Status: Active Protocol: Document 04/28/22 08:14 [facility] (Rec: 04/29/22 11:08 [facility] [id number]) Posture Evaluation Position Standing Head/C-Spine Posture Forward Head T-Spine Posture Increased Kyphosis L-Spine Posture Flattened Scapula Posture (L) Protracted,(R) Protracted Arm Posture (L) Internally Rotated,(R) Internally Rotated Pelvis Posture Posterior Tilted Weight Distribution Weight Shifted Left Hip Posture (L) Externally Rotated,(R) Externally Rotated Knee Posture (L) Genu Varus,(R) Genu Varus Palpation Assessment Location right lumbar spine Palpation Findings Soft Tissue Tightness, Tenderness PT-OP-K Range of Motion Start: 04/26/22 16:04 Freq: Status: Active Protocol: Document 04/28/22 08:14 [facility] (Rec: 04/29/22 11:08 [facility] [id number]) Cervical Spine Range of Motion Cervical Spine Active ROM Limitations Pain Lumbar Spine Range of Motion Lumbar Spine Active Testing Position Standing Flexion 15 Extension 0 Rotation Left 30 Rotation Right 30 Lateral Flexion Left 40 Lateral Flexion Right 20 ROM Limitations Pain PT-OP-L Special Tests Start: 04/26/22 16:04 Freq: Status: Active Protocol: Document 04/28/22 08:14 [facility] (Rec: 04/29/22 11:08 [facility] [id number]) Special Tests Lumbar Spine Special Tests Juan Test Results positive for muscle tightness Straight Leg Raise Test Results negative Hip Special Tests Armas's Compression Test Results negative ron Juan Test Results positive for muscle tightness ron Scour Test Test Results negative PT-OP-M Strength Start: 04/26/22 16:04 Freq: Status: Active Protocol: Document 04/28/22 08:14 [facility] (Rec: 04/29/22 11:08 [facility] [id number]) Trunk Strength Trunk Manual Muscle Testing Flexion 3+ Fair+ Extension 3+ Fair+ Comments painful Hip Strength Hip Manual Muscle Testing Right Flexion (L2) 4- Good- Extension (S1) 3+ Fair+ Abduction 3+ Fair+ External Rotation 4- Good- Internal Rotation 4 Good Left Flexion (L2) 4- Good- Extension (S1) 3+ Fair+ Abduction 4- Good- External Rotation 4- Good- Internal Rotation 4 Good Knee Strength Knee Manual Muscle Testing ron Flexion (S2) 4+ Good+ Extension (L3) 4+ Good+ PT-OP-T Assessment and Plan Start: 04/26/22 16:04 Freq: Status: Active Protocol: Document 05/03/22 09:10 [facility] (Rec: 05/03/22 09:10 [facility] [id number]) Physical Therapy Plan Discharge Physical Therapy Discharge Reasons Patient Request Discharge Comments in ER, need pain clinic
== END 2022-05-05 08:45 | disposition home or self-care (01) ==
LOC: PHYS 08:00
PROVIDERS: Family Provider Family Medicine; PCP Family Medicine; Referring Provider Family Medicine; Visit Provider Family Medicine
DX: M54.2 Cervicalgia (principal)
CPT/HCPCS: 97535

== ENCOUNTER 2022-05-03 07:33 | Emergency (ER) | payer OTHER, SELFPAY ==
[2019-07-28 16:02] VITALS: BMI 31.2
[2022-05-03 07:35] VITALS: BP 156/93; PULSE 70; RESP 18; TEMP 36.7; O2SAT 98; BMI 33.4
--- NOTE | 2022-05-03 07:51 | DI.RAD.S_ITS ---
PROCEDURE: XR LUMBAR SPINE 2-3V INDICATIONS: R lower back pain TECHNIQUE: 3 views of the lumbar spine were acquired. COMPARISON: [facility], , L-SPINE 2-3 VIEWS, 08/26/2015, 13:06. FINDINGS: Bones: 5 [id number] vertebrae are present. There is normal bony alignment. Degenerative endplate changes and loss of disc height throughout lumbar spine is seen. Bilateral facet arthrosis in lower lumbar spine is also seen. No vertebral body compression fractures. No suspicious bony lesions. Soft tissues: Overlying bowel gas pattern is normal. No suspicious soft tissue calcifications. IMPRESSION: No acute lumbar spine compression fracture or spondylolisthesis. Degenerative disc disease throughout lumbar spine as above. Dictated by: Amaury Kaur M.D. on 05/03/2022 at 8:18 Approved by: Amaury Kaur M.D. on 05/03/2022 at 8:18
--- NOTE | 2022-05-03 07:51 | ED.GENADULT ---
HPI - General Adult General Chief complaint: Extremity Problem,Nontraumatic Stated complaint: pain in RT hip Time Seen by Provider: 05/03/22 07:51 Source: patient Mode of arrival: Ambulatory Limitations: no limitations History of Present Illness HPI narrative: 81-year-old male who is here for evaluation of right lower back/hip discomfort. This discomfort has been present for several weeks. He is actually seen his primary doctor for it. There was not 1 specific incident that caused the discomfort. Does have a prescription for hydrocodone that was for 30 tablets which he is now out of. This is prescribed about 1 month ago. He has a referral to see Physical therapy. Had 1 physical therapy visit last Tuesday. He states this was a ?introductory ?visit. There was no therapy actually performed. He has another visit today. He states over the past couple days he feels like his symptoms are worsening. The pain medication is helping somewhat. He is not having any pain radiating down his leg. No fevers. No bowel or bladder symptoms. Related Data Home Medications Medication Instructions Recorded Confirmed glipizide 10 mg tablet, extended 2 tab PO QACBREAK 11/08/17 07/28/19 release 24 hr metformin 500 mg tablet 500 mg PO BIDAC 11/08/17 07/28/19 apixaban 5 mg tablet 5 mg PO BID 07/28/19 07/28/19 aspirin 81 mg tablet,delayed 81 mg PO DAILY 07/28/19 07/28/19 release (Adult Low Dose Aspirin) brimonidine 0.15 % eye drops 1 drp EYE-BOTH BID 07/28/19 07/28/19 cholecalciferol (vitamin D3) 50 2,000 unit PO DAILY 07/28/19 07/28/19 mcg (2,000 unit) tablet clopidogrel 75 mg tablet 75 mg PO DAILY 07/28/19 07/28/19 coenzyme Q10 100 mg capsule 100 mg PO DAILY 07/28/19 07/28/19 dorzolamide 2 %-timolol 0.5 % (PF) 1 drp ophthalmic (eye) BID 07/28/19 07/28/19 eye drops insulin glargine 100 unit/mL 13 unit SUBCUT BID 07/28/19 07/28/19 subcutaneous solution (Lantus U-100 Insulin) latanoprost 0.005 % eye drops 1 drp ophthalmic (eye) BEDTIME 07/28/19 07/28/19 lisinopril 2.5 mg tablet 2.5 mg PO DAILY 07/28/19 07/28/19 metoprolol succinate 25 mg 12.5 mg PO DAILY 07/28/19 07/28/19 tablet,extended release 24 hr pantoprazole 20 mg tablet,delayed 20 mg PO DAILY 07/28/19 07/28/19 release rosuvastatin 40 mg tablet 40 mg PO BEDTIME 07/28/19 07/28/19 spironolactone 25 mg tablet 12.5 mg PO DAILY 07/28/19 07/28/19 Previous Rx's Medication Instructions Recorded furosemide 20 mg tablet 20 mg PO DAILY #30 tabs 07/31/19 cyclobenzaprine 10 mg tablet 10 mg PO TID PRN muscle spasm #30 05/03/22 tabs hydrocodone 5 mg-acetaminophen 325 1 tab PO Q8H PRN pain #20 tabs 05/03/22 mg tablet Allergies Allergy/AdvReac Type Severity Reaction Status Date / Time sulfamethoxazole Allergy Intermediate Verified 02/25/22 11:40 [From Bactrim] trimethoprim [From Bactrim] Allergy Intermediate Verified 02/25/22 11:40 Review of Systems Constitutional Constitutional: Reports system reviewed and no additional complaints, except as documented Gastrointestinal Gastrointestinal: Reports system reviewed and no additional complaints, except as documented Genitourinary Genitourinary: Reports system reviewed and no additional complaints, except as documented Musculoskeletal Musculoskeletal: Reports system reviewed and no additional complaints, except as documented Integumentary/Breasts Skin/Breast: Reports system reviewed and no additional complaints, except as documented Neurologic Neurologic: Reports system reviewed and no additional complaints, except as documented Hematologic/Lymphatic On Anticoagulants: No Patient History Medical History (Updated 05/03/22 @ 08:51 by Junaid Denson DO) Coronary artery disease Diabetes Hyperlipidemia Hypertension Social History household members: spouse Smoking Status: Never smoker alcohol intake: never Smoking Status: Never smoker alcohol intake frequency: 0-2 drinks per day Substance Use Type: does not use Exam Initial Vital Signs Initial Vital Signs: Vital Signs Temperature 98.0 F 05/03/22 07:35 Pulse Rate 70 05/03/22 07:35 Respiratory Rate 18 05/03/22 07:35 Blood Pressure 156/93 H 05/03/22 07:35 Pulse Oximetry 98 05/03/22 07:35 Oxygen Delivery Method 05/03/22 07:35 Const General: cooperative and comfortable Resp Effort & Inspection: normal respiratory effort GI Inspection: normal to inspection Palpation: soft and No tender Back/Spine/Pelvis Other: Tenderness to palpation over the location of the PSIS on the right. No midline lumbar tenderness. Extrem Other: No tenderness over the greater trochanter on the right. No groin tenderness on the right. Course Orders Ordered: ED Orders 05/03/22 07:51 XR lumbar spine 2-3V Stat Vital Signs Vital signs: Vital Signs - 8 hr 05/03/22 07:35 Temperature 98.0 F Pulse Rate 70 Respiratory Rate 18 Blood Pressure 156/93 H Pulse Oximetry 98 Oxygen Delivery Method Room Air Medical Decision Making Imaging Data lumbar spine: Radiologist's Impression: [place] [address] XRay Report Signed Patient: Jason Ty MR#: [id number] : 1940 Acct:[id number] Age/Sex: 81 / M Date of Service: 05/03/22 Loc: ED Accession Number: [id number] ?? Procedure: XR lumbar spine 2-3V Ordering Provider: Junaid Denson D.O. PROCEDURE:? XR LUMBAR SPINE 2-3V ? INDICATIONS:? R lower back pain ? TECHNIQUE:? 3 views of the lumbar spine were acquired.? ? COMPARISON:? [facility], , L-SPINE 2-3 VIEWS, 08/26/2015, 13:06. ? FINDINGS:? ? Bones:? 5 [id number] vertebrae are present.? There is normal bony alignment.? Degenerative endplate changes and loss of disc height throughout lumbar spine is seen.? Bilateral facet arthrosis in lower lumbar spine is also seen.? No vertebral body compression fractures.? No suspicious bony lesions.? ? Soft tissues:? Overlying bowel gas pattern is normal.? No suspicious soft tissue calcifications.? ? ? IMPRESSION:? No acute lumbar spine compression fracture or spondylolisthesis.? Degenerative disc disease throughout lumbar spine as above. ? ? Dictated by: Amaury Kaur M.D. on 05/03/2022 at 8:18 ? ? Approved by: Amaury Kaur M.D. on 05/03/2022 at 8:18?? [facility] Narrative Medical decision making narrative: X-ray shows no signs of fracture. His discomfort is fairly localized over the PSIS on the right. I do suspect musculoskeletal in origin. Will sent home with muscle relaxers as he states this has helped him in the past. Will have him contact his primary doctor for a follow-up in to discuss any further workup. He expressed understanding and agreement with plan. Discharge Plan Departure Patient Disposition: Home Clinical Impression: Lower back pain Instructions: Low Back Pain (Alternative Therapy), Low Back Pain Activity Restrictions/Additional Instructions: I do recommend that you take all of your medications as directed. Contact your primary doctor for a follow-up to discuss any potential further workup or evaluation or consultations. Return to the emergency department for any new symptoms. Prescriptions: New cyclobenzaprine 10 mg tablet 10 mg PO TID PRN (Reason: muscle spasm) Qty: 30 0RF hydrocodone-acetaminophen 5-325 mg tablet 1 tab PO Q8H PRN (Reason: pain) Qty: 20 0RF No Action metformin 500 mg tablet 500 mg PO BIDAC Label Comments: take 1 tablet by mouth twice a day BEFORE MEALS glipizide 10 mg tablet extended release 24hr 2 tab PO QACBREAK latanoprost 0.005 % Drops 1 drp OPHTHALMIC (EYE) BEDTIME Lantus U-100 Insulin 100 unit/mL Solution 13 unit SUBCUT BID aspirin [Adult Low Dose Aspirin] 81 mg Tablet,Delayed Release (Dr/Ec) 81 mg PO DAILY spironolactone 25 mg Tablet 12.5 mg PO DAILY pantoprazole 20 mg Tablet,Delayed Release (Dr/Ec) 20 mg PO DAILY metoprolol succinate 25 mg Tablet Extended Release 24 Hr 12.5 mg PO DAILY lisinopril 2.5 mg Tablet 2.5 mg PO DAILY brimonidine 0.15 % Drops 1 drp EYE-BOTH BID coenzyme Q10 100 mg Capsule 100 mg PO DAILY rosuvastatin 40 mg Tablet 40 mg PO BEDTIME apixaban 5 mg Tablet 5 mg PO BID dorzolamide-timolol (PF) 2-0.5 % Drops 1 drp OPHTHALMIC (EYE) BID clopidogrel 75 mg Tablet 75 mg PO DAILY cholecalciferol (vitamin D3) 2,000 unit Tablet 2,000 unit PO DAILY furosemide 20 mg tablet 20 mg PO DAILY Qty: 30 1RF Rx Instructions: please take in am if weight increased greater than 2 pounds over 1-2 days Referrals: Ian Manning MD [Primary Care Provider] -
[2022-05-03 08:56] VITALS: BP 132/63; PULSE 58; RESP 14; O2SAT 96
== END 2022-05-03 09:09 | disposition home or self-care (01) ==
PROVIDERS: Emergency Provider Emergency Medicine; Family Provider Family Medicine; PCP Family Medicine
DX: M54.50 Low back pain, unspecified (principal)
CPT/HCPCS: 72100; 99281; 99283

== ENCOUNTER 2022-06-02 10:53 | Emergency (ER) | payer OTHER, SELFPAY ==
[2019-07-28 16:02] VITALS: BMI 31.2
[2022-06-02] VITALS (12 sets, daily range): BP systolic 96–131; BP diastolic 55–89; PULSE 60–131; RESP 16–38; TEMP 36.4; O2SAT 95–100; BMI 31.9
--- NOTE | 2022-06-02 11:01 | DI.RAD.S_ITS ---
PROCEDURE: XR CHEST 1V INDICATIONS: chest pain TECHNIQUE: One view of the chest was acquired. COMPARISON: Located Within [facility], CR, XR CHEST 1V, 02/25/2022, 12:40. FINDINGS: Surgical changes and devices: None. Lungs and pleura: Lungs are clear. No pleural effusions or pneumothorax. Mediastinum: Mediastinal contours appear normal. Heart size is normal. Bones and chest wall: No suspicious bony lesions. Overlying soft tissues appear unremarkable. IMPRESSION: No acute pulmonary process. Dictated by: Carmen Mckeon M.D. on 06/02/2022 at 12:04 Approved by: Carmen Mckeon M.D. on 06/02/2022 at 12:05
[2022-06-02 11:39] LABS: Add Manual Diff / Slide Review NO; Basophils Absolute Auto 0 /uL (0-100); Basophils Percent Auto 0.3 % (0-2); Eosinophils Absolute Auto 0 /uL (0-450); Eosinophils Percent Auto 0.4 % (2-4); Hematocrit 50.3 % (41-53); Hemoglobin 16.5 g/dL (13.5-17.5); Lymphocytes Absolute Auto 2300 /uL (1100-4500); Lymphocytes Percent Auto 21.9 % (25-40); Mean Corpuscular HGB Conc 32.9 % (30-36); Mean Corpuscular Hemoglobin 29.4 PG (26-34); Mean Corpuscular Volume 89.4 fL (80-100); Monocytes Absolute Auto 1100 /uL (0-900); Monocytes Percent Auto 10.9 % (3-14); Neutrophils Absolute Auto 6800 /uL (1500-7000); Neutrophils Percent Auto 66.5 % (50-75); Platelet Count 265 X10^3/uL (150-400); Red Blood Cell Count 5.62 X10^6/uL (4.5-5.9); Red Cell Distribution Width 13.8 % (11.6-14.8); White Blood Cell Count 10.3 X10^3/uL (4.5-11.0)
[2022-06-02 11:44] LABS: Prothrombin Time 11.8 SECONDS (10.1-12.7)
[2022-06-02 11:47] LABS: PTT Partial Thromboplastin Tim 33 SECONDS (26-36)
[2022-06-02 11:50] LABS: Alanine Aminotransferase 47 IU/L (<50); Albumin 3.7 g/dL (3.5-5.0); Alkaline Phosphatase 60 U/L (38-126); Aspartate Aminotransferase 41 IU/L (17-59); BUN Creatinine Ratio 19.7 (6-22); Bilirubin Total 0.9 mg/dL (0.2-1.3); Blood Urea Nitrogen 24 mg/dL (9-20); Calcium 8.5 mg/dL (8.4-10.2); Carbon Dioxide 27 mmol/L (22-32); Chloride 101 mmol/L (98-107); Creatine Kinase 101 U/L (55-170); Estimated Glomerular Filt Rate 59 mL/min (>60); Globulin 3.6 g/dL (1.7-4.1); Glucose 255 mg/dL (80-110); HEMOLYSIS 40 (0-50); Lipase 78 U/L (23-300); Magnesium 1.9 mg/dL (1.6-2.3); Potassium 4.7 mmol/L (3.4-5.1); Sodium 136 mmol/L (137-145); Total Protein 7.3 g/dL (6.3-8.2)
[2022-06-02 12:01] LABS: Troponin I 0.048 ng/mL (0.01-0.034)
[2022-06-02 12:05] LABS: CKMB % Relative Index 2.4 % (1.5-5.0); Creatine Kinase MB 2.41 ng/mL (<2.37)
--- NOTE | 2022-06-02 14:03 | ED_ITS ---
HPI - Chest Pain General Chief Complaint: Chest Pain Stated Complaint: poss cardiac symptoms Time Seen by Provider: 06/02/22 12:19 Source: patient Mode of arrival: Ambulatory Limitations: no limitations History of Present Illness HPI narrative: Patient awoke late this morning, about 9:00 a.m.. He did not feel well. He had minor chest discomfort, no palpitations, no dyspnea. He is no dizziness. He felt weak. 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 He is no edema, no orthopnea. He denies recent illness. He is no headache, sore throat, cough or fever. He is recently had COVID-19. Related Data Home Medications Medication Instructions Recorded Confirmed glipizide 10 mg tablet, extended 2 tab PO QACBREAK 11/08/17 07/28/19 release 24 hr metformin 500 mg tablet 500 mg PO BIDAC 11/08/17 07/28/19 apixaban 5 mg tablet 5 mg PO BID 07/28/19 07/28/19 aspirin 81 mg tablet,delayed 81 mg PO DAILY 07/28/19 07/28/19 release (Adult Low Dose Aspirin) brimonidine 0.15 % eye drops 1 drp EYE-BOTH BID 07/28/19 07/28/19 cholecalciferol (vitamin D3) 50 2,000 unit PO DAILY 07/28/19 07/28/19 mcg (2,000 unit) tablet clopidogrel 75 mg tablet 75 mg PO DAILY 07/28/19 07/28/19 coenzyme Q10 100 mg capsule 100 mg PO DAILY 07/28/19 07/28/19 dorzolamide 2 %-timolol 0.5 % (PF) 1 drp ophthalmic (eye) BID 07/28/19 07/28/19 eye drops insulin glargine 100 unit/mL 13 unit SUBCUT BID 07/28/19 07/28/19 subcutaneous solution (Lantus U-100 Insulin) latanoprost 0.005 % eye drops 1 drp ophthalmic (eye) BEDTIME 07/28/19 07/28/19 lisinopril 2.5 mg tablet 2.5 mg PO DAILY 07/28/19 07/28/19 metoprolol succinate 25 mg 12.5 mg PO DAILY 07/28/19 07/28/19 tablet,extended release 24 hr pantoprazole 20 mg tablet,delayed 20 mg PO DAILY 07/28/19 07/28/19 release rosuvastatin 40 mg tablet 40 mg PO BEDTIME 07/28/19 07/28/19 spironolactone 25 mg tablet 12.5 mg PO DAILY 07/28/19 07/28/19 Previous Rx's Medication Instructions Recorded furosemide 20 mg tablet 20 mg PO DAILY #30 tabs 07/31/19 cyclobenzaprine 10 mg tablet 10 mg PO TID PRN muscle spasm #30 05/03/22 tabs hydrocodone 5 mg-acetaminophen 325 1 tab PO Q8H PRN pain #20 tabs 05/03/22 mg tablet apixaban 5 mg tablet 5 mg PO BID #60 tabs 06/02/22 metoprolol tartrate 25 mg tablet 25 mg PO BID #60 tabs 06/02/22 Allergies Allergy/AdvReac Type Severity Reaction Status Date / Time sulfamethoxazole Allergy Intermediate Verified 06/02/22 10:56 [From Bactrim] trimethoprim [From Bactrim] Allergy Intermediate Verified 06/02/22 10:56 Review of Systems Review of Systems ROS Unobtainable: All systems reviewed & are unremarkable except as noted in HPI and below Constitutional Constitutional: Reports as per HPI, Denies body ache(s), Denies malaise and Denies night sweats ENT Ears, Nose, Mouth, and Throat: Denies sinus pain, Denies sinus pressure and Denies sore throat Cardiovascular Cardiovascular: Reports as per HPI Respiratory Respiratory: Reports as per HPI Gastrointestinal Gastrointestinal: Denies abdominal pain and Denies nausea Genitourinary Genitourinary: Reports system reviewed and no additional complaints, except as documented Musculoskeletal Musculoskeletal: Denies back pain, Denies arthralgias and Denies numbness Integumentary/Breasts Skin/Breast: Reports system reviewed and no additional complaints, except as documented Neurologic Neurologic: Denies numbness Endocrine Endocrine: Reports system reviewed and no additional complaints, except as documented Hematologic/Lymphatic On Anticoagulants: Yes Patient History Medical History Coronary artery disease Diabetes Hyperlipidemia Hypertension Social History household members: spouse Smoking Status: Never smoker alcohol intake: never Smoking Status: Never smoker alcohol intake frequency: 0-2 drinks per day Substance Use Type: does not use Exam Initial Vital Signs Initial Vital Signs: Vital Signs Temperature 97.5 F L 06/02/22 10:56 Pulse Rate 131 H 06/02/22 10:56 Respiratory Rate 16 06/02/22 10:56 Blood Pressure 131/89 06/02/22 10:56 Pulse Oximetry 100 06/02/22 10:56 Oxygen Delivery Method 06/02/22 10:56 Const General: cooperative, healthy appearing and comfortable Nutritional Appearance: average body habitus [facility] Head: normal to inspection, normocephalic and atraumatic Mouth: oral mucosae normal Eyes General: Yes appearance normal, both eyes and all related structures Neck Neck: No JVD Thyroid: thyroid normal Chest Chest: normal inspection of the chest Resp Effort & Inspection: normal respiratory effort Auscultation: clear to auscultation bilaterally Cardio Rate: regular rate Rhythm: regular rhythm Heart Sounds: S1 normal, S2 normal, no click and no murmurs Pulses: brachial pulses present GI Inspection: normal to inspection Palpation: soft and No tender Back/Spine/Pelvis Back: normal to inspection Skin General: no rashes or lesions noted Neuro General: patient alert Motor: muscle tone normal throughout Extrem General: normal to inspection, full ROM, no pedal edema and no calf tenderness Psych Appearance: grossly normal Course Course Course Narrative: The patient has known CAD. He arrives with tachycardia, junctional rhythm. He has AFib. I was able to convert him back to normal sinus rhythm with IV metoprolol. The medical record indicates he is on apixaban. Patient is not currently taking any medication. Consulted Cardiology, Dr. Kirby. In addition to the medications, the minimal elevation of troponin was discussed. This is not felt to represent an acute cardiac event, more likely LV strain with the arrhythmia. 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 His metoprolol dose has been increased 25 mg b.i.d.. He is feeling well at the time of discharge. Orders Ordered: ED Orders 06/02/22 14:16 Troponin I Stat EKG-12 Lead Stat 06/02/22 15:24 EKG-12 Lead Stat Discontinued Medications Apixaban (Apixaban 5 Mg Tablet) 5 mg PO NOW ONE Stop: 06/02/22 17:09 Last Admin: 06/02/22 17:11 Dose: 5 mg Documented By: MILLICENT Aspirin (Aspirin 81 Mg Chew Tab) 324 mg PO NOW ONE Stop: 06/02/22 14:51 Last Admin: 06/02/22 15:05 Dose: 324 mg Documented By: MILLICENT Sodium Chloride (Normal Saline 0.9%) 1,000 mls @ 250 mls/hr IV CONT JOHN Last Infusion: 06/02/22 18:11 Dose: 0 mls/hr Documented By: Admin: 06/02/22 15:18 Dose: 250 mls/hr Documented By: MILLICENT Metoprolol Tartrate (Metoprolol Tartrate 5 Mg/5 Ml Inj) 5 mg IV Q5M [facility] Stop: 06/02/22 15:11 Last Admin: 06/02/22 15:24 Dose: Not Given Documented By: Admin: 06/02/22 15:23 Dose: Not Given Documented By: Admin: 06/02/22 15:05 Dose: 5 mg Documented By: MILLICENT Metoprolol Tartrate (Metoprolol Ir 25 Mg Tablet) 25 mg PO NOW ONE Stop: 06/02/22 15:34 Last Admin: 06/02/22 15:49 Dose: 25 mg Documented By: JORGE Vital Signs Vital signs: Vital Signs - 8 hr 06/02/22 15:18 06/02/22 15:23 06/02/22 14:20 Pulse Rate 112 H 81 122 H Respiratory Rate 38 H Blood Pressure 96/63 121/79 124/86 Pulse Oximetry 97 95 98 Oxygen Delivery Method Room Air Room Air Room Air 06/02/22 14:45 06/02/22 15:00 06/02/22 15:15 Pulse Rate 122 H 124 H 116 H Respiratory Rate 30 H 30 H 27 H Blood Pressure Pulse Oximetry 98 98 97 Oxygen Delivery Method Room Air Room Air Room Air 06/02/22 15:30 06/02/22 15:45 06/02/22 16:05 Pulse Rate 77 76 76 Respiratory Rate 29 H 25 H 30 H Blood Pressure 105/74 Pulse Oximetry 98 97 98 Oxygen Delivery Method Room Air Room Air Room Air 06/02/22 17:44 Pulse Rate 60 Respiratory Rate 20 Blood Pressure 117/55 L Pulse Oximetry 95 Oxygen Delivery Method Room Air [facility] - Chest Pain Lab Data Result diagrams: 06/02/22 11:08 06/02/22 11:08 Labs: Lab Results 06/02/22 06/02/22 06/02/22 Range/Units 11:08 11:08 11:08 WBC 10.3 (4.5-11.0) X10^3/uL RBC 5.62 (4.5-5.9) X10^6/uL Hgb 16.5 (13.5-17.5) g/dL Hct 50.3 (41-53) % MCV 89.4 (80-100) fL MCH 29.4 (26-34) PG MCHC 32.9 (30-36) % RDW 13.8 (11.6-14.8) % Plt Count 265 (150-400) X10^3/uL Neut % (Auto) 66.5 (50-75) % Lymph % (Auto) 21.9 L (25-40) % [place] % (Auto) 10.9 (3-14) % Eos % (Auto) 0.4 L (2-4) % Baso % (Auto) 0.3 (0-2) % Neut # (Auto) 6800 (8834-5575) /uL Lymph # (Auto) 2300 (0842-4791) /uL [place] # (Auto) 1100 H (0-900) /uL Eos # (Auto) 0 (0-450) /uL Baso # (Auto) 0 (0-100) /uL PT 11.8 (10.1-12.7) SECONDS INR 1.0 (0.9-1.3) APTT 33 (26-36) SECONDS Sodium 136 L (137-145) mmol/L Potassium 4.7 (3.4-5.1) mmol/L Chloride 101 (98-107) mmol/L Carbon Dioxide 27 (22-32) mmol/L BUN 24 H (9-20) mg/dL Creatinine 1.22 (0.66-1.25) mg/dL Estimated GFR 59 L (>60) mL/min BUN/Creatinine Ratio 19.7 (6-22) Glucose 255 H (80-110) mg/dL Calcium 8.5 (8.4-10.2) mg/dL Magnesium 1.9 (1.6-2.3) mg/dL Total Bilirubin 0.9 (0.2-1.3) mg/dL AST 41 (17-59) IU/L ALT 47 (<50) IU/L Alkaline Phosphatase 60 (38-126) U/L Total Creatine Kinase 101 (55-170) U/L CK-MB (CK-2) 2.41 H (<2.37) ng/mL CK-MB (CK-2) Rel Index 2.4 (1.5-5.0) % Troponin I 0.048 H (0.01-0.034) ng/mL Total Protein 7.3 (6.3-8.2) g/dL Albumin 3.7 (3.5-5.0) g/dL Globulin 3.6 (1.7-4.1) g/dL Albumin/Globulin Ratio 1.0 (1.0-2.8) Lipase 78 (23-300) U/L 06/02/22 Range/Units 14:16 WBC (4.5-11.0) X10^3/uL RBC (4.5-5.9) X10^6/uL Hgb (13.5-17.5) g/dL Hct (41-53) % MCV (80-100) fL MCH (26-34) PG MCHC (30-36) % RDW (11.6-14.8) % Plt Count (150-400) X10^3/uL Neut % (Auto) (50-75) % Lymph % (Auto) (25-40) % [place] % (Auto) (3-14) % Eos % (Auto) (2-4) % Baso % (Auto) (0-2) % Neut # (Auto) (3239-3130) /uL Lymph # (Auto) (8278-1378) /uL [place] # (Auto) (0-900) /uL Eos # (Auto) (0-450) /uL Baso # (Auto) (0-100) /uL PT (10.1-12.7) SECONDS INR (0.9-1.3) APTT (26-36) SECONDS Sodium (137-145) mmol/L Potassium (3.4-5.1) mmol/L Chloride (98-107) mmol/L Carbon Dioxide (22-32) mmol/L BUN (9-20) mg/dL Creatinine (0.66-1.25) mg/dL Estimated GFR (>60) mL/min BUN/Creatinine Ratio (6-22) Glucose (80-110) mg/dL Calcium (8.4-10.2) mg/dL Magnesium (1.6-2.3) mg/dL Total Bilirubin (0.2-1.3) mg/dL AST (17-59) IU/L ALT (<50) IU/L Alkaline Phosphatase (38-126) U/L Total Creatine Kinase (55-170) U/L CK-MB (CK-2) (<2.37) ng/mL CK-MB (CK-2) Rel Index (1.5-5.0) % Troponin I 0.040 H (0.01-0.034) ng/mL Total Protein (6.3-8.2) g/dL Albumin (3.5-5.0) g/dL Globulin (1.7-4.1) g/dL Albumin/Globulin Ratio (1.0-2.8) Lipase (23-300) U/L Imaging Data Chest x-ray: Radiologist's Impression: No acute cardiopulmonary disease. ECG Data Attestation: I personally reviewed and interpreted this ECG as follows: (EKG 1.: Junctional rhythm rate 118 beats per minute. LVH. Old septal LA. EKG 2.: Normal sinus rhythm rate 77 beats per minute. LVH. Nonspecific ST T wave changes. No acute ST elevation.) Critical Care Time Critical Care Time Critical Care Time: No Discharge Plan Departure Patient Disposition: Home Clinical Impression: Paroxysmal A-fib Instructions: Atrial Fibrillation Activity Restrictions/Additional Instructions: I discussed her situation with Dr. Kirby, partner with your kitchen food server, Dr. Swain. Contact Dr. Swain's office for follow-up. Apixaban 5 mg 2 times daily. Metoprolol 25 mg 2 times daily. You should stop aspirin and clopidogrel now that your on apixaban. Discuss these medications with Dr. Swain. Return the ER if you develop chest discomfort, difficulty breathing, or weakness. Prescriptions: New apixaban 5 mg tablet 5 mg PO BID Qty: 60 1RF metoprolol tartrate 25 mg tablet 25 mg PO BID Qty: 60 1RF No Action metformin 500 mg tablet 500 mg PO BIDAC Label Comments: take 1 tablet by mouth twice a day BEFORE MEALS glipizide 10 mg tablet extended release 24hr 2 tab PO QACBREAK latanoprost 0.005 % Drops 1 drp OPHTHALMIC (EYE) BEDTIME Lantus U-100 Insulin 100 unit/mL Solution 13 unit SUBCUT BID aspirin [Adult Low Dose Aspirin] 81 mg Tablet,Delayed Release (Dr/Ec) 81 mg PO DAILY spironolactone 25 mg Tablet 12.5 mg PO DAILY pantoprazole 20 mg Tablet,Delayed Release (Dr/Ec) 20 mg PO DAILY metoprolol succinate 25 mg Tablet Extended Release 24 Hr 12.5 mg PO DAILY lisinopril 2.5 mg Tablet 2.5 mg PO DAILY brimonidine 0.15 % Drops 1 drp EYE-BOTH BID coenzyme Q10 100 mg Capsule 100 mg PO DAILY rosuvastatin 40 mg Tablet 40 mg PO BEDTIME apixaban 5 mg Tablet 5 mg PO BID dorzolamide-timolol (PF) 2-0.5 % Drops 1 drp OPHTHALMIC (EYE) BID clopidogrel 75 mg Tablet 75 mg PO DAILY cholecalciferol (vitamin D3) 2,000 unit Tablet 2,000 unit PO DAILY furosemide 20 mg tablet 20 mg PO DAILY Qty: 30 1RF Rx Instructions: please take in am if weight increased greater than 2 pounds over 1-2 days cyclobenzaprine 10 mg tablet 10 mg PO TID PRN (Reason: muscle spasm) Qty: 30 0RF hydrocodone-acetaminophen 5-325 mg tablet 1 tab PO Q8H PRN (Reason: pain) Qty: 20 0RF Referrals: Ian Manning MD [Primary Care Provider] - Visit Report Forms: Patient Portal/API
[2022-06-02] MEDS: ASPIRIN 81 MG CHEW TAB 324 MG PO (15:05)
[2022-06-02] MEDS: METOPROLOL TARTRATE 5 MG/5 ML INJ IV (15:05)
[2022-06-02] MEDS: SODIUM CHLORIDE 0.9% 1,000 ML 250 ML IV (15:18)
[2022-06-02] MEDS: METOPROLOL IR 25 MG TABLET PO (15:49)
[2022-06-02] MEDS: APIXABAN 5 MG TABLET PO (17:11)
== END 2022-06-02 18:13 | disposition home or self-care (01) ==
PROVIDERS: Emergency Provider Emergency Medicine; Family Provider Family Medicine; PCP Family Medicine
DX: I48.0 Paroxysmal atrial fibrillation (principal); Z79.01 Long term (current) use of anticoagulants; Z79.899 Other long term (current) drug therapy
CPT/HCPCS: 36415; 71045; 80053; 82550; 82553; 83690; 83735; 84484; 85025; 85610; 85730; 93005; 93010; 96360; 96361; 99284

== ENCOUNTER → 2022-11-08 08:56 | Outpatient (CLI) | payer OTHER, SELFPAY ==
[2019-07-28 16:02] VITALS: BMI 31.2
[2022-11-08 10:44] LABS: Alanine Aminotransferase 32 IU/L (<50); Albumin 3.2 g/dL (3.5-5.0); Albumin Globulin Ratio 0.9 (1.0-2.8); Alkaline Phosphatase 52 U/L (38-126); Aspartate Aminotransferase 31 IU/L (17-59); BUN Creatinine Ratio 17.3 (6-22); Bilirubin Total 0.8 mg/dL (0.2-1.3); Blood Urea Nitrogen 19 mg/dL (9-20); Calcium 8.6 mg/dL (8.4-10.2); Carbon Dioxide 28 mmol/L (22-32); Chloride 104 mmol/L (98-107); Cholesterol 110 mg/dL (140-199); Estimated Glomerular Filt Rate > 60 mL/min (>60); Globulin 3.4 g/dL (1.7-4.1); Glucose 81 mg/dL (80-110); HDL Cholesterol 43 mg/dL (40-60); HEMOLYSIS < 15 (0-50); LDL Cholesterol Calculated 43 mg/dL (<100); Potassium 4.1 mmol/L (3.4-5.1); Sodium 139 mmol/L (137-145); Total Protein 6.6 g/dL (6.3-8.2); Triglycerides 121 mg/dL (35-150)
[2022-11-08 12:51] LABS: Creatinine Urine Random 35.9 mg/dL
[2022-11-08 12:55] LABS: Microalbumi Creatinin Ratio Ur 75.2 ug/mg CR (<30); Microalbumin Urine Random 2.7 mg/dL (0-1.6)
[2022-11-09 08:35] LABS: x Labcorp Estim. Avg Glu (eAG) 203 mg/dL (.); x Labcorp Hemoglobin A1c 8.7 % (4.8-5.6)
== END ==
PROVIDERS: Family Provider Family Medicine; PCP Family Medicine; Referring Provider Internal Medicine Endocrinology, Diabetes & Metabolism; Visit Provider Internal Medicine Endocrinology, Diabetes & Metabolism
DX: E11.51 Type 2 diabetes mellitus with diabetic peripheral angiopathy without gangrene (principal); Z79.4 Long term (current) use of insulin
CPT/HCPCS: 36415; 80053; 80061; 82043; 82570; 83036

== ENCOUNTER → 2022-11-25 14:50 | Outpatient (CLI) | payer OTHER, SELFPAY ==
[2019-07-28 16:02] VITALS: BMI 31.2
--- NOTE | 2022-11-25 | DI.ECHO.S_ITS ---
[facility] +---------+ : : [address] : : : : [id number] : : : : Phone: [phone]+ Echocardiogram Report + + :Name: DAVID COATES Study Date: 11/25/2022 Height: 68 in : :[facility] ReadingLocation: Weight: 221 lb : : Gender: Male BSA: 2.1 m2 : :: 1940 Age: 82 yrs BP: 134/54 mmHg: :Reason For Study: Atrial Fibrillation : :Ordering Physician: Wiliam, : :Marcella Performed By: Jaqui Lake : :Referring: MARCELLA MCKEON : + + Interpretation Summary The left ventricle was not well seen but systolic function grossly remains moderately reduced with an estimated ejection fraction of around 40 to 45% with moderate global hypokinesis that is more severe in the mid and distal septum, extending into the inferoapex and appears unchanged except for slightly improved contractility in the distal anterior wall. Left ventricular size is mildly enlarged but similar to the previous exam with probable mild LVH that is unchanged. Diastolic function remains challenging to assess because of contradictory data but there is no compelling evidence for elevated filling pressures which may be slightly improved compared to the previous exam. The right ventricle is not well seen but grossly appears mildly enlarged with normal systolic function, likely unchanged from the previous exam. Right ventricular systolic pressure cannot be estimated but CVP is likely around 3 mmHg. Both atria are normal in size and measure smaller compared to the previous exam. There is a bioprosthetic aortic valve that appears normal with normal transvalvular gradients suggesting normal function. The peak transvalvular velocity is 2.3 m/s with a mean gradient of 10 mmHg compared to 2.8 m/s and 19 mmHg, respectively, on the previous exam. The previously seen aortic regurgitation is not evident although image quality is reduced. There are no other significant valvular abnormalities and specifically the mitral and tricuspid regurgitation seen previously are less evident. The ascending aorta remains moderately enlarged at 4.6 cm, compared to 4.5 cm previously. The patient was in sinus bradycardia at 45 to 50 bpm which is slightly slower compared to the previous study. Procedure: A two-dimensional transthoracic echocardiogram with color flow and Doppler was performed. The study quality was technically adequate. Comparison is made with the echocardiogram of 11/10/2021. The patient was in sinus bradycardia with heart rates between 45-50 bpm during the exam. This is slighlty slower compared to the previous study. Left Ventricle: The left ventricle is not well visualized. The left ventricle is mildly dilated. The estimated left ventricular end diastolic volume is 121 mL compared to the previous 106 ml. There is mild concentric left ventricular hypertrophy. Left ventricular systolic function is moderately reduced. The ejection fraction is estimated to be 40-45%. There is moderate global hypokinesis which appears similar to the previous exam with more prominent hypokinesis in the mid and distal septum extending to the apex that appears unchanged. The distal anterior hypokinesis appears slightly improved, otherwise there has been no significant change. Diastolic function could not be accurately assessed due to contradictory data. Diastolic parameters suggest a relaxation abnormality of the left ventricle, consistent with probable normal filling pressures. The E/A ratio has decreased, suggesting possible improved filling pressures although the E/E' are also elevated suggesting possibly higher filling pressures. Right Ventricle: The right ventricle is not well visualized. The right ventricle is mildly dilated. The right ventricular systolic function is normal. This is unchanged compared to the previous study. Atria: Both atria are normal in size. Both atria have mildly decreased in size since the prior echo exam. There is no Doppler evidence for an interatrial shunt. Mitral Valve: The mitral valve is not well visualized. There is mild mitral annular calcification. The mitral valve leaflets appear mildly thickened, but open well. There is no mitral valve stenosis. There is trace mitral regurgitation. This is less prominent compared to the previous study. 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 The prosthetic aortic valve is well-seated. The prosthetic aortic valve appears to open well. The peak aortic velocity is 228 m/sec. The aortic valve mean gradient is 10 mmHg. No aortic regurgitation is present. Tricuspid Valve: The tricuspid valve is not well visualized. The tricuspid valve is normal. There is no tricuspid stenosis. There is trace tricuspid regurgitation. Pulmonary artery pressures cannot be estimated because of the lack of a measurable TR jet velocity but the IVC suggests a CVP of around 3 mmHg. Pulmonic Valve: The pulmonic valve leaflets are thin and pliable; valve motion is normal. There is no pulmonic valvular stenosis. There is no pulmonic valvular regurgitation. Great Vessels: The ascending aorta is mild-moderately enlarged. This is unchanged compared to the previous study. The pulmonary artery is normal size. The IVC is of normal diameter and collapses greater than 50% with a sniff. This suggests a low right atrial pressure of 3 mm Hg. Pericardium/ Pleura There is no pericardial effusion. MMode/2D Measurements & Calculations LVIDd: 4.4 cm LVOT diam: 2.5 cm LVIDs: 4.1 cm asc Aorta Diam: 4.6 cm FS: 6.8 % EPSS: 1.4 cm IVSd: 1.2 cm LVPWd: 1.3 cm LV solano. diameter/BSA (cm/m^2): 2.1 LV sys. diameter/BSA (cm/m^2): 1.9 LA A2 area: 16.4 cm2 RA long axis: 6.3 cm LA A4 area: 24.4 cm2 RA area: 17.7 cm2 LA length (vol): 5.3 cm RA vol: 42.4 ml LA vol: 64.0 ml RA : 19.9 ml/m2 LA vol index: 30.0 ml/m2 RVD1 (basal): 4.3 cm LVLs ap4: 7.0 cm LVLd ap2: 7.9 cm TAPSE_phl: 2.9 cm LVLs ap2: 6.9 cm Doppler Measurements & Calculations Ao V2 max: 228.0 cm/sec LVOT Max Tony: 66.7 cm/sec Ao V2 mean: 147.0 cm/sec LV V1 max P.8 mmHg Ao max P.0 mmHg LV V1 VTI: 17.8 cm Ao mean P.0 mmHg JANA(I,D): 1.8 cm2 Ao V2 VTI: 49.3 cm JANA(V,D): 1.4 cm2 sev ratio: 0.36 JANA indexed to BSA (cm^2/m^2): 0.83 MV E max tony: 82.6 cm/sec TR max tony: 223.0 cm/sec MV A max tony: 85.7 cm/sec TR max P.9 mmHg MV E/A: 0.96 PA V2 max: 84.8 cm/sec Med Peak E' Tony: 3.3 cm/sec PA V2 mean: 59.4 cm/sec E/E' med: 25.3 PA mean P.0 mmHg Lat Peak E' Tony: 5.9 cm/sec PA pr(Accel): 16.0 mmHg E/E' lat: 13.9 E/e' average: 19.6 MV dec time: 0.75 sec SV(LVOT): 87.4 ml AV VR_phl: 0.29 JANA(VTI)/BSA_phl: 0.83 Reading Physician:04:51 PM
== END ==
PROVIDERS: Family Provider Family Medicine; PCP Family Medicine; Referring Provider Physician Assistant Medical; Visit Provider Specialist
DX: I48.0 Paroxysmal atrial fibrillation (principal); I51.7 Cardiomegaly; R00.1 Bradycardia, unspecified; Z95.2 Presence of prosthetic heart valve
CPT/HCPCS: 93306

== ENCOUNTER → 2022-11-27 09:34 | Outpatient (CLI) | payer OTHER, SELFPAY ==
[2019-07-28 16:02] VITALS: BMI 31.2
[2022-11-27 10:30] LABS: Alanine Aminotransferase 34 IU/L (<50); Albumin 3.4 g/dL (3.5-5.0); Alkaline Phosphatase 53 U/L (38-126); Aspartate Aminotransferase 30 IU/L (17-59); BUN Creatinine Ratio 15.7 (6-22); Bilirubin Total 0.8 mg/dL (0.2-1.3); Blood Urea Nitrogen 18 mg/dL (9-20); Calcium 8.7 mg/dL (8.4-10.2); Carbon Dioxide 32 mmol/L (22-32); Chloride 102 mmol/L (98-107); Cholesterol 122 mg/dL (140-199); Estimated Glomerular Filt Rate > 60 mL/min (>60); Globulin 3.3 g/dL (1.7-4.1); Glucose 161 mg/dL (80-110); HDL Cholesterol 47 mg/dL (40-60); HEMOLYSIS < 15 (0-50); LDL Cholesterol Calculated 53 mg/dL (<100); Potassium 4.1 mmol/L (3.4-5.1); Sodium 138 mmol/L (137-145); Total Protein 6.7 g/dL (6.3-8.2); Triglycerides 109 mg/dL (35-150)
[2022-11-27 13:09] LABS: Creatinine Urine Random 114.6 mg/dL
[2022-11-27 13:14] LABS: Microalbumi Creatinin Ratio Ur 48.8 ug/mg CR (<30); Microalbumin Urine Random 5.6 mg/dL (0-1.6)
[2022-11-29 02:06] LABS: x Labcorp Estim. Avg Glu (eAG) 203 mg/dL (.); x Labcorp Hemoglobin A1c 8.7 % (4.8-5.6)
== END ==
PROVIDERS: Family Provider Family Medicine; PCP Family Medicine; Referring Provider Family Medicine; Visit Provider Family Medicine
DX: E11.51 Type 2 diabetes mellitus with diabetic peripheral angiopathy without gangrene (principal); E78.5 Hyperlipidemia, unspecified; I25.10 Atherosclerotic heart disease of native coronary artery without angina pectoris; I25.2 Old myocardial infarction; G45.9 Transient cerebral ischemic attack, unspecified; I10 Essential (primary) hypertension; I50.9 Heart failure, unspecified
CPT/HCPCS: 36415; 80053; 80061; 82043; 82570; 83036

== ENCOUNTER 2023-05-04 09:11 | Emergency (ER) | payer OTHER, SELFPAY ==
[2019-07-28 16:02] VITALS: BMI 31.2
[2023-05-04] VITALS (20 sets, daily range): BP systolic 118–146; BP diastolic 58–77; PULSE 52–69; RESP 16–25; TEMP 36.6; O2SAT 94–98; BMI 33.4
--- NOTE | 2023-05-04 09:36 | DI.CT.S_ITS ---
PROCEDURE: CT HEAD/BRAIN WO CON INDICATIONS: Visual field disturbance TECHNIQUE: Noncontrast 4.5 mm thick angled axial sections acquired from the foramen magnum to the vertex, with coronal and sagittal reformats. For radiation dose reduction, the following was used: automated exposure control, adjustment of mA and/or kV according to patient size. COMPARISON: MR, STROKE PROTOCOL, 02/15/2013, 14:31. FINDINGS: Image quality: Excellent. CSF spaces: Basal cisterns are patent. No extra-axial fluid collections. The ventricles are symmetric in size and shape. Brain: No intracranial bleeds or masses. There is cerebral volume loss for age, with resultant ventricular and sulcal prominence. There are periventricular and deep white matter chronic small vessel ischemic changes. There is intracranial internal carotid artery atherosclerosis. Skull and face: Calvarium and visualized facial bones appear intact, without suspicious lesions. Sinuses: Visualized sinuses and mastoids are clear. IMPRESSION: 1. No acute intracranial process. 2. Moderate atrophy and chronic microvascular ischemic changes. Dictated by: Carmen Mckeon M.D. on 05/04/2023 at 10:01 Approved by: Carmen Mckeon M.D. on 05/04/2023 at 10:02
--- NOTE | 2023-05-04 10:08 | ED.NEUROSD ---
HPI - Neuro Symptoms/Deficit General Chief Complaint: Neuro Symptoms/Deficit Stated Complaint: coming to have test done Time Seen by Provider: 05/04/23 09:34 Source: patient Mode of arrival: Ambulatory History of Present Illness HPI Narrative: Patient is an 82-year-old male. Has had surgery to his right eye in the past. That surgery was for glaucoma. He also has a history of insulin-dependent diabetes. He states he woke up yesterday morning with vision disturbance in his left eye. He states that the bottom 2/3 to 1/2 of the visual field in his left eye was purple. He had no pain in his eye. No headache. No extremity discomfort. He would no right eye symptoms. When he closed his left eye all of the symptoms went away. He does seem to think that the amount of deficit that he is having does seem to change somewhat. Currently he states that this approximately the bottom 1/2 the visual field of his left eye. He saw his eye doctor yesterday. He stated that they checked his pressures in his eye and everything was okay. He was told to come to the emergency department last evening for concerns of ?clots? he could not make it last evening which is why he presents today. On Anticoagulants: Yes Related Data Home Medications Medication Instructions Recorded Confirmed glipizide 10 mg tablet, extended 2 tab PO QACBREAK 11/08/17 07/28/19 release 24 hr metformin 500 mg tablet 500 mg PO BIDAC 11/08/17 07/28/19 apixaban 5 mg tablet 5 mg PO BID 07/28/19 07/28/19 aspirin 81 mg tablet,delayed 81 mg PO DAILY 07/28/19 07/28/19 release (Adult Low Dose Aspirin) brimonidine 0.15 % eye drops 1 drp EYE-BOTH BID 07/28/19 07/28/19 cholecalciferol (vitamin D3) 50 2,000 unit PO DAILY 07/28/19 07/28/19 mcg (2,000 unit) tablet clopidogrel 75 mg tablet 75 mg PO DAILY 07/28/19 07/28/19 coenzyme Q10 100 mg capsule 100 mg PO DAILY 07/28/19 07/28/19 dorzolamide 2 %-timolol 0.5 % (PF) 1 drp ophthalmic (eye) BID 07/28/19 07/28/19 eye drops insulin glargine 100 unit/mL 13 unit SUBCUT BID 07/28/19 07/28/19 subcutaneous solution (Lantus U-100 Insulin) latanoprost 0.005 % eye drops 1 drp ophthalmic (eye) BEDTIME 07/28/19 07/28/19 lisinopril 2.5 mg tablet 2.5 mg PO DAILY 07/28/19 07/28/19 metoprolol succinate 25 mg 12.5 mg PO DAILY 07/28/19 07/28/19 tablet,extended release 24 hr pantoprazole 20 mg tablet,delayed 20 mg PO DAILY 07/28/19 07/28/19 release rosuvastatin 40 mg tablet 40 mg PO BEDTIME 07/28/19 07/28/19 spironolactone 25 mg tablet 12.5 mg PO DAILY 07/28/19 07/28/19 Previous Rx's Medication Instructions Recorded furosemide 20 mg tablet 20 mg PO DAILY #30 tabs 07/31/19 cyclobenzaprine 10 mg tablet 10 mg PO TID PRN muscle spasm #30 05/03/22 tabs hydrocodone 5 mg-acetaminophen 325 1 tab PO Q8H PRN pain #20 tabs 05/03/22 mg tablet apixaban 5 mg tablet 5 mg PO BID #60 tabs 06/02/22 metoprolol tartrate 25 mg tablet 25 mg PO BID #60 tabs 06/02/22 Allergies Allergy/AdvReac Type Severity Reaction Status Date / Time sulfamethoxazole Allergy Intermediate Verified 05/04/23 09:34 [From Bactrim] trimethoprim [From Bactrim] Allergy Intermediate Verified 05/04/23 09:34 Review of Systems Eyes Eyes: Reports system reviewed and no additional complaints, except as documented ENT Ears, Nose, Mouth, and Throat: Reports system reviewed and no additional complaints, except as documented Musculoskeletal Musculoskeletal: Reports system reviewed and no additional complaints, except as documented Integumentary/Breasts Skin/Breast: Reports system reviewed and no additional complaints, except as documented Neurologic Neurologic: Reports system reviewed and no additional complaints, except as documented Hematologic/Lymphatic On Anticoagulants: Yes Patient History Medical History (Updated 05/04/23 @ 16:01 by Junaid Denson DO) Hypertension Hyperlipidemia Coronary artery disease Diabetes Social History household members: spouse Smoking Status: Never smoker alcohol intake: never Smoking Status: Never smoker alcohol intake frequency: 0-2 drinks per day Substance Use Type: does not use Exam Initial Vital Signs Initial Vital Signs: Vital Signs Temperature 97.8 F 05/04/23 09:26 Pulse Rate 57 L 05/04/23 09:26 Respiratory Rate 16 05/04/23 09:26 Blood Pressure 136/58 L 05/04/23 09:26 Pulse Oximetry 98 05/04/23 09:26 Oxygen Delivery Method Room Air 05/04/23 09:26 Const General: cooperative, comfortable and No ill appearing Eyes EOM: EOM intact bilaterally Other: Intra-ocular pressure right eye 20, intra-ocular pressure left eye 19, sclera unremarkable, pupils equal round reactive, visual field deficit left eye lower visual field Resp Effort & Inspection: normal respiratory effort Cardio Rate: regular rate GI Inspection: normal to inspection and non-distended Skin General: no rashes or lesions noted Neuro General: patient alert, patient awake, patient oriented x3 and moves all extremities Cranial Nerves: CN's II-XI intact bilaterally Cognition: normal cognition Speech: speech normal Extrem General: normal to inspection Course Orders Ordered: ED Orders 05/04/23 09:36 CT head/brain wo con Stat 05/04/23 10:05 Complete Blood Count AUTO DIFF Stat PTT Partial Thromboplastin David Stat Prothrombin Time INR Stat 05/04/23 10:11 EKG-12 Lead Stat 05/04/23 10:37 C-Reactive Protein Quant Stat Comprehensive Metabolic Panel Stat ESR [Erythrocyte Sedimentation Rate] Stat Lipase Stat 05/04/23 10:38 MR stroke Stat Discontinued Medications Proparacaine HCl (Proparacaine 0.5% Ophth Lesvia) 1 drops EYE-BOTH NOW ONE Stop: 05/04/23 10:08 Last Admin: 05/04/23 10:17 Dose: 1 drops Documented By: DELMY Vital Signs Vital signs: Vital Signs - 8 hr 05/04/23 09:26 05/04/23 10:54 05/04/23 11:00 Temperature 97.8 F Pulse Rate 57 L 55 L 59 L Respiratory Rate 16 21 24 Blood Pressure 136/58 L Pulse Oximetry 98 96 94 Oxygen Delivery Method Room Air 05/04/23 11:01 05/04/23 11:01 05/04/23 11:30 Temperature Pulse Rate 60 59 L Respiratory Rate 25 H 21 Blood Pressure 131/58 L Pulse Oximetry 95 97 Oxygen Delivery Method 05/04/23 11:31 05/04/23 11:31 05/04/23 12:00 Temperature Pulse Rate 61 53 L Respiratory Rate 24 23 Blood Pressure 126/58 L Pulse Oximetry 95 97 Oxygen Delivery Method 05/04/23 12:01 05/04/23 12:01 05/04/23 12:30 Temperature Pulse Rate 52 L 58 L Respiratory Rate 24 23 Blood Pressure 125/58 L Pulse Oximetry 96 96 Oxygen Delivery Method 05/04/23 12:31 05/04/23 12:31 05/04/23 13:00 Temperature Pulse Rate 52 L Respiratory Rate 23 Blood Pressure 118/61 125/69 Pulse Oximetry 97 Oxygen Delivery Method 05/04/23 13:00 05/04/23 13:30 05/04/23 13:31 Temperature Pulse Rate 62 58 L Respiratory Rate 22 Blood Pressure 133/64 Pulse Oximetry 95 97 Oxygen Delivery Method 05/04/23 13:31 05/04/23 14:00 05/04/23 15:05 Temperature Pulse Rate 57 L 58 L Respiratory Rate 24 Blood Pressure Pulse Oximetry 95 95 95 Oxygen Delivery Method 05/04/23 15:13 05/04/23 15:13 05/04/23 15:30 Temperature Pulse Rate 62 69 Respiratory Rate Blood Pressure 128/77 Pulse Oximetry 96 95 Oxygen Delivery Method 05/04/23 15:33 05/04/23 15:33 05/04/23 16:00 Temperature Pulse Rate 63 63 Respiratory Rate Blood Pressure 146/75 H Pulse Oximetry 96 98 Oxygen Delivery Method MDM - Neuro Symptoms/Deficit Lab Data 05/04/23 10:05 05/04/23 10:37 Labs: Lab Results 05/04/23 05/04/23 Range/Units 10:05 10:37 WBC 10.7 (4.5-11.0) X10^3/uL RBC 5.26 (4.5-5.9) X10^6/uL Hgb 15.8 (13.5-17.5) g/dL Hct 47.1 (41-53) % MCV 89.6 (80-100) fL MCH 30.0 (26-34) PG MCHC 33.5 (30-36) % RDW 14.9 H (11.6-14.8) % Plt Count 140 L (150-400) X10^3/uL Neut % (Auto) 60.8 (50-75) % Lymph % (Auto) 24.8 L (25-40) % [place] % (Auto) 12.4 (3-14) % Eos % (Auto) 1.2 L (2-4) % Baso % (Auto) 0.8 (0-2) % Neut # (Auto) 6500 (2129-4265) /uL Lymph # (Auto) 2700 (1131-1545) /uL [place] # (Auto) 1300 H (0-900) /uL Eos # (Auto) 100 (0-450) /uL Baso # (Auto) 100 (0-100) /uL ESR 8 (0-15) MM/HR PT 17.6 H (10.1-12.7) SECONDS INR 1.5 H (0.9-1.3) APTT 38 H (26-36) SECONDS Sodium 139 (137-145) mmol/L Potassium 4.0 (3.4-5.1) mmol/L Chloride 107 (98-107) mmol/L Carbon Dioxide 26 (22-32) mmol/L BUN 17 (9-20) mg/dL Creatinine 1.18 (0.66-1.25) mg/dL Estimated GFR > 60 (>60) mL/min BUN/Creatinine Ratio 14.4 (6-22) Glucose 146 H (80-110) mg/dL Calcium 9.0 (8.4-10.2) mg/dL Total Bilirubin 0.9 (0.2-1.3) mg/dL AST 32 (17-59) IU/L ALT 36 (<50) IU/L Alkaline Phosphatase 49 (38-126) U/L C-Reactive Protein 0.6 (<1.0) mg/dL Total Protein 6.9 (6.3-8.2) g/dL Albumin 3.5 (3.5-5.0) g/dL Globulin 3.4 (1.7-4.1) g/dL Albumin/Globulin Ratio 1.0 (1.0-2.8) Lipase 111 (23-300) U/L Imaging Data CT scan - head: Radiologist's Impression: ROCEDURE: CT HEAD/BRAIN WO CON INDICATIONS: Visual field disturbance TECHNIQUE: Noncontrast 4.5 mm thick angled axial sections acquired from the foramen magnum to the vertex, with coronal and sagittal reformats. For radiation dose reduction, the following was used: automated exposure control, adjustment of mA and/or kV according to patient size. COMPARISON: MR, STROKE PROTOCOL, 02/15/2013, 14:31. FINDINGS: Image quality: Excellent. CSF spaces: Basal cisterns are patent. No extra-axial fluid collections. The ventricles are symmetric in size and shape. Brain: No intracranial bleeds or masses. There is cerebral volume loss for age, with resultant ventricular and sulcal prominence. There are periventricular and deep white matter chronic small vessel ischemic changes. There is intracranial internal carotid artery atherosclerosis. Skull and face: Calvarium and visualized facial bones appear intact, without suspicious lesions. Sinuses: Visualized sinuses and mastoids are clear. IMPRESSION: 1. No acute intracranial process. 2. Moderate atrophy and chronic microvascular ischemic changes. brain mri: Radiologist's Impression: PROCEDURE: MR STROKE Pre- and post-contrast brain MRI, non-contrast brain MR angiogram, pre- and postcontrast neck MR angiogram INDICATIONS: Left visual field deficit TECHNIQUE: Brain: Noncontrast axial T1 spin echo, axial T2 fast spin echo, sagittal and axial FLAIR, coronal T2 fast spin echo, axial gradient echo, axial diffusion and ADC through the brain. After the administration of contrast, axial 3D VIBE of the cranial vasculature and brain. Brain MRA: Non-contrast 3-D time of flight MR angiogram, with multiple ynknqen-vuqvqedbx-rknfitrrxs (MIP) reformats performed. Neck MRA: Axial and sagittal TruFISP through the neck. Coronal dynamic MR angiogram during administration of contrast in the arterial and venous phases, with 3-dimenstional wyfenqs-gqgnyvgpv-mxudsyjzrs (MIP) reformats constructed from subtraction images. COMPARISON: [facility], CT, CT HEAD/BRAIN WO CON, 05/04/2023, 9:47. [facility], MR, STROKE PROTOCOL, 02/15/2013, 14:31. FINDINGS: Image quality: Excellent. BRAIN: CSF spaces: Ventricles are normal in size and shape. Basal cisterns are patent. No extra-axial fluid collections. Brain: Prior volume loss can be seen within the right cerebellum. No intracranial bleeds or mass effects. Frank-white matter interface is normal. Diffusion weighted images show no acute ischemic insults. Brainstem appears normal. Normal intravascular flow voids are present. No abnormal intracranial enhancement. Skull and face: Calvarial marrow signal is normal. Orbits appear normal. Note is made of bilateral lens replacements. Sinuses: Nvbh-cn-kuzjkgbl mucosal thickening can be seen within the left maxillary sinus. No significant mucosal thickening can be seen elsewhere. There is a mild degree of right mastoid air cell fluid. BRAIN MR ANGIOGRAM: Anterior circulation: Intracranial internal carotid arteries are normal in size and enhancement. The flow within the paired anterior cerebral arteries is normal and symmetric. The flow within the middle cerebral arteries is normal and symmetric. The anterior communicating artery is seen. No stenoses, occlusions, or aneurysms. Posterior circulation: The V4 segments are not seen. There is poor flow within the basilar artery, with no flow seen inferiorly. There is a prominent left posterior communicating artery seen, with an accompanying diminutive left P1 segment. This is attributed to a type origin of the right posterior cerebral artery, which is considered to be a normal developmental variant of typically no clinical consequence. The flow within the posterior cerebral arteries is normal and symmetric. No aneurysms are seen. NECK MR ANGIOGRAM: Carotids: Great vessels demonstrate a conventional anatomy as they arise from the aortic arch. The origins of the common carotid arteries appear patent. The calibers and courses of both common carotid arteries are normal. The bifurcation regions demonstrate atherosclerotic irregularity. There is 50-60% narrowing seen involving the left proximal internal carotid artery. No graciela hemodynamically significant stenosis is now seen on the right. Posterior circulation: No flow seen within the vertebral arteries. Miscellaneous: Subclavian arteries appear patent. Pre-contrast images through the neck show no soft tissue abnormalities. IMPRESSION: BRAIN MRI: No findings of acute or subacute infarction can be seen. 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 Incidental note made of focal left maxillary sinus disease and mild right mastoid air cell fluid. BRAIN MR ANGIOGRAM: No flow seen within the V4 segments. There is poor flow within the basilar artery, with no flow seen inferiorly. These findings are stable compared to 2013. NECK MR ANGIOGRAM: No flow seen within either vertebral artery, which is stable compared to 2013. 50-60% narrowing can be seen involving the left proximal internal carotid artery. The previously seen significant narrowing within the right proximal internal carotid artery is no longer seen. MDM Narrative Medical decision making narrative: Patient does have a left eye lower visual field deficit. The brain MRI shows no acute changes from an MRI done in 2012. I did discuss the case with Dr. Raymundo the patient's manager metal. 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 He stated that new guidelines show that individuals with this should have more emergent stroke workup. He asked that we add on an ESR and CRP which were both unremarkable. The patient today does not have signs of temporal arteritis or acute glaucoma. I also discussed the case with Dr. Manning the patient's primary doctor who asked that the patient give him a call for a follow-up appointment. He is currently on aspirin and Plavix and also apixaban. Will have him continue this. No indication for admission to the hospital. He was given return precautions. He expressed understanding and agreement with plan. Discharge Plan Departure Patient Disposition: Home Clinical Impression: Visual field defect of left eye Instructions: DI for Visual Field Disturbances Activity Restrictions/Additional Instructions: Recommend that you continue to take all of your medications as directed. I recommend that you contact your primary doctor's office for follow-up and also keep your follow-up appointment with Dr. Raymundo. Return to the emergency department for new or worsening symptoms. Prescriptions: No Action metformin 500 mg tablet 500 mg PO BIDAC Patient Comments: take 1 tablet by mouth twice a day BEFORE MEALS glipizide 10 mg tablet extended release 24hr 2 tab PO QACBREAK latanoprost 0.005 % Drops 1 drp OPHTHALMIC (EYE) BEDTIME Lantus U-100 Insulin 100 unit/mL Solution 13 unit SUBCUT BID aspirin [Adult Low Dose Aspirin] 81 mg Tablet,Delayed Release (Dr/Ec) 81 mg PO DAILY spironolactone 25 mg Tablet 12.5 mg PO DAILY pantoprazole 20 mg Tablet,Delayed Release (Dr/Ec) 20 mg PO DAILY metoprolol succinate 25 mg Tablet Extended Release 24 Hr 12.5 mg PO DAILY lisinopril 2.5 mg Tablet 2.5 mg PO DAILY brimonidine 0.15 % Drops 1 drp EYE-BOTH BID coenzyme Q10 100 mg Capsule 100 mg PO DAILY rosuvastatin 40 mg Tablet 40 mg PO BEDTIME apixaban 5 mg Tablet 5 mg PO BID dorzolamide-timolol (PF) 2-0.5 % Drops 1 drp OPHTHALMIC (EYE) BID clopidogrel 75 mg Tablet 75 mg PO DAILY cholecalciferol (vitamin D3) 2,000 unit Tablet 2,000 unit PO DAILY furosemide 20 mg tablet 20 mg PO DAILY Qty: 30 1RF Rx Instructions: please take in am if weight increased greater than 2 pounds over 1-2 days apixaban 5 mg tablet 5 mg PO BID Qty: 60 1RF metoprolol tartrate 25 mg tablet 25 mg PO BID Qty: 60 1RF cyclobenzaprine 10 mg tablet 10 mg PO TID PRN (Reason: muscle spasm) Qty: 30 0RF hydrocodone-acetaminophen 5-325 mg tablet 1 tab PO Q8H PRN (Reason: pain) Qty: 20 0RF Referrals: Ian Manning MD [Primary Care Provider] - Stand Alone Forms: Patient Portal/API
[2023-05-04] MEDS: PROPARACAINE 0.5% OPHTH SOL 1 DROPS EYE-BOTH (10:17)
[2023-05-04 10:19] LABS: Add Manual Diff / Slide Review NO; Basophils Absolute Auto 100 /uL (0-100); Basophils Percent Auto 0.8 % (0-2); Eosinophils Absolute Auto 100 /uL (0-450); Eosinophils Percent Auto 1.2 % (2-4); Hematocrit 47.1 % (41-53); Hemoglobin 15.8 g/dL (13.5-17.5); Lymphocytes Absolute Auto 2700 /uL (1100-4500); Lymphocytes Percent Auto 24.8 % (25-40); Mean Corpuscular HGB Conc 33.5 % (30-36); Mean Corpuscular Volume 89.6 fL (80-100); Monocytes Absolute Auto 1300 /uL (0-900); Monocytes Percent Auto 12.4 % (3-14); Neutrophils Absolute Auto 6500 /uL (1500-7000); Neutrophils Percent Auto 60.8 % (50-75); Platelet Count 140 X10^3/uL (150-400); Red Blood Cell Count 5.26 X10^6/uL (4.5-5.9); Red Cell Distribution Width 14.9 % (11.6-14.8); White Blood Cell Count 10.7 X10^3/uL (4.5-11.0)
[2023-05-04 10:28] LABS: INR 1.5 (0.9-1.3); Prothrombin Time 17.6 SECONDS (10.1-12.7)
[2023-05-04 10:30] LABS: PTT Partial Thromboplastin Tim 38 SECONDS (26-36)
--- NOTE | 2023-05-04 10:38 | DI.MRI.S_ITS ---
PROCEDURE: MR STROKE Pre- and post-contrast brain MRI, non-contrast brain MR angiogram, pre- and postcontrast neck MR angiogram INDICATIONS: Left visual field deficit TECHNIQUE: Brain: Noncontrast axial T1 spin echo, axial T2 fast spin echo, sagittal and axial FLAIR, coronal T2 fast spin echo, axial gradient echo, axial diffusion and ADC through the brain. After the administration of contrast, axial 3D VIBE of the cranial vasculature and brain. Brain MRA: Non-contrast 3-D time of flight MR angiogram, with multiple nnlhjpt-aeaktxcdj-siftfbvfpb (MIP) reformats performed. Neck MRA: Axial and sagittal TruFISP through the neck. Coronal dynamic MR angiogram during administration of contrast in the arterial and venous phases, with 3-dimenstional ntvqvxy-uqcukbstr-ihkaadzgyt (MIP) reformats constructed from subtraction images. COMPARISON: [facility], CT, CT HEAD/BRAIN WO CON, 05/04/2023, 9:47. [facility], MR, STROKE PROTOCOL, 02/15/2013, 14:31. FINDINGS: Image quality: Excellent. BRAIN: CSF spaces: Ventricles are normal in size and shape. Basal cisterns are patent. No extra-axial fluid collections. Brain: Prior volume loss can be seen within the right cerebellum. No intracranial bleeds or mass effects. Frank-white matter interface is normal. Diffusion weighted images show no acute ischemic insults. Brainstem appears normal. Normal intravascular flow voids are present. No abnormal intracranial enhancement. Skull and face: Calvarial marrow signal is normal. Orbits appear normal. Note is made of bilateral lens replacements. Sinuses: Umbh-ms-vkumwwxs mucosal thickening can be seen within the left maxillary sinus. No significant mucosal thickening can be seen elsewhere. There is a mild degree of right mastoid air cell fluid. BRAIN MR ANGIOGRAM: Anterior circulation: Intracranial internal carotid arteries are normal in size and enhancement. The flow within the paired anterior cerebral arteries is normal and symmetric. The flow within the middle cerebral arteries is normal and symmetric. The anterior communicating artery is seen. No stenoses, occlusions, or aneurysms. Posterior circulation: The V4 segments are not seen. There is poor flow within the basilar artery, with no flow seen inferiorly. There is a prominent left posterior communicating artery seen, with an accompanying diminutive left P1 segment. This is attributed to a type origin of the right posterior cerebral artery, which is considered to be a normal developmental variant of typically no clinical consequence. The flow within the posterior cerebral arteries is normal and symmetric. No aneurysms are seen. NECK MR ANGIOGRAM: Carotids: Great vessels demonstrate a conventional anatomy as they arise from the aortic arch. The origins of the common carotid arteries appear patent. The calibers and courses of both common carotid arteries are normal. The bifurcation regions demonstrate atherosclerotic irregularity. There is 50-60% narrowing seen involving the left proximal internal carotid artery. No graciela hemodynamically significant stenosis is now seen on the right. Posterior circulation: No flow seen within the vertebral arteries. Miscellaneous: Subclavian arteries appear patent. Pre-contrast images through the neck show no soft tissue abnormalities. IMPRESSION: BRAIN MRI: No findings of acute or subacute infarction can be seen. 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 Incidental note made of focal left maxillary sinus disease and mild right mastoid air cell fluid. BRAIN MR ANGIOGRAM: No flow seen within the V4 segments. There is poor flow within the basilar artery, with no flow seen inferiorly. These findings are stable compared to 2013. NECK MR ANGIOGRAM: No flow seen within either vertebral artery, which is stable compared to 2013. 50-60% narrowing can be seen involving the left proximal internal carotid artery. The previously seen significant narrowing within the right proximal internal carotid artery is no longer seen. Dictated by: Damir Murrell M.D. on 05/04/2023 at 14:13 Approved by: Damir Murrell M.D. on 05/04/2023 at 14:20
[2023-05-04 10:59] LABS: Alanine Aminotransferase 36 IU/L (<50); Albumin 3.5 g/dL (3.5-5.0); Alkaline Phosphatase 49 U/L (38-126); Aspartate Aminotransferase 32 IU/L (17-59); BUN Creatinine Ratio 14.4 (6-22); Bilirubin Total 0.9 mg/dL (0.2-1.3); Blood Urea Nitrogen 17 mg/dL (9-20); Carbon Dioxide 26 mmol/L (22-32); Chloride 107 mmol/L (98-107); Estimated Glomerular Filt Rate > 60 mL/min (>60); Globulin 3.4 g/dL (1.7-4.1); Glucose 146 mg/dL (80-110); HEMOLYSIS < 15 (0-50); Lipase 111 U/L (23-300); Sodium 139 mmol/L (137-145); Total Protein 6.9 g/dL (6.3-8.2)
--- NOTE | 2023-05-04 14:58 | PC.NURSE ---
MRI stated that when the patient got up for the scan and he listed to the side and was directed to sit down. He came to the nurses station and said his BG was low and stated that he needed to have some sugar.
--- NOTE | 2023-05-04 15:05 | PC.NURSE ---
patient was given juice
[2023-05-04 15:55] LABS: C-Reactive Protein Quant 0.6 mg/dL (<1.0)
[2023-05-04 16:27] LABS: Erythrocyte Sedimentation Rate 8 MM/HR (0-15)
--- NOTE | 2023-05-04 16:34 | PC.NURSE ---
Patient stated that he was instructed by his eye doctor to come to the ED and checked out for stroke. He was only having vision changes where he was seeing blue in his left eye. His eye doctor stated that he was not having any issues within his eye but he was concerned for clots.
== END 2023-05-04 16:34 | disposition home or self-care (01) ==
PROVIDERS: Emergency Provider Emergency Medicine; Family Provider Family Medicine; PCP Family Medicine
DX: H53.40 Unspecified visual field defects (principal); Z79.01 Long term (current) use of anticoagulants; Z79.899 Other long term (current) drug therapy
CPT/HCPCS: 36415; 70450; 70548; 70553; 80053; 82962; 83690; 85025; 85610; 85651; 85730; 86140; 93005; 99284

== ENCOUNTER → 2023-06-10 14:55 | Outpatient (CLI) | payer OTHER, SELFPAY ==
[2019-07-28 16:02] VITALS: BMI 31.2
== END ==
PROVIDERS: Family Provider Family Medicine; PCP Family Medicine; Referring Provider Family Medicine; Visit Provider Family Medicine
DX: R06.09 Other forms of dyspnea (principal); J98.8 Other specified respiratory disorders
CPT/HCPCS: 94060; 94726; 94729

== ENCOUNTER → 2023-06-30 13:45 | Outpatient (CLI) | payer OTHER, SELFPAY ==
[2019-07-28 16:02] VITALS: BMI 31.2
--- NOTE | 2023-06-30 13:47 | DI.ECHO.S_ITS ---
[facility]+ : : [address] : : : : [id number] : : : : Phone: [phone] Echocardiogram Report + + :Name: DAVID COATES Study Date: 06/30/2023 Height: 68.5 in: :[facility] ReadingLocation: Weight: 221 lb : : Gender: Male BSA: 2.1 m2 : :: 1940 Age: 82 yrs BP: 149/77 mmHg: :Reason For Study: VISUAL LOSS : :Ordering Physician: LINDA, : :MARCELLA Performed By: Yusra Cisneros : :Referring: MARCELLA MCKEON : + + Interpretation Summary Left ventricular systolic function is moderately reduced with an estimated ejection fraction of 35 to 40% with global hypokinesis that is more severe in the septum and apex that is unchanged unchanged although global contractility appears perhaps slightly worse. No obvious thrombus is identified. Left ventricular volumes are borderline increased but grossly unchanged. Diastolic function remains challenging to assess but without evidence for elevated filling pressures and perhaps slightly lower compared to the previous study. The right ventricle remains mildly enlarged with normal systolic function and unchanged from the previous study. Right ventricular systolic pressure is estimated at 33 mmHg with a CVP of 3 mmHg. This was unable to be assessed on the prior exam. There is borderline biatrial enlargement with both measuring slightly larger compared to the previous study. There is mild mitral and mild to moderate tricuspid regurgitation, both slightly more prominent compared to the previous study. There is a bioprosthetic aortic valve that appears functioning normally with a peak velocity of 2.0 m/s and a mean gradient of 9 mmHg compared to 2.3 m/s and 10 mmHg, previously. No vegetation or thrombus is identified. The ascending aorta remains moderate to severely enlarged at 4.6 cm but is unchanged. The aortic arch is moderately enlarged. The patient was in sinus rhythm at 54 to 73 bpm with occasional to frequent PVCs, slightly faster compared to previous and PVCs are more prominent. Procedure: A two-dimensional transthoracic echocardiogram with color flow and Doppler was performed. The study quality was technically adequate. Comparison is made with the echocardiogram of 11/25/2022. The patient had occasional PVCs during the exam. The patient was in sinus rhythm with heart rates between 54-73 bpm during the exam. Left Ventricle: The left ventricle is borderline dilated. The estimated left ventricular end diastolic volume is 109 compared to the previous 121 ml. The left ventricular apex is not well visualized. There is no thrombus. Left ventricular systolic function is moderately reduced. The ejection fraction is estimated to be 35-40%. There is moderate global hypokinesis of the left ventricle. There is more severe hypokinesis in the interventricular septum and apex but this appears unchanged. Overall contractility appears similar to the previous exam, perhaps slightly worse. Diastolic function could not be accurately assessed due to contradictory data. Diastolic parameters suggest probable normal left ventricular diastolic function and normal filling pressures. This is unchanged, perhaps slightly lower compared to the previous study. Right Ventricle: The right ventricle is not well visualized. The right ventricle is mildly dilated. The right ventricular systolic function is normal. This is unchanged compared to the previous study. Atria: There is borderline biatrial enlargement. Both atria have mildly increased in size since the prior echo exam. There is no Doppler evidence for an interatrial shunt. Mitral Valve: There is mild to moderate mitral annular calcification. The mitral valve leaflets appear mildly thickened, but open well. There is mild mitral regurgitation. This is slightly more prominent compared to the previous study. 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 The prosthetic aortic valve is well-seated. The prosthetic aortic valve appears to open well. There is probable normal prosthetic aortic valve function. This is unchanged compared to the previous study. The peak aortic velocity is 2.0 m/sec. The aortic valve mean gradient is 8.8 mmHg. No aortic regurgitation is present. Tricuspid Valve: The tricuspid valve is not well visualized, but is grossly normal. There is mild to moderate tricuspid regurgitation. The right ventricular systolic pressure is estimated to be at least 33 mmHg based on an estimated right atrial pressure of 3 mm Hg. This is slightly more prominent compared to the previous study. Pulmonic Valve: The pulmonic valve is not well visualized. There is no pulmonic valvular regurgitation. Great Vessels: The ascending aorta is moderate-severely enlarged. This is unchanged compared to the previous study. The aortic arch is moderately enlarged. The IVC is of normal diameter and collapses greater than 50% with a sniff. This suggests a low right atrial pressure of 3 mm Hg. Pericardium/ Pleura There is no pericardial effusion. There is no pleural effusion. MMode/2D Measurements & Calculations LVIDd: 5.6 cm LVOT diam: 2.1 cm LVIDs: 4.5 cm asc Aorta Diam: 4.6 cm FS: 18.9 % Ao Arch Diam (Prox Trans): 3.7 cm EPSS: 0.78 cm IVSd: 1.0 cm LVPWd: 0.93 cm LV solano. diameter/BSA (cm/m^2): 2.6 LV sys. diameter/BSA (cm/m^2): 2.1 LA A2 area: 21.6 cm2 RA long axis: 6.0 cm LA A4 area: 24.8 cm2 RA area: 20.5 cm2 LA length (vol): 6.1 cm RA vol: 59.6 ml LA vol: 74.8 ml RA : 27.8 ml/m2 LA vol index: 34.9 ml/m2 IVC diam: 1.7 cm RVD1 (basal): 4.4 cm TAPSE: 2.2 cm Doppler Measurements & Calculations Ao V2 max: 200.4 cm/sec LVOT Max Tony: 69.6 cm/sec Ao V2 mean: 133.6 cm/sec LV V1 max P.9 mmHg Ao max P.1 mmHg LV V1 VTI: 16.4 cm Ao mean P.8 mmHg JANA(I,D): 1.5 cm2 Ao V2 VTI: 40.1 cm JANA(V,D): 1.2 cm2 sev ratio: 0.41 JANA indexed to BSA (cm^2/m^2): 0.68 MV E max tony: 91.8 cm/sec TR max tony: 274.5 cm/sec MV A max tony: 75.4 cm/sec TR max P.1 mmHg MV E/A: 1.2 PA V2 max: 85.6 cm/sec Med Peak E' Tony: 5.4 cm/sec PA V2 mean: 58.1 cm/sec E/E' med: 17.0 PA mean P.5 mmHg Lat Peak E' Tony: 8.5 cm/sec PA pr(Accel): 48.2 mmHg E/E' lat: 10.8 E/e' average: 13.9 MV dec time: 0.15 sec SV(LVOT): 58.1 ml Reading Physician:04:10 PM
== END ==
LOC: ECHO 13:46
PROVIDERS: Family Provider Family Medicine; PCP Family Medicine; Referring Provider Specialist; Visit Provider Specialist
DX: I08.1 Rheumatic disorders of both mitral and tricuspid valves (principal); I77.89 Other specified disorders of arteries and arterioles; H54.3 Unqualified visual loss, both eyes; Z95.2 Presence of prosthetic heart valve
CPT/HCPCS: 93306

== ENCOUNTER → 2023-09-01 14:26 | Outpatient (CLI) | payer OTHER, SELFPAY ==
[2019-07-28 16:02] VITALS: BMI 31.2
[2023-09-01 15:12] LABS: Hematocrit 45.4 % (41-53); Mean Corpuscular Hemoglobin 29.9 PG (26-34); Mean Corpuscular Volume 90.6 fL (80-100); Platelet Count 168 X10^3/uL (150-400); Red Blood Cell Count 5.02 X10^6/uL (4.5-5.9); White Blood Cell Count 8.2 X10^3/uL (4.5-11.0)
[2023-09-01 15:56] LABS: Alanine Aminotransferase 34 IU/L (<50); Albumin 3.5 g/dL (3.5-5.0); Alkaline Phosphatase 53 U/L (38-126); Aspartate Aminotransferase 35 IU/L (17-59); BUN Creatinine Ratio 17.2 (6-22); Bilirubin Total 0.8 mg/dL (0.2-1.3); Blood Urea Nitrogen 21 mg/dL (9-20); Calcium 8.9 mg/dL (8.4-10.2); Carbon Dioxide 25 mmol/L (22-32); Chloride 110 mmol/L (98-107); Estimated Glomerular Filt Rate 58 mL/min (>60); Globulin 3.6 g/dL (1.7-4.1); Glucose 149 mg/dL (80-110); HEMOLYSIS < 15 (0-50); Magnesium 1.8 mg/dL (1.6-2.3); Potassium 4.3 mmol/L (3.4-5.1); Sodium 141 mmol/L (137-145); Total Protein 7.1 g/dL (6.3-8.2)
== END ==
PROVIDERS: Family Provider Family Medicine; PCP Family Medicine; Referring Provider Specialist; Visit Provider Specialist
DX: I49.3 Ventricular premature depolarization (principal); I48.0 Paroxysmal atrial fibrillation
CPT/HCPCS: 36415; 80053; 83735; 85027

== ENCOUNTER 2024-05-24 12:03 | Emergency (ER) | payer OTHER, SELFPAY ==
[2019-07-28 16:02] VITALS: BMI 31.2
[2024-05-24] VITALS (15 sets, daily range): BP systolic 92–135; BP diastolic 51–75; PULSE 60–84; RESP 14–28; TEMP 36.4; O2SAT 96–100; BMI 32.8
--- NOTE | 2024-05-24 12:20 | DI.RAD.S_ITS ---
PROCEDURE: XR CHEST 1V INDICATIONS: chest pain TECHNIQUE: One view of the chest was acquired. COMPARISON: [facility], CR, XR CHEST 1V, 06/02/2022, 11:11. FINDINGS: Surgical changes and devices: Dual lead left-sided transvenous pacemaker. Surgical changes in the right neck. Lungs and pleura: Asymmetric left hemidiaphragm elevation. No focal consolidation, effusion, or pneumothorax. Mediastinum: Mediastinal contours appear normal. Heart size is normal. Slight prominence of central venous structures. Bones and chest wall: No suspicious bony lesions. Overlying soft tissues appear unremarkable. IMPRESSION: Slight prominence of central venous structures may be due to technical artifact or indicate early venous congestion. Correlate with BNP. Dictated by: Lucy Banerjee M.D. on 05/24/2024 at 13:08 Approved by: Lucy Banerjee M.D. on 05/24/2024 at 13:09
--- NOTE | 2024-05-24 12:20 | EKG_ITS ---
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
[2024-05-24 13:05] LABS: Add Manual Diff / Slide Review NO; Basophils Absolute Auto 0 /uL (0-100); Basophils Percent Auto 0.4 % (0-2); Eosinophils Absolute Auto 100 /uL (0-450); Eosinophils Percent Auto 1.5 % (2-4); Hematocrit 46.2 % (41-53); Hemoglobin 15.4 g/dL (13.5-17.5); Lymphocytes Absolute Auto 2600 /uL (1100-4500); Lymphocytes Percent Auto 29.2 % (25-40); Mean Corpuscular HGB Conc 33.4 % (30-36); Mean Corpuscular Hemoglobin 30.4 PG (26-34); Mean Corpuscular Volume 90.9 fL (80-100); Monocytes Absolute Auto 1000 /uL (0-900); Monocytes Percent Auto 11.3 % (3-14); Neutrophils Absolute Auto 5200 /uL (1500-7000); Neutrophils Percent Auto 57.6 % (50-75); Platelet Count 176 X10^3/uL (150-400); Red Blood Cell Count 5.09 X10^6/uL (4.5-5.9); Red Cell Distribution Width 13.9 % (11.6-14.8); White Blood Cell Count 9.1 X10^3/uL (4.5-11.0)
[2024-05-24 13:09] LABS: INR 1.2 (0.9-1.3)
[2024-05-24 13:11] LABS: PTT Partial Thromboplastin Tim 41 SECONDS (25.1-36.5)
[2024-05-24 13:13] LABS: Alanine Aminotransferase 45 IU/L (<50); Albumin 3.8 g/dL (3.5-5.0); Albumin Globulin Ratio 1.1 (1.0-2.8); Alkaline Phosphatase 53 U/L (38-126); Aspartate Aminotransferase 50 IU/L (17-59); BUN Creatinine Ratio 22.4 (6-22); Bilirubin Total 0.8 mg/dL (0.2-1.3); Blood Urea Nitrogen 24 mg/dL (9-20); Carbon Dioxide 28 mmol/L (22-32); Chloride 104 mmol/L (98-107); Creatine Kinase 89 U/L (55-170); Estimated Glomerular Filt Rate > 60 mL/min (>60); Globulin 3.5 g/dL (1.7-4.1); Glucose 189 mg/dL (80-110); HEMOLYSIS 16 (0-50); Lipase 111 U/L (23-300); Magnesium 1.8 mg/dL (1.6-2.3); Potassium 4.1 mmol/L (3.4-5.1); Sodium 137 mmol/L (137-145); Total Protein 7.3 g/dL (6.3-8.2)
--- NOTE | 2024-05-24 13:23 | ED.ARRPALP ---
HPI - Arrhythmia/Palpitations General Chief Complaint: Arrhythmia/Palpitations Stated Complaint: heart issues Time Seen by Provider: 05/24/24 13:22 Source: patient Mode of arrival: Ambulatory History of Present Illness HPI narrative: 83-year-old male with history of CAD, status post 4 prior stents, 2 sets of stents placed 2016, 2 sets stents placed 2019, does not recall date of his last stress test, no recent or post stent heart catheterization recalled. History of pacemaker status post November 2023 Bernal device, does not believe that it is a defibrillator device. Status post TAVR placement [facility] 2016. Woke up this morning 1000 with left parasternal chest discomfort, nonradiating, no associated dyspnea or diaphoresis or nausea. No treatment tried, pain resolved without specific treatment pror to arrival Related Data Home Medications Medication Instructions Recorded Confirmed glipizide 10 mg tablet, extended 2 tab PO QACBREAK 11/08/17 09/23/23 release 24 hr metformin 500 mg tablet 500 mg PO BIDAC 11/08/17 09/23/23 apixaban 5 mg tablet 5 mg PO BID 07/28/19 09/23/23 aspirin 81 mg tablet,delayed 81 mg PO DAILY 07/28/19 09/23/23 release (Adult Low Dose Aspirin) brimonidine 0.15 % eye drops 1 drp EYE-BOTH BID 07/28/19 09/23/23 cholecalciferol (vitamin D3) 50 2,000 unit PO DAILY 07/28/19 09/23/23 mcg (2,000 unit) tablet clopidogrel 75 mg tablet 75 mg PO DAILY 07/28/19 09/23/23 coenzyme Q10 100 mg capsule 100 mg PO DAILY 07/28/19 09/23/23 dorzolamide 2 %-timolol 0.5 % (PF) 1 drp ophthalmic (eye) BID 07/28/19 09/23/23 eye drops insulin glargine 100 unit/mL 13 unit SUBCUT BID 07/28/19 09/23/23 subcutaneous solution (Lantus U-100 Insulin) latanoprost 0.005 % eye drops 1 drp ophthalmic (eye) BEDTIME 07/28/19 09/23/23 lisinopril 2.5 mg tablet 2.5 mg PO DAILY 07/28/19 09/23/23 metoprolol succinate 25 mg 12.5 mg PO DAILY 07/28/19 09/23/23 tablet,extended release 24 hr pantoprazole 20 mg tablet,delayed 20 mg PO DAILY 07/28/19 09/23/23 release rosuvastatin 40 mg tablet 40 mg PO BEDTIME 07/28/19 09/23/23 spironolactone 25 mg tablet 12.5 mg PO DAILY 07/28/19 09/23/23 Previous Rx's Medication Instructions Recorded furosemide 20 mg tablet 20 mg PO DAILY #30 tabs 07/31/19 cyclobenzaprine 10 mg tablet 10 mg PO TID PRN muscle spasm #30 05/03/22 tabs hydrocodone 5 mg-acetaminophen 325 1 tab PO Q8H PRN pain #20 tabs 05/03/22 mg tablet metoprolol tartrate 25 mg tablet 25 mg PO BID #60 tabs 06/02/22 Allergies Allergy/AdvReac Type Severity Reaction Status Date / Time sulfamethoxazole Allergy Intermediate Verified 09/23/23 10:42 [From Bactrim] trimethoprim [From Bactrim] Allergy Intermediate Verified 09/23/23 10:42 Review of Systems Review of Systems Narrative: see HPI Patient History Medical History (Updated 05/24/24 @ 16:43 by Saravanan Guzmán MD) Hypertension Hyperlipidemia Coronary artery disease Diabetes Social History household members: spouse Smoking Status: Never smoker alcohol intake: never Smoking Status: Never smoker alcohol intake frequency: 0-2 drinks per day Substance Use Type: does not use Exam Narrative Exam Narrative: GENERAL: Well-developed patient, in mild distress. HEAD: Atraumatic. Normocephalic. EYES: Pupils equal round and reactive. Extraocular motions intact. No scleral icterus. No injection or drainage. ENT: Nose without bleeding, purulent drainage. Throat without erythema, tonsillar hypertrophy or exudate. Airway patent. NECK: Trachea midline. Non tender CARDIOVASCULAR: Regular rate and rhythm without murmurs, gallops, or rubs. RESPIRATORY: Clear to auscultation. Breath sounds equal bilaterally. No wheezes, rales, or rhonchi. GASTROINTESTINAL: Abdomen soft, non-tender, nondistended. EXTREMITIES: No edema or joint tenderness. BACK: Nontender without deformity or crepitance. No flank tenderness. NEURO: AOx3. Motor functions grossly nonfocal SKIN: No rash or erythema of visible areas Initial Vital Signs Initial Vital Signs: Vital Signs Temperature 97.5 F L 05/24/24 12:10 Pulse Rate 65 05/24/24 12:10 Respiratory Rate 14 05/24/24 12:10 Blood Pressure 131/70 05/24/24 12:10 Pulse Oximetry 98 05/24/24 12:10 Oxygen Delivery Method Room Air 05/24/24 12:10 Course Orders Ordered: Discontinued Medications Aspirin (Aspirin 81 Mg Chew Tab) 324 mg PO NOW ONE Stop: 05/24/24 12:20 Last Admin: 05/24/24 13:10 Dose: Not Given Documented By: RB Sodium Chloride (Normal Saline 0.9%) 1,000 mls @ 1,000 mls/hr IV BOLUS ONE Stop: 05/24/24 15:55 Last Admin: 05/24/24 15:50 Dose: Not Given Documented By: MPO Vital Signs Vital signs: Vital Signs - 8 hr 05/24/24 12:10 05/24/24 12:45 05/24/24 12:45 Temperature 97.5 F L Pulse Rate 65 84 Respiratory Rate 14 16 Blood Pressure 131/70 135/75 Pulse Oximetry 98 97 Oxygen Delivery Method Room Air 05/24/24 12:55 05/24/24 12:55 05/24/24 13:00 Temperature Pulse Rate 68 67 Respiratory Rate 28 H 28 H Blood Pressure 131/65 Pulse Oximetry 98 99 Oxygen Delivery Method 05/24/24 13:01 05/24/24 13:01 05/24/24 13:30 Temperature Pulse Rate 67 62 Respiratory Rate 21 16 Blood Pressure 129/62 Pulse Oximetry 98 97 Oxygen Delivery Method 05/24/24 13:31 05/24/24 13:31 05/24/24 14:00 Temperature Pulse Rate 61 73 Respiratory Rate 19 27 H Blood Pressure 92/51 L Pulse Oximetry 96 99 Oxygen Delivery Method 05/24/24 14:02 05/24/24 14:02 05/24/24 14:30 Temperature Pulse Rate 60 65 Respiratory Rate 17 18 Blood Pressure 127/61 Pulse Oximetry 99 98 Oxygen Delivery Method 05/24/24 14:31 05/24/24 14:31 05/24/24 15:00 Temperature Pulse Rate 64 66 Respiratory Rate 18 20 Blood Pressure 113/60 Pulse Oximetry 98 100 Oxygen Delivery Method 05/24/24 15:00 05/24/24 15:30 05/24/24 15:30 Temperature Pulse Rate 76 Respiratory Rate Blood Pressure 120/65 114/68 Pulse Oximetry Oxygen Delivery Method 05/24/24 15:39 05/24/24 15:39 05/24/24 16:00 Temperature Pulse Rate 65 64 Respiratory Rate 24 17 Blood Pressure 129/60 Pulse Oximetry 99 98 Oxygen Delivery Method 05/24/24 16:00 Temperature Pulse Rate Respiratory Rate Blood Pressure 126/67 Pulse Oximetry Oxygen Delivery Method MDM - Arrhythmia/Palpitations Lab Data Attestation: I reviewed the patient's lab results. Lab results narrative: White blood cell count 9100, hemoglobin 15.4, platelets [id number], basic metabolic panel unremarkable. Liver functions unremarkable. Lipase negative. Initial troponin negative/unmeasurable 05/24/24 12:54 05/24/24 12:54 Labs: Lab Results 05/24/24 05/24/24 05/24/24 Range/Units 12:52 12:54 15:42 WBC 9.1 (4.5-11.0) X10^3/uL RBC 5.09 (4.5-5.9) X10^6/uL Hgb 15.4 (13.5-17.5) g/dL Hct 46.2 (41-53) % MCV 90.9 (80-100) fL MCH 30.4 (26-34) PG MCHC 33.4 (30-36) % RDW 13.9 (11.6-14.8) % Plt Count 176 (150-400) X10^3/uL Neut % (Auto) 57.6 (50-75) % Lymph % (Auto) 29.2 (25-40) % [place] % (Auto) 11.3 (3-14) % Eos % (Auto) 1.5 L (2-4) % Baso % (Auto) 0.4 (0-2) % Neut # (Auto) 5200 (3172-8320) /uL Lymph # (Auto) 2600 (2986-4063) /uL [place] # (Auto) 1000 H (0-900) /uL Eos # (Auto) 100 (0-450) /uL Baso # (Auto) 0 (0-100) /uL PT 14.0 H (9.4-12.5) SECONDS INR 1.2 (0.9-1.3) APTT 41 H (25.1-36.5) SECONDS Sodium 137 (137-145) mmol/L Potassium 4.1 (3.4-5.1) mmol/L Chloride 104 (98-107) mmol/L Carbon Dioxide 28 (22-32) mmol/L BUN 24 H (9-20) mg/dL Creatinine 1.07 (0.66-1.25) mg/dL Estimated GFR > 60 (>60) mL/min BUN/Creatinine Ratio 22.4 H (6-22) Glucose 189 H (80-110) mg/dL Lactate 1.1 (0.7-2.1) mmol/L Calcium 9.0 (8.4-10.2) mg/dL Magnesium 1.8 (1.6-2.3) mg/dL Total Bilirubin 0.8 (0.2-1.3) mg/dL AST 50 (17-59) IU/L ALT 45 (<50) IU/L Alkaline Phosphatase 53 (38-126) U/L Total Creatine Kinase 89 (55-170) U/L Troponin I < 0.012 < 0.012 (0.01-0.034) ng/mL NT-Pro-B Natriuret Pep 732 H (<450) pg/mL Total Protein 7.3 (6.3-8.2) g/dL Albumin 3.8 (3.5-5.0) g/dL Globulin 3.5 (1.7-4.1) g/dL Albumin/Globulin Ratio 1.1 (1.0-2.8) Lipase 111 (23-300) U/L Urine Dip Bedside Urine Glucose 250 mg/dl Bedside Urine Bilirubin - Negative Bedside Urine Ketone - Negative Urine Specific [place] 1.010 Bedside Urine Occult Blood - Negative Bedside Urine pH 5.0 Bedside Urine Protein - Negative Bedside Urine Urobilinogen - Negative Bedside Urine Nitrite - Negative Bedside Urine Leukocytes +/- 15 Esterase Imaging Data Chest x-ray: Radiologist's Impresson: [address] [address] XRay Report Signed Patient: Jason Ty MR#: [id number] : 1940 Acct:[id number] Age/Sex: 83 / M Date of Service: 05/24/24 Loc: ED Accession Number: [id number] Procedure: XR chest 1V Ordering Provider: Saravanan Guzmán MD PROCEDURE: XR CHEST 1V INDICATIONS: chest pain TECHNIQUE: One view of the chest was acquired. COMPARISON: [facility], CR, XR CHEST 1V, 06/02/2022, 11:11. FINDINGS: Surgical changes and devices: Dual lead left-sided transvenous pacemaker. Surgical changes in the right neck. Lungs and pleura: Asymmetric left hemidiaphragm elevation. No focal consolidation, effusion, or pneumothorax. Mediastinum: Mediastinal contours appear normal. Heart size is normal. Slight prominence of central venous structures. Bones and chest wall: No suspicious bony lesions. Overlying soft tissues appear unremarkable. IMPRESSION: Slight prominence of central venous structures may be due to technical artifact or indicate early venous congestion. Correlate with BNP. Dictated by: Lucy Banerjee M.D. on 05/24/2024 at 13:08 Approved by: Lucy Banerjee M.D. on 05/24/2024 at 13:09 ECG Data Attestation: I personally reviewed and interpreted this ECG as follows: Interpretation: Atrial paced rhythm with prolonged AV conduction, ventricular response rate 77. PA 312, QRS 102, QTC 470. MDM Narrative Medical decision making narrative: 83-year-old male with history of CAD, prior coronary artery stents, status post prior TAVR, pacemaker, complains of left anterior chest pain onset at rest 10:00 a.m., lasting 3 hours or so, resolved without specific treatment. Here for further evaluation. no chest pain, no shortness of breath. Afebrile, sirs screen negative. No chest wall tenderness. Lungs clear, no obvious edema. No respiratory distress. Chest x-ray unremarkable. EKG without obvious ischemic changes, some paced beats noted. Troponin negative/unmeasurable. We will repeat interval study. Repeat troponin also negative/unmeasurable. Patient would like to go home, further testing and evaluation as an outpatient for now. 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 Return precautions discussed, home with son Discharge Plan Departure Patient Disposition: Home Clinical Impression: Chest pain Activity Restrictions/Additional Instructions: History of coronary artery disease status post multiple previous coronary stenting, history of pacemaker, history of TAVR. Left-sided chest discomfort earlier today for a few hours duration resolved spontaneously. EKG shows some paced beats, no obvious heart attack changes. Serial blood tests not suggestive of heart attack at this time. No chest pain while evaluated here in the emergency department. 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 Swain. Please call office of your duct layer supervisor tomorrow Tuesday during regular hours to arrange close follow up. Continue your current medication regimen for now. Return for any further chest discomfort symptoms. Return to this/nearest emergency department for any change worsening symptoms or any concerns prior Prescriptions: No Action metformin 500 mg tablet 500 mg PO BIDAC Patient Comments: take 1 tablet by mouth twice a day BEFORE MEALS glipizide 10 mg tablet extended release 24hr 2 tab PO QACBREAK latanoprost 0.005 % Drops 1 drp OPHTHALMIC (EYE) BEDTIME Lantus U-100 Insulin 100 unit/mL Solution 13 unit SUBCUT BID aspirin [Adult Low Dose Aspirin] 81 mg Tablet,Delayed Release (Dr/Ec) 81 mg PO DAILY spironolactone 25 mg Tablet 12.5 mg PO DAILY pantoprazole 20 mg Tablet,Delayed Release (Dr/Ec) 20 mg PO DAILY metoprolol succinate 25 mg Tablet Extended Release 24 Hr 12.5 mg PO DAILY lisinopril 2.5 mg Tablet 2.5 mg PO DAILY brimonidine 0.15 % Drops 1 drp EYE-BOTH BID coenzyme Q10 100 mg Capsule 100 mg PO DAILY rosuvastatin 40 mg Tablet 40 mg PO BEDTIME apixaban 5 mg Tablet 5 mg PO BID dorzolamide-timolol (PF) 2-0.5 % Drops 1 drp OPHTHALMIC (EYE) BID clopidogrel 75 mg Tablet 75 mg PO DAILY cholecalciferol (vitamin D3) 2,000 unit Tablet 2,000 unit PO DAILY furosemide 20 mg tablet 20 mg PO DAILY Qty: 30 1RF Rx Instructions: please take in am if weight increased greater than 2 pounds over 1-2 days metoprolol tartrate 25 mg tablet 25 mg PO BID Qty: 60 1RF cyclobenzaprine 10 mg tablet 10 mg PO TID PRN (Reason: muscle spasm) Qty: 30 0RF hydrocodone-acetaminophen 5-325 mg tablet 1 tab PO Q8H PRN (Reason: pain) Qty: 20 0RF Referrals: Ian Manning MD [Primary Care Provider] - [place] [Non-Staff] - Stand Alone Forms: Patient Portal/API/Survey
[2024-05-24 13:24] LABS: NT-proBNP (BNP-Adult 18+) 732 pg/mL (<450); Troponin I < 0.012 ng/mL (0.01-0.034)
[2024-05-24 15:06] LABS: Lactate (Lactic Acid) 1.1 mmol/L (0.7-2.1)
--- NOTE | 2024-05-24 15:48 | PC.NURSE ---
Pt tolerating PO fluids. Declined IV fluids.
[2024-05-24 16:19] LABS: Troponin I < 0.012 ng/mL (0.01-0.034)
== END 2024-05-24 16:48 | disposition home or self-care (01) ==
PROVIDERS: Emergency Provider Emergency Medicine; Family Provider Family Medicine; PCP Family Medicine
DX: R07.9 Chest pain, unspecified (principal); I25.10 Atherosclerotic heart disease of native coronary artery without angina pectoris; Z95.5 Presence of coronary angioplasty implant and graft; Z95.0 Presence of cardiac pacemaker; Z95.2 Presence of prosthetic heart valve
CPT/HCPCS: 36415; 71045; 80053; 81003; 82550; 83605; 83690; 83735; 83880; 84484; 85025; 85610; 85730; 93005; 99284

== ENCOUNTER → 2024-07-04 12:51 | Outpatient (CLI) | payer OTHER, SELFPAY ==
[2019-07-28 16:02] VITALS: BMI 31.2
--- NOTE | 2024-07-04 12:52 | DI.US.S_ITS ---
PROCEDURE: US CAROTID DOPPLER BI INDICATIONS: TAVR/ stenosis left carotid artery TECHNIQUE: Color and pulse Doppler interrogation was performed of both carotid systems, with image documentation and velocity measurements. COMPARISON: None. FINDINGS: Stenosis calculations are based on SRU (Society of Radiologists in Ultrasound) criteria. Right side: Brachial blood pressure: 130/80 mm Hg. Common carotid artery peak systolic velocity: 62 cm/sec. Internal carotid artery peak systolic velocity: 80 cm/sec. Internal carotid artery end diastolic velocity: 32 cm/sec. External carotid artery peak systolic velocity: 69 cm/sec. ICA/CCA peak systolic ratio: 1.3 Frank scale imaging description: Calcified and noncalcified plaque in the right carotid bulb causing mild subjective luminal stenosis of the ICA origin. The waveforms are normal. Cardiac rhythm is irregular. Percent internal carotid artery stenosis: Less than 50% . Vertebral artery: Flow direction is antegrade. Left side: Brachial blood pressure: 124 were 72 mm Hg. Common carotid artery peak systolic velocity: 51 cm/sec. Internal carotid artery peak systolic velocity: 160 cm/sec. Internal carotid artery end diastolic velocity: 38 cm/sec. External carotid artery peak systolic velocity: 113 cm/sec. ICA/CCA peak systolic ratio: 3.2 . Frank scale imaging description: Coarse calcified and noncalcified plaque in the distal common carotid artery and extensive irregular only partially calcified plaque in the carotid bulb causing tandem stenoses. Moderate stenosis at the internal and external carotid artery origins. There is spectral broadening of the proximal ICA waveform. Waveforms maintain otherwise normal morphology. Percent internal carotid artery stenosis: 50-69% . Vertebral artery: Flow direction is antegrade. IMPRESSION: 1. In the right carotid artery, there is less than 50% stenosis based on peak systolic velocity criteria. 2. In the left carotid artery, there is 50-69% stenosis based on peak systolic velocity criteria. 3. Antegrade vertebral arteries. 4. Irregular heart rhythm. Correlate with EKG. Dictated by: Lucy Banerjee M.D. on 07/04/2024 at 21:21 Approved by: Lucy Banerjee M.D. on 07/04/2024 at 21:25
--- NOTE | 2024-07-04 12:53 | DI.ECHO.S_ITS ---
[facility] : : [address] : : [place] : : [id number] : : Phone: [phone] Echocardiogram Report + + :Name: DAVID COATES Study Date: 07/04/2024 Height: 68.5 in: :[facility] ReadingLocation: Weight: 219 lb : : Gender: Male BSA: 2.1 m2 : :: 1940 Age: 83 yrs BP: 130/80 mmHg: :Reason For Study: TAVR : :Ordering Physician: LINDA, : :MARCELLA Performed By: Yusra Cisneros : :Referring: MARCELLA MCKEON : + + Interpretation Summary Left ventricular systolic function remains moderate to severely reduced with an estimated ejection fraction of 30 to 40% with considerable odsa-ad-rkyg variability and marginal image quality. Unfortunately, IV access was not possible to allow for Definity contrast or biplane analysis. There is a significant dyssynchronous contraction pattern with moderate to severe global hypokinesis, worse in the septum and apex, that appears identical to the previous exam and overall contractility appears similar, perhaps slightly decreased compared to the previous study. There now is evidence for a diastolic relaxation abnormality with reversal of the E/A ratio, and filling pressures are likely slightly lower compared to the previous exam. The right ventricle remains mildly enlarged with borderline reduced systolic function but unchanged from a previous study. Right ventricular systolic pressure is estimated at 30 mmHg with a CVP of 3 mmHg, similar to the previous study, perhaps slightly lower. Both atria are normal size and measure slightly smaller. There is trace mitral and mild tricuspid regurgitation, and both are slightly less prominent compared to the previous study. The bioprosthetic aortic valve appears similar with a peak aortic velocity of 2.2 m/s and a mean gradient of 11 mmHg, compared to 2.0 m/s and 9 mmHg, respectively, on the previous exam. The severity ratio has decreased from 0.41 down to 0.34. The ascending aorta and aortic arch are moderately enlarged at 4.6 cm and 3.7 cm, respectively, but measure identical to the previous exam. The patient was in a regular rhythm but with frequent PVCs that were more prominent compared to the previous exam. Procedure: A two-dimensional transthoracic echocardiogram with color flow and Doppler was performed. Comparison is made with the echocardiogram of 06/30/2023. The study quality was technically difficult. The patient was in sinus rhythm with heart rates between 62-77 bpm during the exam. The patient had frequent PVCs during the exam. Left Ventricle: The left ventricle is mildly dilated. There is normal left ventricular wall thickness. This is grossly unchanged compared to the previous study. Left ventricular systolic function is moderate to severely reduced. Left ventricular ejection fraction is estimated to be 30 to 40% with considerable pvye-yv-qyag variability. There is a significant dyssynchronous contraction pattern due to the paced rhythm. There is moderate global hypokinesis of the left ventricle. This is worse in the septum and apical segments but appears unchanged from the previous study. Global contractility is similar, perhaps slightly decreased from the previous exam. Diastolic parameters suggest a relaxation abnormality of the left ventricle, consistent with probable normal filling pressures. This is likely lower compared to the previous study. Right Ventricle: There is a pacemaker lead in the right ventricle. The right ventricle is mildly dilated. Right ventricular systolic function is at the lower limits of normal. This is unchanged compared to the previous study. Atria: Both atria are normal in size. Both atria have mildly decreased in size since the prior echo exam. There is a catheter/pacemaker lead seen in the right atrium. There is no Doppler evidence for an interatrial shunt. Mitral Valve: There is mild to moderate mitral annular calcification. The mitral valve leaflets appear mildly thickened, but open well. There is trace mitral regurgitation. This is slightly less prominent compared to the previous study. 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 The prosthetic aortic valve is not well visualized. The prosthetic aortic valve is well-seated. The peak aortic velocity is 2.2 m/sec. The peak aortic velocity on the previous exam was 2.0 m/sec. The aortic valve mean gradient is 11 mmHg compared to the previous 9 mmHg. The calculated aortic valve area is 1.1 cm2. The severity ratio has decreased from 0.41 down to 0.34. No aortic regurgitation is present. Tricuspid Valve: The tricuspid valve is not well visualized. There is mild tricuspid regurgitation. This is slightly less prominent compared to the previous study. The right ventricular systolic pressure is estimated to be at least 30 mmHg based on an estimated right atrial pressure of 3 mm Hg. This is unchanged compared to the previous study. Pulmonic Valve: The pulmonic valve leaflets are thin and pliable; valve motion is normal. There is no pulmonic valvular regurgitation. Great Vessels: The ascending aorta is moderate-severely enlarged. The aortic arch is moderately enlarged. This is identical compared to the previous study. The IVC is of normal diameter and collapses greater than 50% with a sniff. This suggests a low right atrial pressure of 3 mm Hg. Pericardium/ Pleura There is no pericardial effusion. There is no pleural effusion. MMode/2D Measurements & Calculations LVIDd: 5.8 cm LVOT diam: 2.1 cm LVIDs: 5.0 cm Ao root diam: 2.8 cm FS: 14.6 % asc Aorta Diam: 4.6 cm IVSd: 0.77 cm Ao Arch Diam (Prox Trans): 3.7 cm LVPWd: 0.85 cm LV solano. diameter/BSA (cm/m^2): 2.7 LV sys. diameter/BSA (cm/m^2): 2.3 LA A2 area: 21.8 cm2 RA long axis: 5.7 cm LA A4 area: 18.8 cm2 RA area: 17.0 cm2 LA length (vol): 5.9 cm RA vol: 43.0 ml LA vol: 58.7 ml RA : 20.1 ml/m2 LA vol index: 27.4 ml/m2 IVC diam: 1.7 cm RVD1 (basal): 4.2 cm TAPSE: 2.2 cm Doppler Measurements & Calculations Ao V2 max: 221.0 cm/sec LVOT Max Tony: 72.1 cm/sec Ao V2 mean: 142.6 cm/sec LV V1 max P.1 mmHg Ao max P.6 mmHg LV V1 VTI: 15.2 cm Ao mean P.0 mmHg JANA(I,D): 1.2 cm2 Ao V2 VTI: 45.0 cm JANA(V,D): 1.1 cm2 sev ratio: 0.34 JANA indexed to BSA (cm^2/m^2): 0.55 MV E max tony: 60.1 cm/sec TR max tony: 259.3 cm/sec MV A max tony: 102.4 cm/sec TR max P.9 mmHg MV E/A: 0.59 PA V2 max: 78.8 cm/sec Med Peak E' Tony: 6.2 cm/sec PA V2 mean: 54.4 cm/sec E/E' med: 9.7 PA mean P.3 mmHg Lat Peak E' Tony: 8.6 cm/sec PA pr(Accel): 20.8 mmHg E/E' lat: 7.0 E/e' average: 8.3 MV dec time: 0.21 sec MVA(VTI): 1.7 cm2 MV V2 mean: 59.1 cm/sec SV(LVOT): 53.0 ml MV mean P.6 mmHg MV V2 VTI: 31.1 cm Reading Physician:05:22 PM
== END ==
PROVIDERS: Family Provider Family Medicine; PCP Family Medicine; Referring Provider Specialist; Visit Provider Specialist
DX: I65.23 Occlusion and stenosis of bilateral carotid arteries (principal); I08.1 Rheumatic disorders of both mitral and tricuspid valves; I77.89 Other specified disorders of arteries and arterioles; Z95.2 Presence of prosthetic heart valve; Z95.0 Presence of cardiac pacemaker
CPT/HCPCS: 93306; 93880

== ENCOUNTER → 2024-07-11 13:43 | Outpatient (CLI) | payer OTHER, SELFPAY ==
[2019-07-28 16:02] VITALS: BMI 31.2
--- NOTE | 2024-07-11 13:44 | DI.NM.S_ITS ---
PROCEDURE: NM FREDDY PERF SPECT R&S PHARM Rest and pharmacological stress myocardial perfusion SPECT with gated imaging and ejection fraction RADIOPHARMACEUTICAL: 25.6 mCi Tc-99m tetrafosmin IV at rest and 25.3 mCi Tc-99m tetrafosmin IV at peak effect of pharmacological stress. Zaq-rvd-yemjskbn was performed. INDICATIONS: HX OF STEM,CHEST PAIN PQRS ATTESTATIONS: Measure 322 - Is this imaging test primarily performed on a low-risk surgery patient for preoperative evaluation within 30 days preceding their low-risk non-cardiac surgery? Low-risk surgery is defined as cardiac or myocardial infarction less than 1%, including (but not limited to) endoscopic procedures, superficial procedures, cataract surgery, and excisional breast surgery: Answer: No Measure 323 - Is this imaging test performed primarily for the monitoring of an asymptomatic patient who had percutaneous coronary intervention on the visit date or within 2 years of the visit date? Answer: No Measure 324 - Is this imaging test performed primarily for the initial detection and risk assessment on an asymptomatic, low coronary heart disease patient? Low CHD risk definition = clinicians should consider the maximum number of available patient factors used to estimate risk based on [place] (ATP III criteria), typically age, gender, diabetes, smoking status, and use of blood pressure medication, and integrate age appropriate estimates for missing elements, such as LDL or standard blood pressure. Answer: No TECHNIQUE: Radiopharmaceutical was injected at peak stress test, and also at rest. SPECT images were obtained. SPECT myocardial perfusion images were displayed in short axis, horizontal long axis, and vertical long axis views. Gated images were reviewed using [employer]tree[employer] software. COMPARISON: None. CARDIAC STRESS: A pharmacologic stress test was performed under the supervision of an attending staff, using an infusion of 0.4 mg of Lexiscan. Hemodynamic data: There is normal blood pressure and heart rate response to pharmacologic stress. Symptoms: The patient denied anginal chest pain. Aminophylline: No EKG: No diagnostic changes of ischemia; occasional PVCs noted throughout the entire stress test. FINDINGS: Raw data: There is good myocardial uptake of radiotracer. No significant motion artifacts. Cosq-lo-nsjyq ratio is 0.29 (normal is less than 0.38 for tetrafosmin tracer). Left ventricle function: Gated images demonstrate normal left ventricular wall thickening. No segmental wall motion abnormalities. No transient ischemic dilation; TID is 1.06 (normal less than 1.3). Left ventricle resting end diastolic volume is 154 mL. Left ventricle stress ejection fraction is 38%; normal range is above 45%. Myocardial perfusion: Rest images has no perfusion in the apical segment and severe hypoperfusion in the distal anterior segment. Stress images demonstrated the same perfusion defects. There may be slight worsening of the perfusion in the distal anterior segment. No prone images available SDS score is 0. IMPRESSION: 1. Abnormal Lexiscan myocardial perfusion scan. 2. 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 Dictated by: Hai Kaur M.D. on 07/12/2024 at 16:28 Approved by: Hai Kaur M.D. on 07/12/2024 at 16:32
== END ==
PROVIDERS: Family Provider Family Medicine; PCP Family Medicine; Referring Provider Family Medicine; Visit Provider Family Medicine
DX: R07.89 Other chest pain (principal); I25.2 Old myocardial infarction; R94.39 Abnormal result of other cardiovascular function study
CPT/HCPCS: 78452; 93017; A9502; J2785

== ENCOUNTER → 2025-01-10 09:21 | Outpatient (CLI) | payer OTHER, SELFPAY ==
[2019-07-28 16:02] VITALS: BMI 31.2
[2025-01-10 10:15] LABS: Add Manual Diff / Slide Review NO; Hematocrit 43.6 % (41-53); Hemoglobin 14.6 g/dL (13.5-17.5); Lymphocytes Absolute Auto 2300 /uL (1100-4500); Mean Corpuscular HGB Conc 33.6 % (30-36); Mean Corpuscular Hemoglobin 30.5 PG (26-34); Mean Corpuscular Volume 90.9 fL (80-100); Platelet Count 170 X10^3/uL (150-400)
[2025-01-10 10:22] LABS: Hemoglobin A1C% w Est Avg Glu 8.2 % (4.0-6.0)
[2025-01-10 10:28] LABS: Alanine Aminotransferase 29 IU/L (<50); Albumin 3.5 g/dL (3.5-5.0); Albumin Globulin Ratio 1.2 (1.0-2.8); Alkaline Phosphatase 46 U/L (38-126); Blood Urea Nitrogen 23 mg/dL (9-20); Calcium 8.8 mg/dL (8.4-10.2); Carbon Dioxide 23 mmol/L (22-32); Chloride 107 mmol/L (98-107); Estimated Glomerular Filt Rate > 60 mL/min (>60); Globulin 3.0 g/dL (1.7-4.1); Glucose 142 mg/dL (70-99); HEMOLYSIS 17 (0-50); Magnesium 1.8 mg/dL (1.6-2.3); Potassium 4.6 mmol/L (3.4-5.1); Sodium 137 mmol/L (137-145); Total Protein 6.5 g/dL (6.3-8.2)
[2025-01-13 12:12] LABS: Cholesterol, Total 133 mg/dL (100-199); HDL-Particle (Total) 30.9 umol/L (>=30.5); Historical Reading Comment: (.); LDL Particle 793 nmol/L (<1000); LDL-Cholsterol 60 mg/dL (0-99); Small LDL- Particle 408 nmol/L (<=527); Triglycerides 154 mg/dL (0-149)
== END ==
PROVIDERS: Family Provider Family Medicine; PCP Family Medicine; Referring Provider Family Medicine; Visit Provider Specialist
DX: E78.2 Mixed hyperlipidemia (principal); I48.0 Paroxysmal atrial fibrillation; I25.10 Atherosclerotic heart disease of native coronary artery without angina pectoris; Z79.01 Long term (current) use of anticoagulants
CPT/HCPCS: 36415; 80053; 80061; 83036; 83704; 83735; 85025

== ENCOUNTER 2025-04-03 12:48 | Observation (INO) | payer OTHER, SELFPAY ==
[2019-07-28 16:02] VITALS: BMI 31.2
[2025-04-03] VITALS (8 sets, daily range): BP systolic 127–142; BP diastolic 57–86; PULSE 63–80; RESP 10–23; TEMP 36.6–37; O2SAT 86–97; BMI 31.7
--- NOTE | 2025-04-03 13:04 | ED.AMS ---
HPI - Altered Mental Status General Chief Complaint: Neuro Symptoms/Deficit Stated Complaint: Confused History of Present Illness HPI narrative: 84-year-old gentleman past medical history diabetes CHF history of TIA was at his PCP appointment when he felt weird went blank stared for awhile confused he knows since at that time with concerns for CVA workup needed. PCP his sugar was 346 this happened at 12:27 p.m. brought in via EMS. Patient reports also this morning he was driving here to get blood work drawn and he only lives 2 [address] from the hospital but he got lost does not normally do that. His symptoms have since resolved from the office event he is not having any active chest pain, headache, dizziness, blurred vision, difficulty speaking, swallowing, shortness of breath, numbness tingling, down the arms and legs or weakness or gait instability. Other than what is stated 14 point review of system is negative. Related Data Home Medications ?Medication ?Instructions ?Recorded ?Confirmed glipizide 10 mg tablet, extended 2 tab PO QACBREAK 11/08/17 09/23/23 release 24 hr metformin 500 mg tablet 500 mg PO BIDAC 11/08/17 09/23/23 apixaban 5 mg tablet 5 mg PO BID 07/28/19 09/23/23 aspirin 81 mg tablet,delayed 81 mg PO DAILY 07/28/19 09/23/23 release (Adult Low Dose Aspirin) brimonidine 0.15 % eye drops 1 drp EYE-BOTH BID 07/28/19 09/23/23 cholecalciferol (vitamin D3) 50 2,000 unit PO DAILY 07/28/19 09/23/23 mcg (2,000 unit) tablet clopidogrel 75 mg tablet 75 mg PO DAILY 07/28/19 09/23/23 coenzyme Q10 100 mg capsule 100 mg PO DAILY 07/28/19 09/23/23 dorzolamide 2 %-timolol 0.5 % (PF) 1 drp ophthalmic (eye) BID 07/28/19 09/23/23 eye drops insulin glargine 100 unit/mL 13 unit SUBCUT BID 07/28/19 09/23/23 subcutaneous solution (Lantus U-100 Insulin) latanoprost 0.005 % eye drops 1 drp ophthalmic (eye) BEDTIME 07/28/19 09/23/23 lisinopril 2.5 mg tablet 2.5 mg PO DAILY 07/28/19 09/23/23 metoprolol succinate 25 mg 12.5 mg PO DAILY 07/28/19 09/23/23 tablet,extended release 24 hr pantoprazole 20 mg tablet,delayed 20 mg PO DAILY 07/28/19 09/23/23 release rosuvastatin 40 mg tablet 40 mg PO BEDTIME 07/28/19 09/23/23 spironolactone 25 mg tablet 12.5 mg PO DAILY 07/28/19 09/23/23 Previous Rx's ?Medication ?Instructions ?Recorded furosemide 20 mg tablet 20 mg PO DAILY #30 tabs 07/31/19 cyclobenzaprine 10 mg tablet 10 mg PO TID PRN muscle spasm #30 05/03/22 tabs hydrocodone 5 mg-acetaminophen 325 1 tab PO Q8H PRN pain #20 tabs 05/03/22 mg tablet metoprolol tartrate 25 mg tablet 25 mg PO BID #60 tabs 06/02/22 Allergies Allergy/AdvReac Type Severity Reaction Status Date / Time sulfamethoxazole (From Allergy Intermediate Verified 04/03/25 13:03 Bactrim) trimethoprim (From Bactrim) Allergy Intermediate Verified 04/03/25 13:03 Review of Systems Review of Systems ROS Unobtainable: All systems reviewed & are unremarkable except as noted in HPI and below Patient History Medical History (Updated 04/03/25 @ 15:56 by Abelardo Bustos DO) Hypertension Hyperlipidemia Coronary artery disease Diabetes Social History household members: spouse Smoking Status: Never smoker alcohol intake: never alcohol intake frequency: 0-2 drinks per day Exam Narrative Exam Narrative: GENERAL: [84] year old patient appears stated age. Well-developed patient, in mild distress. HEAD: Atraumatic. Normocephalic. EYES: Pupils equal round and reactive. Extraocular motions intact. No scleral icterus. No injection or drainage. ENT: Nose without bleeding, purulent drainage. Throat without erythema, tonsillar hypertrophy or exudate. Airway patent. NECK: Trachea midline. Non tender CARDIOVASCULAR: Regular rate and rhythm without murmurs, gallops, or rubs. RESPIRATORY: Clear to auscultation. Breath sounds equal bilaterally. No wheezes, rales, or rhonchi. GASTROINTESTINAL: Abdomen soft, non-tender, nondistended. EXTREMITIES: No edema or joint tenderness. BACK: Nontender without deformity or crepitance. No flank tenderness. NEURO: AOx3. GCS 15 nonfocal neuro exam SKIN: No rash or erythema of visible areas Initial Vital Signs Initial Vital Signs: Vital Signs Temperature 98.6 F 04/03/25 13:02 Pulse Rate 65 04/03/25 13:02 Respiratory Rate 18 04/03/25 13:02 Blood Pressure 142/68 H 04/03/25 13:02 Pulse Oximetry 97 04/03/25 13:02 Oxygen Delivery Method Room Air 04/03/25 13:02 Scores NIH Stroke Scale Level of Conciousness: Alert, keenly responsive Ask month/age: Answers both questions correctly. Open/close eyes, close hand: Performs both tasks correctly Best gaze horizontal: Normal Visual haddad: No visual loss Facial palsy: Normal symetrical movement Left arm drift: No drift for full 10 sec Right arm drift: No drift for full 10 sec Left leg drift: No drift for full 5 sec Right leg drift: No drift for full 5 sec Limb ataxia: Absent Sensory on face/arms/legs: Normal, no sensory loss Best language: No aphasia, normal Dysarthria: Normal Extinction or inattention: No abnormality Total NIH Stroke scale score: 0 Course Orders Ordered: ED Orders 04/03/25 13:09 CT angio head and neck Stat CT head/brain wo con Stat XR chest 1V Stat Complete Blood Count AUTO DIFF Stat Comprehensive Metabolic Panel Stat [facility] Creatine Kinase MB Routine Lipase Stat Magnesium Stat NT-proBNP (BNP-Adult 18+) Stat Troponin I Stat EKG-12 Lead Stat 04/03/25 13:31 Ketones (Beta-Hydroxybutyrate) Stat Vital Signs Vital signs: Vital Signs - 8 hr 04/03/25 13:02 Temperature 98.6 F Pulse Rate 65 Respiratory Rate 18 Blood Pressure 142/68 H Pulse Oximetry 97 Oxygen Delivery Method Room Air MDM - Altered Mental Status Lab Data 04/03/25 13:09 04/03/25 13:09 Labs: Lab Results 04/03/25 04/03/25 Range/Units 13:09 13:31 WBC 9.6 (4.5-11.0) X10^3/uL RBC 5.16 (4.5-5.9) X10^6/uL Hgb 15.6 (13.5-17.5) g/dL Hct 46.7 (41-53) % MCV 90.6 (80-100) fL MCH 30.3 (26-34) PG MCHC 33.4 (30-36) % RDW 14.0 (11.6-14.8) % Plt Count 186 (150-400) X10^3/uL Neut % (Auto) 82.8 H (50-75) % Lymph % (Auto) 12.5 L (25-40) % [place] % (Auto) 4.3 (3-14) % Eos % (Auto) 0.1 L (2-4) % Baso % (Auto) 0.3 (0-2) % Neut # (Auto) 8000 H (0114-3814) /uL Lymph # (Auto) 1200 (1675-9958) /uL [place] # (Auto) 400 (0-900) /uL Eos # (Auto) 0 (0-450) /uL Baso # (Auto) 0 (0-100) /uL POC Whole Bld Glucose 409 H (70-99) mg/dL Imaging Data CT scan - head: Radiologist's Impression: [place] [address] CT Scan Report Signed Patient: Jason Ty MR#: [id number] : 1940 Acct:[id number] Age/Sex: 84 / M Date of Service: 04/03/25 Loc: ED Accession Number: [id number] Procedure: CT head/brain wo con Ordering Provider: Abelardo Bustos D.O. PROCEDURE: CT HEAD/BRAIN WO CON INDICATIONS: ams TECHNIQUE: Noncontrast 4.5 mm thick angled axial sections acquired from the foramen magnum to the vertex, with coronal and sagittal reformats. For radiation dose reduction, the following was used: automated exposure control, adjustment of mA and/or kV according to patient size. COMPARISON: [facility], CT, CT HEAD/BRAIN WO CON, 05/04/2023, 9:47. FINDINGS: Image quality: Diagnostic. CSF spaces: Basal cisterns are patent. No extra-axial fluid collections. The ventricles are symmetric in size and shape. Brain: No intracranial bleeds or mass effect. There is cerebral volume loss, with resultant ventricular and sulcal prominence. Right cerebellar lacunar infarct. There are periventricular and deep white matter chronic small vessel ischemic changes. There is intracranial internal carotid artery atherosclerosis. Skull and face: Calvarium and visualized facial bones appear intact, without suspicious lesions. Sinuses: Visualized sinuses and mastoids are clear. IMPRESSION: No acute intracranial pathology. CTA - brain/neck: Radiologist's Impression: [address] [address] [address] Scan Report Signed Patient: Jason Ty MR#: [id number] : 1940 Acct:[id number] Age/Sex: 84 / M Date of Service: 04/03/25 Loc: ED Accession Number: [id number] Procedure: CT angio head and neck Ordering Provider: Abelardo Bustos D.O. PROCEDURE: CT ANGIO HEAD AND NECK INDICATIONS: ams TECHNIQUE: After the administration of intravenous contrast, 1 mm thick sections acquired from the aortic arch through the [place]. 3-dimensional leqbcjx-zvjtunuin-tgtajbgpjx (MIP) and/or volume rendering reformats were acquired of the central intracranial vasculature and neck separately. For radiation dose reduction, the following was used: automated exposure control, adjustment of mA and/or kV according to patient size. COMPARISON: None. FINDINGS: Image quality: Diagnostic. Cerebral CT Angiogram: Internal carotid arteries: Dense atherosclerotic calcifications with areas of up to moderate stenosis of the terminal segment No occlusion. No aneurysm. Anterior cerebral arteries: Unremarkable. No significant stenosis. No occlusion. No aneurysm. Middle cerebral arteries: Unremarkable. No significant stenosis. No occlusion. No aneurysm. Posterior cerebral arteries: Right [employer] appears patent and normal in caliber. Left P1 segment is visible, the remainder is not visualized and likely occluded Basilar artery: Reconstitution of the basilar artery with irregularity and high-grade stenosis proximally. Vertebral arteries: Completely occluded. Dural venous sinuses: Unremarkable given phase of enhancement. Other: Arterial phase appearance of the brain parenchyma is unremarkable. Neck CT Angiogram: Internal carotid arteries: Atherosclerotic calcifications of the bilateral carotid bulbs with mild stenosis of the right proximal ICAs , less than 50 percent and moderate stenosis of the left proximal ICA, approximately 50 percent. No significant stenosis. No dissection or occlusion. Common carotid arteries: Tortuosity at the origin of the right common carotid artery where there appears to be moderate stenosis. No significant stenosis of the left common carotid origin. Otherwise, the common carotid arteries are patent and normal in caliber. External carotid arteries: Unremarkable. No occlusion. Vertebral arteries: Completely occluded bilaterally. Aortic Arch and Mediastinum: Partially visualized aortic arch unremarkable without evidence of aneurysm. Origins of the great vessels unremarkable. Other: Arterial phase soft tissues of the neck and chest are unremarkable. 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 There is reconstitution either at the distal left V4 segment or the proximal basilar segment. The basilar artery demonstrates irregularity with high-grade stenosis proximally. The P1 segment of the left posterior cerebral artery is seen, the rest of the artery is not visualized and likely occluded. Dense calcifications of the intracranial ICAs with moderate stenosis of the terminal segments. The MCAs and ACAs are patent and normal in caliber. Moderate stenosis of the left proximal ICA, approximately 50 percent. Findings communicated to the ordering provider at the time of dictation. Any quantitative measurements of stenosis were performed using NASCET criteria. ECG Data Interpretation: A paced HR 60 MO 296 QRS [address]-t wave change Unchanged from 05/24/24 [facility] Narrative Medical decision making narrative: All lab work, vital signs, nurse triage note, medication list, previous ER visits, and all imaging studies reviewed. CTA showed complete occlusion of the bilateral vertebral arteries. There is reconstitution either at the distal left V4 segment or the proximal basilar segment. Basilar artery demonstrates irregularity with high-grade stenosis proximally. P1 segment of the left posterior cerebral artery seeing the wrist the arteries not visualized and likely occluded. Dense calcifications of the intracranial ICAs with moderate stenosis of the terminal segments the MCAs and ACS are patent and normal in caliber. Moderate stenosis of the left proximal ICA approximately 50%. Patient given 1 L of lactated ringer bolus and 10 units regular insulin. Case discussed with the [facility] stroke neurologist Dr. Lai and Dr.Hope Elder who recommended MRI echo and increasing rosuvastatin to 80 mg. He is already on Eliquis at this time and may consider antiplatelet therapy. Discharge Plan Departure Patient Disposition: Admitted as Observation Clinical Impression: Brain TIA, Acute hyperglycemia Admit Date/Time: 04/03/25 15:49 Admit Provider: Ian Manning
--- NOTE | 2025-04-03 13:09 | DI.CT.S_ITS ---
PROCEDURE: CT HEAD/BRAIN WO CON INDICATIONS: ams TECHNIQUE: Noncontrast 4.5 mm thick angled axial sections acquired from the foramen magnum to the vertex, with coronal and sagittal reformats. For radiation dose reduction, the following was used: automated exposure control, adjustment of mA and/or kV according to patient size. COMPARISON: [facility], CT, CT HEAD/BRAIN WO CON, 05/04/2023, 9:47. FINDINGS: Image quality: Diagnostic. CSF spaces: Basal cisterns are patent. No extra-axial fluid collections. The ventricles are symmetric in size and shape. Brain: No intracranial bleeds or mass effect. There is cerebral volume loss, with resultant ventricular and sulcal prominence. Right cerebellar lacunar infarct. There are periventricular and deep white matter chronic small vessel ischemic changes. There is intracranial internal carotid artery atherosclerosis. Skull and face: Calvarium and visualized facial bones appear intact, without suspicious lesions. Sinuses: Visualized sinuses and mastoids are clear. IMPRESSION: No acute intracranial pathology. Dictated by: Joshua Law M.D. on 04/03/2025 at 14:43 Approved by: Joshua Law M.D. on 04/03/2025 at 14:44
--- NOTE | 2025-04-03 13:09 | DI.CT.S_ITS ---
PROCEDURE: CT ANGIO HEAD AND NECK INDICATIONS: ams TECHNIQUE: After the administration of intravenous contrast, 1 mm thick sections acquired from the aortic arch through the [place] of [place]. 3-dimensional ctyolcg-lvvkozggs-myvowpqlit (MIP) and/or volume rendering reformats were acquired of the central intracranial vasculature and neck separately. For radiation dose reduction, the following was used: automated exposure control, adjustment of mA and/or kV according to patient size. COMPARISON: None. FINDINGS: Image quality: Diagnostic. Cerebral CT Angiogram: Internal carotid arteries: Dense atherosclerotic calcifications with areas of up to moderate stenosis of the terminal segment No occlusion. No aneurysm. Anterior cerebral arteries: Unremarkable. No significant stenosis. No occlusion. No aneurysm. Middle cerebral arteries: Unremarkable. No significant stenosis. No occlusion. No aneurysm. Posterior cerebral arteries: Right DIRECTOR DIVERSITY appears patent and normal in caliber. Left P1 segment is visible, the remainder is not visualized and likely occluded Basilar artery: Reconstitution of the basilar artery with irregularity and high-grade stenosis proximally. Vertebral arteries: Completely occluded. Dural venous sinuses: Unremarkable given phase of enhancement. Other: Arterial phase appearance of the brain parenchyma is unremarkable. Neck CT Angiogram: Internal carotid arteries: Atherosclerotic calcifications of the bilateral carotid bulbs with mild stenosis of the right proximal ICAs , less than 50 percent and moderate stenosis of the left proximal ICA, approximately 50 percent. No significant stenosis. No dissection or occlusion. Common carotid arteries: Tortuosity at the origin of the right common carotid artery where there appears to be moderate stenosis. No significant stenosis of the left common carotid origin. Otherwise, the common carotid arteries are patent and normal in caliber. External carotid arteries: Unremarkable. No occlusion. Vertebral arteries: Completely occluded bilaterally. Aortic Arch and Mediastinum: Partially visualized aortic arch unremarkable without evidence of aneurysm. Origins of the great vessels unremarkable. Other: Arterial phase soft tissues of the neck and chest are unremarkable. 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 There is reconstitution either at the distal left V4 segment or the proximal basilar segment. The basilar artery demonstrates irregularity with high-grade stenosis proximally. The P1 segment of the left posterior cerebral artery is seen, the rest of the artery is not visualized and likely occluded. Dense calcifications of the intracranial ICAs with moderate stenosis of the terminal segments. The MCAs and ACAs are patent and normal in caliber. Moderate stenosis of the left proximal ICA, approximately 50 percent. Findings communicated to the ordering provider at the time of dictation. Any quantitative measurements of stenosis were performed using NASCET criteria. Dictated by: Joshua Law M.D. on 04/03/2025 at 14:46 Approved by: Joshua Law M.D. on 04/03/2025 at 14:57
--- NOTE | 2025-04-03 13:09 | EKG_ITS ---
[address] [address] Test Date: 2025-04-03 Pat Name: Jason Ty Department: Room: Gender: Male Gi Technician: YISEL : 1940 Requested By: Order Number: [id number] Reading MD: Lopez Barakat Measurements Intervals [place] Rate: 60 P: -21 WA: 296 QRS: -40 QRSD: 96 T: 105 QT: 406 QTc: 406 Interpretive Statements Atrial-paced rhythm with prolonged AV conduction Left axis deviation Nonspecific T wave abnormality Electronically Signed On 04-04-2025 17:06:03 PDT by Lopez Barakat
--- NOTE | 2025-04-03 13:09 | DI.RAD.S_ITS ---
PROCEDURE: XR CHEST 1V INDICATIONS: ams TECHNIQUE: One view of the chest was acquired. COMPARISON: [facility], CR, XR CHEST 1V, 05/24/2024, 12:25. [facility], CR, XR CHEST 1V, 06/02/2022, 11:11. FINDINGS: Surgical changes and devices: Aortic valve replacement. 2 lead cardiac pacemaker, unchanged allowing for differences in patient positioning. Surgical clips in the right neck. Lungs and pleura: No pleural effusions or pneumothorax. Faint linear interstitial markings bilaterally. No focal consolidation. Mediastinum: Mediastinal contours appear normal. Cardiomegaly. Bones and chest wall: No suspicious bony lesions. Overlying soft tissues appear unremarkable. IMPRESSION: Cardiomegaly with possible early pulmonary edema. Dictated by: Dennis Bentley M.D. on 04/03/2025 at 14:37 Approved by: Dennis Bentley M.D. on 04/03/2025 at 14:39
[2025-04-03 13:27] LABS: Add Manual Diff / Slide Review NO; Hematocrit 46.7 % (41-53); Hemoglobin 15.6 g/dL (13.5-17.5); Lymphocytes Absolute Auto 1200 /uL (1100-4500); Mean Corpuscular HGB Conc 33.4 % (30-36); Mean Corpuscular Hemoglobin 30.3 PG (26-34); Mean Corpuscular Volume 90.6 fL (80-100); Platelet Count 186 X10^3/uL (150-400)
[2025-04-03 13:33] LABS: Alanine Aminotransferase 29 IU/L (<50); Albumin 4.1 g/dL (3.5-5.0); Albumin Globulin Ratio 1.1 (1.0-2.8); Alkaline Phosphatase 59 U/L (38-126); Blood Urea Nitrogen 25 mg/dL (9-20); Calcium 8.9 mg/dL (8.4-10.2); Carbon Dioxide 28 mmol/L (22-32); Chloride 98 mmol/L (98-107); Estimated Glomerular Filt Rate > 60 mL/min (>60); Globulin 3.6 g/dL (1.7-4.1); Glucose 408 mg/dL (70-99); HEMOLYSIS 18 (0-50); Lipase 56 U/L (23-300); Magnesium 1.8 mg/dL (1.6-2.3); Potassium 5.1 mmol/L (3.4-5.1); Sodium 133 mmol/L (137-145); Total Protein 7.7 g/dL (6.3-8.2)
[2025-04-03 13:44] LABS: NT-proBNP (BNP-Adult 18+) 904 pg/mL (<450); Troponin I < 0.012 ng/mL (0.01-0.034)
[2025-04-03] MEDS: INSULIN REGULAR 100 UNIT/ML 3 ML VIAL 10 UNIT IV (13:49)
[2025-04-03] MEDS: LACTATED RINGERS 1,000 ML 1000 ML IV (13:50)
--- NOTE | 2025-04-03 14:31 | PC.NURSE ---
Pt wanting to go home. States he has to take care of his son and hsi ex is in town and cannot do it all himself. Pt informed we are still waiting for results of Ct scan
[2025-04-03 16:34] LABS: Ketones (Beta-Hydroxybutyrate) 0.18 mmol/L (<0.27)
--- NOTE | 2025-04-03 19:07 | PM.HP.1 ---
History of Present Illness History of Present Illness Date Patient Seen: 04/03/25 Time Patient Seen: 19:08 Date of Onset of Symptoms: 04/03/25 Chief complaint: Confused Narrative: Patient is a 84-year-old male well known to me with multiple vascular issues in the past including left carotid repair and history of TIA. He has had a TAVR 8 years ago. And poorly controlled diabetes. Patient apparently was in his usual health when he woke up today had come down to our clinic and then had went home. Because he was too early. He then came into my office and we were talking and doing well and then he blinked. And then became confused. Did not know where he was did not know who I was did not know date. Was having difficulty talking. Really was talking in poorly-controlled speech. Patient was placed on oxygen aspirin was given and he slowly improved over the next 15 minutes 911 was called he was taken the emergency room during that time he had no motor or other changes. His neurologic exam was otherwise completely normal motor reflexes. Did not walk him at that time. Patient has a history of poorly controlled diabetes he has been to mobile homes repairer and his fear and lack of understanding of what his insulin does not want to treat despite multiple educations sessions by me and again mobile homes repairer if it resulted in him modifying his insulin on a consistent basis. He does have a continuous glucose monitor but he does not really understand how to approach it despite having written information and has resulted in him having poor control. Much of which is his fear of hypoglycemia. Otherwise patient has a history of coronary artery disease. Has been stable as far as the hotel front office manager as concerned. Talking to him now he is back to his normal self. [facility] Medical History Hypertension Hyperlipidemia Coronary artery disease Diabetes Social History household members: children Smoking Status: Never smoker alcohol intake: former Meds Home Medications and Allergies Home Medications ?Medication ?Instructions ?Recorded ?Confirmed ?Type apixaban 5 mg tablet 5 mg PO BID 07/28/19 04/03/25 History brimonidine 0.15 % eye drops 1 drp EYE-BOTH BID 07/28/19 04/03/25 History cholecalciferol (vitamin D3) 50 2,000 unit PO DAILY 07/28/19 04/03/25 History mcg (2,000 unit) tablet dorzolamide 2 %-timolol 0.5 % (PF) 1 drp ophthalmic (eye) BID 07/28/19 04/03/25 History eye drops insulin glargine 100 unit/mL 13 unit SUBCUT BID 07/28/19 04/03/25 History subcutaneous solution (Lantus U-100 Insulin) latanoprost 0.005 % eye drops 1 drp ophthalmic (eye) BEDTIME 07/28/19 04/03/25 History lisinopril 2.5 mg tablet 2.5 mg PO DAILY 07/28/19 04/03/25 History metoprolol succinate 25 mg 12.5 mg PO DAILY 07/28/19 04/03/25 History tablet,extended release 24 hr pantoprazole 20 mg tablet,delayed 20 mg PO DAILY 07/28/19 04/03/25 History release rosuvastatin 40 mg tablet 40 mg PO BEDTIME 07/28/19 04/03/25 History furosemide 20 mg tablet 20 mg PO DAILY #30 tabs 07/31/19 04/03/25 Rx metoprolol tartrate 25 mg tablet 25 mg PO BID #60 tabs 06/02/22 04/03/25 Rx ezetimibe 10 mg tablet 10 mg PO DAILY 04/03/25 04/03/25 History Allergies Allergy/AdvReac Type Severity Reaction Status Date / Time sulfamethoxazole (From Allergy Intermediate Verified 04/03/25 13:03 Bactrim) trimethoprim (From Bactrim) Allergy Intermediate Verified 04/03/25 13:03 Review of Systems Review of Systems Narrative: Patient has overall been feeling well no headaches no other changes. No nausea no vomiting no dizziness no abdominal pain chest pain leg pain Exam Vital Signs (past 8 hours): - 04/03/25 13:02 04/03/25 15:29 04/03/25 15:30 Temperature 98.6 F Pulse Rate 65 77 72 Respiratory Rate 18 22 10 L Blood Pressure 142/68 H Pulse Oximetry 97 96 93 Oxygen Delivery Method Room Air 04/03/25 15:30 04/03/25 15:45 04/03/25 15:45 Temperature Pulse Rate 72 Respiratory Rate 23 Blood Pressure 137/70 129/63 Pulse Oximetry 93 Oxygen Delivery Method 04/03/25 16:07 04/03/25 16:09 04/03/25 16:09 Temperature Pulse Rate 67 80 Respiratory Rate 16 Blood Pressure 131/69 Pulse Oximetry 86 L 96 Oxygen Delivery Method 04/03/25 16:15 04/03/25 16:15 Temperature Pulse Rate 73 Respiratory Rate 20 Blood Pressure 127/57 L Pulse Oximetry 97 Oxygen Delivery Method Oxygen Delivery Method Room Air Narrative Exam Narrative: Alert elderly male currently in no acute distress HEENT exam unremarkable neck supple without adenopathy JVD or bruits lungs are clear heart is regular rate and rhythm without murmurs clicks rubs or gallops abdomen is soft positive bowel sounds nontender extremities without cyanosis clubbing edema neurologic exam shows cranial nerves 2-12 are intact motor is 5/5 reflexes 2+ and symmetric he is alert oriented and recovered Objective Labs 04/03/25 13:09 04/03/25 13:09 Labs: Laboratory Results - last 24 hr 04/03/25 04/03/25 04/03/25 13:00 13:09 13:31 WBC 9.6 RBC 5.16 Hgb 15.6 Hct 46.7 MCV 90.6 MCH 30.3 MCHC 33.4 RDW 14.0 Plt Count 186 Neut % (Auto) 82.8 H Lymph % (Auto) 12.5 L [place] % (Auto) 4.3 Eos % (Auto) 0.1 L Baso % (Auto) 0.3 Neut # (Auto) 8000 H Lymph # (Auto) 1200 [place] # (Auto) 400 Eos # (Auto) 0 Baso # (Auto) 0 Sodium 133 L Potassium 5.1 Chloride 98 Carbon Dioxide 28 BUN 25 H Creatinine 1.05 Estimated GFR > 60 BUN/Creatinine Ratio 23.8 H Glucose 408 H POC Whole Bld Glucose 409 H Calcium 8.9 Magnesium 1.8 Total Bilirubin 0.7 AST 39 ALT 29 Alkaline Phosphatase 59 Troponin I < 0.012 NT-Pro-B Natriuret Pep 904 H Total Protein 7.7 Albumin 4.1 Globulin 3.6 Albumin/Globulin Ratio 1.1 Lipase 56 Ketones 0.18 04/03/25 14:25 WBC RBC Hgb Hct MCV MCH MCHC RDW Plt Count Neut % (Auto) Lymph % (Auto) [place] % (Auto) Eos % (Auto) Baso % (Auto) Neut # (Auto) Lymph # (Auto) [place] # (Auto) Eos # (Auto) Baso # (Auto) Sodium Potassium Chloride Carbon Dioxide BUN Creatinine Estimated GFR BUN/Creatinine Ratio Glucose POC Whole Bld Glucose 340 H Calcium Magnesium Total Bilirubin AST ALT Alkaline Phosphatase Troponin I NT-Pro-B Natriuret Pep Total Protein Albumin Globulin Albumin/Globulin Ratio Lipase Ketones Assessment & Plan Assessment & Plan narrative: TIA with mental confusion. Inpatient who clearly from his CT scan is a vasculopath he has multiple arteries neck and head which are affected. This is high-risk for recurrent disease. Emergency room doctor talked to stroke group and they at this time feel as if he does not need intervention. Can not get MRI because of his pacer. We discussed with the patient will increase his atorvastatin to [address] on Plavix. Puts him at high risk for bleeding but I think this is probably the safest thing and recommended by stroke specialist. At this time he appears stable. Will obtain echo will place on tele and make sure there has been a change with his rhythm and re-evaluate in a.m.. Mental confusion. Secondary to TIA. Appears to be resolved will have to watch closely. High risk for recurrence. See above. Type 2 diabetes poorly controlled. Really it probably at the base of most of his vascular issues. Patient has been on primary prevention for vascular issues with atorvastatin secondary to his coronary artery disease but does not otherwise had good control. This has been a fight for the last 10 years with multiple specialty evaluations and unable to get him to understand his insulin completely. Despite having a monitor 24 hours he still is reluctant to give himself insulin does not understand long-acting versus short-acting despite multiple conversations. We are going to continue to do the best we can will place him on insulin and split his dose for now. Of his Lantus we will put him on a high dose sliding scale and try to control his sugars while he is here as best we can. Hypertension. Continue usual meds Coronary artery disease appears to be stable. Negative troponin. No symptoms. We will be increasing his Lipitor but otherwise will continue his usual medicines. History of renal failure. Appears to be stable at this time. Will follow. 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 Stable. He does not appear to be in failure at this time. Will continue to follow. DVT prophylaxis on Eliquis Code status DNR. Disposition. Will follow for 24 hours at least. May need to be here a little longer for stability. Will obtain echo see what that shows an polyp follow from there. Patient understands. Questions answered. 80 minutes spent with the patient to emergency room orders nursing dictation Time-Based Coding :: [TOTAL MINUTES] spent with patient and on the chart (including review of chart, obtaining history, exam, reviewing outside data, placing orders, documenting exam and treatment plan, and counseling patient) on [DATE]. Quality VTE Deep Vein Thrombosis/Pulmonary Embolism Present on Admission: No
[2025-04-03] MEDS: APIXABAN 5 MG TABLET PO (21:36)
[2025-04-03] MEDS: ATORVASTATIN 20 MG TABLET 80 MG PO (21:36)
[2025-04-03] MEDS: INSULIN GLARGINE 100 UNIT/ML 3ML PEN 13 UNIT SUBCUT (22:07)
[2025-04-03] MEDS: INSULIN LISPRO 100 UNIT/ML 3ML VIAL SUBCUT (22:08)
[2025-04-04] VITALS: BP 119/72; PULSE 73; RESP 17; TEMP 36.5; O2SAT 98
[2025-04-04 06:24] LABS: Add Manual Diff / Slide Review NO; Hematocrit 40.7 % (41-53); Hemoglobin 13.6 g/dL (13.5-17.5); Lymphocytes Absolute Auto 1700 /uL (1100-4500); Mean Corpuscular HGB Conc 33.5 % (30-36); Mean Corpuscular Hemoglobin 30.1 PG (26-34); Mean Corpuscular Volume 89.9 fL (80-100); Platelet Count 162 X10^3/uL (150-400)
[2025-04-04 06:47] LABS: Alanine Aminotransferase 21 IU/L (<50); Albumin 3.3 g/dL (3.5-5.0); Albumin Globulin Ratio 1.0 (1.0-2.8); Alkaline Phosphatase 47 U/L (38-126); Blood Urea Nitrogen 22 mg/dL (9-20); Calcium 8.6 mg/dL (8.4-10.2); Carbon Dioxide 28 mmol/L (22-32); Chloride 103 mmol/L (98-107); Estimated Glomerular Filt Rate > 60 mL/min (>60); Globulin 3.2 g/dL (1.7-4.1); Glucose 178 mg/dL (70-99); HEMOLYSIS 15 (0-50); Potassium 4.2 mmol/L (3.4-5.1); Sodium 137 mmol/L (137-145); Total Protein 6.5 g/dL (6.3-8.2)
[2025-04-04 06:53] LABS: Cholesterol 102 mg/dL (140-199); HDL Cholesterol 42 mg/dL (40-60); Triglycerides 71 mg/dL (35-150)
[2025-04-04 06:54] LABS: Hemoglobin A1C% w Est Avg Glu 8.5 % (4.0-6.0)
[2025-04-04 07:00] VITALS: BP 121/64; PULSE 63; RESP 18; TEMP 36.4; O2SAT 100
[2025-04-04 07:26] LABS: Thyroid Stimulating Hormone 2.26 uIU/mL (0.47-4.68)
[2025-04-04] MEDS: INSULIN LISPRO 100 UNIT/ML 3ML VIAL SUBCUT ×2 (08:23→11:45)
[2025-04-04] MEDS: CLOPIDOGREL 75 MG TABLET PO (09:36)
[2025-04-04] MEDS: EZETIMIBE 10 MG TABLET PO (09:36)
[2025-04-04] MEDS: METOPROLOL ER 25 MG TABLET 12.5 MG PO (09:36)
[2025-04-04] MEDS: INSULIN GLARGINE 100 UNIT/ML 3ML PEN 13 UNIT SUBCUT (09:36)
[2025-04-04] MEDS: APIXABAN 5 MG TABLET PO (09:36)
[2025-04-04] MEDS: PANTOPRAZOLE DR 20 MG TABLET PO (09:37)
--- NOTE | 2025-04-04 11:03 | DIET.CONS ---
Dietary Consultation Note Admission Date: 04/03/2025 15:49 Assessment: 84 y M admitted for TIA, dietitian consulted for not understanding BG/fear of insulin. Met with pt at bedside, had his CGM jess paul and gas leak tester. Pt has range normal range set for 70-180. Reports not taking his lantus last couple weeks d/t busy with other things. Notes his BG have been higher lately. Report better BG range when on lantus and understanding and willing to go back on his lantus. Diet recall: B-pastry, coffee, hardboiled egg L-nuts D-meal with chk Snack-pie/nuts Ht: 172.72 cm Wt: 94.619 kg BMI: 31.7 Last BM: 04/03/25 (04/03/25 16:36) MNA: 14 Jakob Score: 21 Diet: 04/04/25 Breakfast Carbohydrate Consistent Diet Diet Modifications: Carbohydrate level: Large (4 CHO) Bedtime snack: Yes Reflex DM orders: No Food Texture: Level 7 - Regular Liquid Consistency: Level 0 - Thin Nutrition Percent Meal Consumed 100% 04/04/25 08:41 Percent Meal Consumed 50% 04/04/25 05:04 Labs: RBC 4.53 X10^6/uL (4.5-5.9) 04/04/25 05:43 Hgb 13.6 g/dL (13.5-17.5) 04/04/25 05:43 Hct 40.7 % (41-53) L 04/04/25 05:43 Creatinine 0.90 mg/dL (0.66-1.25) 04/04/25 05:43 Hemoglobin A1c 8.5 % (4.0-6.0) H 04/04/25 05:43 NT-Pro-B Natriuret Pep 904 pg/mL (<450) H 04/03/25 13:09 Nutrition Diagnosis: Altered nutrition related lab values (A1c%) r/t not taking insulin regularly as evidenced by pt report, 8.5% A1c Interventions: -Encouraged prescribed medications daily -Discussed CHO amounts to aim at meals using portion sizing, choosing fibrous carbs over refined, pairing with protein EER: 45-60 g CHO at meals, 15-30 g at snacks Monitoring/Evaluations: BG Electronically Signed by: Janya Estes 04/04/25 11:03 Clinical Dietitian [address] [address]
[2025-04-04 11:52] VITALS: BP 127/74; PULSE 76; RESP 18; TEMP 36.6; O2SAT 97
--- NOTE | 2025-04-04 12:34 | CM.DANOTE ---
Patient is an 84 yo male who was admitted OBS Status on 04/03/25 for TIA vs uncontrolled diabetes. Pt has [facility] for insurance and his PCP is Dr. Ian Manning at [facility]. EMR was reviewed. Per MD, pt with hx of TIA and poorly controlled DM and was in his outpt office today for scheduled blood sugar check and pt had blank stare, slurred speech, confusion and was brought to the ED and admitted for observation and further follow up. Echo completed but waiting to be read by pt's Forms Designer at [facility]. Pt has Pulmonary Function Technician as well but has difficulty/uncomfortable with insulin and diabetes education. PT/OT/ST ordered but symptoms seem resolved. Ream Cutter to see pt to further provide diabetes education and information. SW met bedside with pt and explained role and pt very talkative and agreeable and confirms he lives in [place] and his adult son has moved in with him about a year ago as son has had multiple shoulder surgeries and unable to work at this time. Pt is active and independent at baseline, does not use DME for ambulation and denies any hx of HH or SNF. 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 Pt has 4 stents and a TAVR and follow with his Forms Designer at [facility]. Pt has a Living Will and POA but states he recently updated his medical POA to his ex- Chrissy Ty ([phone]) as his prior POA was his Sig Other who two years ago. Pt states he is on very amiable terms with is ex-, that they are friends, and she is currently staying with him as well to assist with adult son who recently had shoulder revision surgery and in a sling (adult son has high functioning Autism). Pt preference is to d/c home when stable, hoping for today, and states Chrissy plans to provide transport at d/c and pt's only concern is now reducing his driving since he is worried about further episodes like TIA while driving. Pt has been very independent and is willing to give up his driving if needed. Pt will talk further with his PCP and Forms Designer about what they recommend. Plan: SW to follow for Echo results and labs to confirm safe plan of d/c home with family support and any further identified discharge planning needs. SAMPSON Edmondson Discharge Planning/Care Management CM Discharge Assessment Start: 04/03/25 16:35 Freq: Status: Active Protocol: Document 04/04/25 12:29 BF (Rec: 04/04/25 12:34 BF [id number]) Discharge Planning Assessment Assigned Discharge SAMPSON Coughlin Busgirl Provider Dr. Ian Manning [facility] DPOA/Assigned ex Chrissy Ty Designee Name Contact Information [phone] Advance Directives? Yes Advance Directives No on File History Provided By Patient,Medical Record Has Patient been No admitted in last 30 days? Prior Living House Arrangements Household Members children Type of Drives own vehicle transporation used prior to admit Independent with ADL Yes 's Is patient alert and Yes oriented? Caregiver for No Another Barriers to No Discharge Discharge Plan Home Transportation Family Arrangement Referrals Initiated None needed Whiteboard Updated Yes in Patient Room with name and ext. # of Environmental Health And Safety Manager Review Status In Process Please Provide Date 04/04/25 Initial DC Assessment Was Performed Next Review Type Continued Stay Review
--- NOTE | 2025-04-04 12:55 | SLP.IPNOTE ---
Chart reviewed and RN consulted. RN reported pt appears to be back to baseline. Pt alert and oriented upon INSOLE AND HEEL STIFFENER entry. He denied swallowing difficulties. He denied s/sx of aphasia or cognitive-communication impairment. He participated in conversation re: case history and current symptoms without overt difficulty. No further INSOLE AND HEEL STIFFENER services are warranted at this time. Recommend pt monitor for changes following discharge home and request referral for INSOLE AND HEEL STIFFENER services from PCP if needed.
--- NOTE | 2025-04-04 13:31 | OT.IPNOTE ---
Per pt's doctor, pt being discharged and ok to discharge therapy eval orders.
--- NOTE | 2025-04-04 13:34 | PM.DS.1 ---
History of Present Illness History of Present Illness Date Patient Seen: 04/04/25 Time Patient Seen: 13:34 Date of Onset of Symptoms: 04/03/25 Chief complaint: Confused Narrative: Patient is a 84-year-old male well known to me with multiple vascular issues in the past including left carotid repair and history of TIA. He has had a TAVR 8 years ago. And poorly controlled diabetes. Patient apparently was in his usual health when he woke up today had come down to our clinic and then had went home. Because he was too early. He then came into my office and we were talking and doing well and then he blinked. And then became confused. Did not know where he was did not know who I was did not know date. Was having difficulty talking. Really was talking in poorly-controlled speech. Patient was placed on oxygen aspirin was given and he slowly improved over the next 15 minutes 911 was called he was taken the emergency room during that time he had no motor or other changes. His neurologic exam was otherwise completely normal motor reflexes. Did not walk him at that time. Patient has a history of poorly controlled diabetes he has been to institution director and his fear and lack of understanding of what his insulin does not want to treat despite multiple educations sessions by me and again institution director if it resulted in him modifying his insulin on a consistent basis. He does have a continuous glucose monitor but he does not really understand how to approach it despite having written information and has resulted in him having poor control. Much of which is his fear of hypoglycemia. Otherwise patient has a history of coronary artery disease. Has been stable as far as the alignment mechanic as concerned. Talking to him now he is back to his normal self. Discharge Providers Provider Date of admission: 04/03/25 15:49 Discharge Date: 04/04/25 Primary care physician: Ian Manning MD Consults: 04/03/25 18:58 Consult to Discharge Planning Routine Comment: Consult to Occupational Therapy Evaluate & Treat Comment: Physician Instructions: Evaluate and treat Consult to Physical Therapy Evaluate & Treat Comment: Physician Instructions: Evaluate and Treat Consult to Speech Therapy Evaluate & Treat Comment: Physician Instructions: Evaluate and treat 04/04/25 08:57 Consult to Dietitian, Adult Routine Comment: Reason For Exam: Does not understand/has fear of insulin Discharge provider: Ian Manning MD Summary Hospital Course Discharge Diagnosis: TIA Mental confusion Coronary artery disease Aortic valve replacement Hypertension Poorly controlled diabetes Hospital Course: TIA. Patient was admitted and had returned back to normal. Unable to get MRI due to his pacemaker. Echo was obtained today and was pending. I do not think this is going to change what we did he is already on Eliquis and now Plavix. Following the recommendation of the neurologist he was increased to 80 mg of his Lipitor and Plavix. We may go but to aspirin will see how things go. CT scan of his head showed severe disease in multiple vessels I think this is high-risk for recurrence will get neurologist evaluation as outpatient. Do not think it is going to change what we do today and honestly I do not think it is going to change what we do given the fact that these are all small vessels. But I think he is high-risk. He understands we had a long discussion about this. Mental confusion. Secondary to TIA. Completely cleared. Normalize at this time. Normal neurologic exam. Will just have to hope nothing recurs in the Plavix works. Coronary artery disease. Stable. No evidence of ongoing disease. Aortic valve disease. On Eliquis. Will continue. Hypertension. Numbers look good. Will continue. Poorly-controlled diabetes type 2. I am going to long discussions with him I discussed today I think a lot of his vascular disease is probably related to his poor control over the last several years. It has not helping us for sure. Patient had stopped his daily large in dose even know his sugars were getting better and he does not know why. Some stress at home. Again we discussed the importance of large in what different insulin does different times. He has not understood this for some time but we will continue to educate. He does not want to see an institution director because he does not feel like it helped. I am not sure he really understood what they were trying to attempt. We will see how things go and follow. Continue his usual meds Exam Vital Signs (past 8 hours): - 04/04/25 07:00 04/04/25 11:52 Temperature 97.6 F 97.8 F Pulse Rate 63 76 Respiratory Rate 18 18 Blood Pressure 121/64 127/74 Pulse Oximetry 100 97 Oxygen Delivery Method Room Air Oxygen Flow Rate 0 Narrative Exam Narrative: Alert elderly male in no acute distress Lungs are clear heart is regular rate and rhythm neurologic exam he is alert oriented and having no other issues. Normal motor reflexes. Objective Labs 04/04/25 05:43 04/04/25 05:43 Labs: Laboratory Results - last 24 hr 04/03/25 04/03/25 04/03/25 13:00 13:09 14:25 WBC RBC Hgb Hct MCV MCH MCHC RDW Plt Count Neut % (Auto) Lymph % (Auto) Thayer % (Auto) Eos % (Auto) Baso % (Auto) Neut # (Auto) Lymph # (Auto) Thayer # (Auto) Eos # (Auto) Baso # (Auto) Sodium 133 L Potassium Chloride 98 Carbon Dioxide 28 BUN 25 H Creatinine 1.05 Estimated GFR > 60 BUN/Creatinine Ratio 23.8 H Glucose 408 H POC Whole Bld Glucose 340 H Hemoglobin A1c Calcium 8.9 Magnesium 1.8 Total Bilirubin 0.7 AST 39 ALT 29 Alkaline Phosphatase 59 Troponin I < 0.012 NT-Pro-B Natriuret Pep 904 H Total Protein 7.7 Albumin 4.1 Globulin 3.6 Albumin/Globulin Ratio 1.1 Triglycerides Cholesterol LDL Cholesterol, Calc HDL Cholesterol Lipase 56 TSH Ketones 0.18 04/03/25 04/04/25 04/04/25 20:15 05:43 07:19 WBC 9.7 RBC 4.53 Hgb 13.6 Hct 40.7 L MCV 89.9 MCH 30.1 MCHC 33.5 RDW 13.8 Plt Count 162 Neut % (Auto) 72.0 Lymph % (Auto) 18.0 L Thayer % (Auto) 9.5 Eos % (Auto) 0.2 L Baso % (Auto) 0.3 Neut # (Auto) 7000 Lymph # (Auto) 1700 Thayer # (Auto) 900 Eos # (Auto) 0 Baso # (Auto) 0 Sodium 137 Potassium 4.2 Chloride 103 Carbon Dioxide 28 BUN 22 H Creatinine 0.90 Estimated GFR > 60 BUN/Creatinine Ratio 24.4 H Glucose 178 H D POC Whole Bld Glucose 199 H D 185 H Hemoglobin A1c 8.5 H Calcium 8.6 Magnesium Total Bilirubin 0.7 AST 36 ALT 21 Alkaline Phosphatase 47 Troponin I NT-Pro-B Natriuret Pep Total Protein 6.5 Albumin 3.3 L Globulin 3.2 Albumin/Globulin Ratio 1.0 Triglycerides 71 Cholesterol 102 L LDL Cholesterol, Calc 46 HDL Cholesterol 42 Lipase TSH 2.26 Ketones 04/04/25 11:20 WBC RBC Hgb Hct MCV MCH MCHC RDW Plt Count Neut % (Auto) Lymph % (Auto) Thayer % (Auto) Eos % (Auto) Baso % (Auto) Neut # (Auto) Lymph # (Auto) Thayer # (Auto) Eos # (Auto) Baso # (Auto) Sodium Potassium Chloride Carbon Dioxide BUN Creatinine Estimated GFR BUN/Creatinine Ratio Glucose POC Whole Bld Glucose 239 H Hemoglobin A1c Calcium Magnesium Total Bilirubin AST ALT Alkaline Phosphatase Troponin I NT-Pro-B Natriuret Pep Total Protein Albumin Globulin Albumin/Globulin Ratio Triglycerides Cholesterol LDL Cholesterol, Calc HDL Cholesterol Lipase TSH Ketones PFSH Medical History Hypertension Hyperlipidemia Coronary artery disease Diabetes Social History household members: children Smoking Status: Never smoker alcohol intake: former Discharge Assessment & Plan Assessment and Plan Assessment: Improved Plan of Treatment: Discharge home Discharge Plan Discharge Plan Patient Disposition: Home Discharge orders & Medications Prescriptions: New clopidogrel 75 mg Tablet 75 mg PO DAILY Qty: 60 3RF Continued latanoprost 0.005 % Drops 1 drp OPHTHALMIC (EYE) BEDTIME insulin glargine [Lantus U-100 Insulin] 100 unit/mL Solution 13 unit SUBCUT BID pantoprazole 20 mg Tablet,Delayed Release (Dr/Ec) 20 mg PO DAILY metoprolol succinate 25 mg Tablet Extended Release 24 Hr 12.5 mg PO DAILY Patient Comments: X2 in am X1 at hs lisinopril 2.5 mg Tablet 2.5 mg PO DAILY brimonidine 0.15 % Drops 1 drp EYE-BOTH BID rosuvastatin 40 mg Tablet 40 mg PO BEDTIME apixaban 5 mg Tablet 5 mg PO BID dorzolamide-timolol (PF) 2-0.5 % Drops 1 drp OPHTHALMIC (EYE) BID cholecalciferol (vitamin D3) 2,000 unit Tablet 2,000 unit PO DAILY furosemide 20 mg tablet 20 mg PO DAILY Qty: 30 1RF Rx Instructions: please take in am if weight increased greater than 2 pounds over 1-2 days metoprolol tartrate 25 mg tablet 25 mg PO BID Qty: 60 1RF ezetimibe 10 mg tablet 10 mg PO DAILY Follow up/Referrals: Ian Manning MD [Primary Care Provider, Family Practice] - 04/16/25 Referral Note: Please call for appointment Discharge Health Status Multidrug resistant organism: No MDRO Diet/Activity/Treatments Diet: Diet as Tolerated Activity: No driving Skin/Wound/Dressing Care Report to your healthcare provider any signs of infection, such as:: chills, fever Visit Report/Discharge Packet Stand Alone Forms: Patient Portal/API, Stroke Signs & Symptoms Discharge Data Primary Care Provider: Ian Manning Attending Provider: Ian Manning Admit Date/Time: 04/03/25 15:49 Quality VTE Deep Vein Thrombosis/Pulmonary Embolism Present on Admission: No
--- NOTE | 2025-04-04 14:04 | PC.NURSE ---
Discharge instructions given and understood. PIV and data visualization developer removed. Pt discharged with pt's friend via private vehicle, escorted to the entrance via wheelchair.
--- NOTE | 2025-04-04 19:01 | DI.ECHO.S_ITS ---
[facility] : : [id number] : [place] : : [id number] : : Phone: [phone] Echocardiogram Report + + :Name: DAVID COATES Study Date: 04/04/2025 Height: 68 in : :[facility] ReadingLocation: Weight: 208 lb : : Gender: Male BSA: 2.1 m2 : :: 1940 Age: 84 yrs BP: 119/72 mmHg: :Reason For Study: TIA : :Ordering Physician: DEMETRIS, : :MARCELLA Performed By: Mook Alvarez : :Referring: MARCELLA WILLSON : + + Interpretation Summary This is a technically difficult study enhanced with Definity echo contrast. Normal sinus rhythm with frequent PVCs. Normal LV size and wall thickness. There is septal dyssynchrony which in the right clinical setting could be due to conduction system disease or postoperative state. EF is 30-35%. Moderate mitral annular calcification. Aortic valve is replaced by history via TAVR. No paravalvular leak. Prosthesis is functioning normally. Peak velocity is 2 m/s and mean gradient is 10 mmHg. Mildly dilated aortic root measuring 4.1 cm in diameter. Mildly dilated ascending aorta measuring 4 cm in diameter. Compared to prior echo June 2024, LV appears less dynamic. However could also be due to differences in technique because previous study was not enhanced and current study has been enhanced with Definity. In terms of aortic valve function and ascending aorta dimension, no significant changes have occurred. Procedure: A two-dimensional transthoracic echocardiogram with color flow and Doppler was performed. A contrast injection of Definity was performed to improve assessment of LV function. The study quality was technically adequate. Comparison is made with the echocardiogram of 07/04/2024. The patient was in normal sinus rhythm during the exam. The patient had frequent PVCs during the exam. Left Ventricle: The left ventricle is normal in size. There is normal left ventricular wall thickness. There is no ventricular septal defect visualized. The ejection fraction is estimated to be 30-35%. There is moderate to severe global hypokinesis of the left ventricle. There is a significant dyssynchronous contraction pattern due to the paced rhythm. Right Ventricle: The right ventricle is mildly dilated. There is a pacemaker lead in the right ventricle. The right ventricular systolic function is normal. Atria: The left atrial size is normal. Borderline right atrial enlargement. There is no Doppler evidence for an interatrial shunt. Mitral Valve: There is mild to moderate mitral annular calcification. The mitral valve leaflets appear mildly thickened. There is mild mitral regurgitation. 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 The peak aortic velocity is 2.36 m/sec. The aortic valve mean gradient is 12.1 mmHg. No aortic regurgitation is present. Tricuspid Valve: The tricuspid valve leaflets are thin and pliable. There is mild tricuspid regurgitation. The right ventricular systolic pressure is estimated to be at least 34 mmHg based on an estimated right atrial pressure of 3 mm Hg. Pulmonic Valve: The pulmonic valve leaflets are thin and pliable; valve motion is normal. There is no pulmonic valvular regurgitation. Great Vessels: The aortic root is mildly dilated. The ascending aorta is mildly enlarged. The pulmonary artery is normal size. The IVC is of normal diameter and collapses greater than 50% with a sniff. This suggests a low right atrial pressure of 3 mm Hg. Pericardium/ Pleura There is no pericardial effusion. There is no pleural effusion. MMode/2D Measurements & Calculations LVIDd: 5.7 cm LVOT diam: 1.7 cm LVIDs: 4.6 cm Ao root diam: 4.1 cm FS: 18.9 % asc Aorta Diam: 4.0 cm EPSS: 1.0 cm IVSd: 0.94 cm LVPWd: 1.0 cm LV solano. diameter/BSA (cm/m^2): 2.7 LV sys. diameter/BSA (cm/m^2): 2.2 LA A2 area: 19.1 cm2 RA long axis: 6.0 cm LA A4 area: 22.0 cm2 RA area: 19.1 cm2 LA length (vol): 5.8 cm RA vol: 51.6 ml LA vol: 61.4 ml RA : 24.8 ml/m2 LA vol index: 29.5 ml/m2 IVC diam: 1.8 cm RVD1 (basal): 4.3 cm RVD2 (mid): 3.0 cm TAPSE: 3.1 cm Doppler Measurements & Calculations Ao V2 max: 236.4 cm/sec LVOT Max Tony: 83.4 cm/sec Ao V2 mean: 163.4 cm/sec LV V1 max P.8 mmHg Ao max P.3 mmHg LV V1 VTI: 21.0 cm Ao mean P.1 mmHg JANA(I,D): 0.98 cm2 Ao V2 VTI: 49.4 cm JANA(V,D): 0.81 cm2 sev ratio: 0.42 JANA indexed to BSA (cm^2/m^2): 0.47 MV E max tony: 85.9 cm/sec TR max tony: 279.5 cm/sec MV A max tony: 85.1 cm/sec TR max P.2 mmHg MV E/A: 1.0 PA V2 max: 101.7 cm/sec Med Peak E' Tony: 2.9 cm/sec PA V2 mean: 67.8 cm/sec E/E' med: 29.6 PA mean P.0 mmHg Lat Peak E' Tony: 6.7 cm/sec PA pr(Accel): 44.7 mmHg E/E' lat: 12.9 E/e' average: 21.3 MV dec time: 0.16 sec SV(LVOT): 48.2 ml Electronically signed by: Katrin Bryson M.D. on Reading Physician:04/04/2025 01:26 PM
[2025-04-08 13:14] LABS: Labcorp Creatine Kinase MB 2.0 ng/mL (0.0-10.4)
== END 2025-04-04 14:07 | disposition home or self-care (01) ==
LOC: ED 15:50 → AC 15:52
PROVIDERS: Admitting Provider Family Medicine; Emergency Provider Family Medicine; Family Provider Family Medicine; PCP Family Medicine; Referring Provider Family Medicine; Visit Provider Family Medicine
DX: G45.9 Transient cerebral ischemic attack, unspecified (principal); E11.9 Type 2 diabetes mellitus without complications; R29.700 NIHSS score 0; I25.10 Atherosclerotic heart disease of native coronary artery without angina pectoris; E78.5 Hyperlipidemia, unspecified; I11.0 Hypertensive heart disease with heart failure; I50.42 Chronic combined systolic (congestive) and diastolic (congestive) heart failure; Z79.01 Long term (current) use of anticoagulants; Z95.0 Presence of cardiac pacemaker; Z79.4 Long term (current) use of insulin; Z86.73 Personal history of transient ischemic attack (TIA), and cerebral infarction without residual deficits; Z66 Do not resuscitate
CPT/HCPCS: 36415; 70450; 70496; 70498; 71045; 80053; 80061; 81003; 82009; 82553; 82962; 83036; 83690; 83735; 83880; 84443; 84484; 85025; 93005; 96361; 96372; 96374; 99284; G0378; C8929; J1815; J7120; Q9957; Q9967